=== PATIENT | female | born 1970 | race Caucasian/White ===

== ENCOUNTER → 2017-03-17 08:59 | Outpatient (CLI) | payer BC, SELFPAY ==
--- NOTE | 2017-03-17 09:24 | CA_ITS ---
PROCEDURE: 2-D echo Doppler study INDICATIONS FOR THE TEST: Chest pain COPD Heart MurmurX Tobacco Smoking Palpitations Fatigue Syncope Edema Hypertension Diabetes Mellitus Rheumatic Fever SOBXDOE Obesity HyperlipidemiaX Family History HD Additional History PATIENT INFORMATION HEIGHT: 62 WEIGHT:145 GENDER: Female B/P:121/84 2-D/M-MODE INTERPRETATION: 2-D MEASUREMENTS OBSERVED VALUES IN CMS Right Ventricular Dimension (RVDd) 1.9 Interventricular Septum (Thickness)(IVsd) .7 Left Ventricular Internal Dimensions(LVIDd) 5.2 Left Ventricular Posterior Wall (Thickness)(LVPWd) .6 Aortic Root 2.6 Aortic Cusp Separation 1.4 Left Atrial Dimensions (LAD) 2.6 2D 1. Left atrium is normal size, left ventricle is normal size hypertrophy, visually estimated ejection fraction 55% with no obvious regional wall motion abnormality. 2. The right atrium and right ventricle are normal size and contractility. 3. The aortic, mitral and tricuspid valve are structurally normal. 4. The pulmonic valve is poorly visualized 5. No significant pericardial effusion noted. DOPPLER INTERROGATION: Doppler interrogation of the aortic, mitral and tricuspid valvular presence of mild mitral and tricuspid regurgitation, tricuspid and jet velocity is insufficient for calculation of the right ventricular systolic pressure, diastolic parameters are within normal range. CONCLUSION: 1. Normal left ventricular size, preserved left ventricular systolic function, visually estimated ejection fraction 55% with no obvious regional wall motion abnormality. Diastolic parameters are within normal range. 2. Mild mitral and tricuspid regurgitation 3. No significant pericardial effusion noted.
== END ==
LOC: RT 08:59
PROVIDERS: Family Provider Emergency Medicine; PCP Emergency Medicine; Visit Provider Internal Medicine
DX: R06.02 Shortness of breath (principal)
CPT/HCPCS: 93306

== ENCOUNTER → 2017-04-28 13:20 | Outpatient (CLI) | payer BC, SELFPAY ==
[2017-04-28 14:14] LABS: Basophils % 0.6 % (0.1-2.0); Eosinophils # 0.2 K/mm3 (0.0-0.4); Eosinophils % 2.9 % (0.1-12.0); Hematocrit 43.7 % (37.0-47.0); Hemoglobin 14.5 g/dL (12.2-16.2); Lymphocytes # 2.5 K/mm3 (0.7-4.5); Lymphocytes % 31.9 K/mm3 (10-50); Mean Corpuscular HGB Conc 33.3 g/dL (31.8-35.4); Mean Corpuscular Hemoglobin 31.2 pg (27.0-31.2); Mean Corpuscular Volume 93.7 fl (81-99); Mean Platelet Volume 7.4 fl (7.4-10.4); Monocytes # 0.4 K/mm3 (0.1-1.0); Monocytes % 4.5 % (1.7-9.3); Neutrophils # 4.6 K/mm3 (1.8-7.8); Neutrophils % 60.1 % (37.0-80.0); Platelet Count 372 K/mm3 (142-424); Red Blood Count 4.66 M/mm3 (4.20-5.40); Red Cell Distribution Width 12.4 % (11.5-17.5); White Blood Count 7.7 K/mm3 (4.8-10.8)
[2017-04-28 14:33] LABS: Troponin I < 0.02 ng/ml (0.00-0.06)
[2017-04-28 14:38] LABS: Anion Gap 10.8 mEq/L (5-15); Blood Urea Nitrogen 12 mg/dL (7-18); Carbon Dioxide 30 mmol/L (21.0-32.0); Chloride 105 mmol/L (98-107); Creatinine,Serum 0.74 mg/dL (0.55-1.02); Estimated Glomerular Filt Rate 84 ml/min (>60); Free T4 (Free Thyroxine) 0.77 ng/dl (0.76-1.46); GFR (African American) 102 ML/MIN (>60); Glucose 87 mg/dL (74-106); Potassium 3.8 mmoL/L (3.5-5.1); Sodium 142 mmol/L (136-145); Thyroid Stimulating Hormone 2.61 uIU/ml (0.358-3.740)
== END ==
PROVIDERS: Visit Provider Internal Medicine
DX: R07.9 Chest pain, unspecified (principal)
CPT/HCPCS: 36415; 80048; 84439; 84443; 84484; 85025

== ENCOUNTER → 2017-05-04 08:05 | Outpatient (CLI) | payer BC, SELFPAY | LOC: RT 08:05 | PROVIDERS: Family Provider Emergency Medicine; PCP Emergency Medicine; Visit Provider Internal Medicine | DX: R07.9 Chest pain, unspecified (principal) | CPT/HCPCS: 93017 ==

== ENCOUNTER → 2017-05-15 15:24 | Outpatient (CLI) | payer BC, SELFPAY ==
[2017-05-15 18:23] LABS: Amphetamine/Metha Screen,Urine Negative ng/mL (<1000); Barbiturates Screen,Urine Negative ng/mL (<200); Benzodiazepines Screen,Urine Positive ng/mL (200); Cannabinoid Screen,Urine Negative ng/mL (<50); Cocaine Screen,Urine Negative ng/g (<300); Methadone Screen,Urine Negative ng/mL (<300); Opiate Screen,Urine Negative ng/mL (<300); Phencyclidine Screen,Urine Negative ng/mL (<25)
== END ==
PROVIDERS: Visit Provider Emergency Medicine
DX: Z79.899 Other long term (current) drug therapy (principal)
CPT/HCPCS: 80305

== ENCOUNTER → 2017-07-01 15:05 | Outpatient (REF) | payer BC, SELFPAY ==
[2017-07-01 18:56] LABS: Amphetamine/Metha Screen,Urine Negative ng/mL (<1000); Barbiturates Screen,Urine Negative ng/mL (<200); Benzodiazepines Screen,Urine Positive ng/mL (200); Cannabinoid Screen,Urine Negative ng/mL (<50); Cocaine Screen,Urine Negative ng/g (<300); Methadone Screen,Urine Negative ng/mL (<300); Opiate Screen,Urine Negative ng/mL (<300); Phencyclidine Screen,Urine Negative ng/mL (<25)
== END ==
LOC: LAB 15:05
PROVIDERS: Visit Provider Emergency Medicine
DX: Z79.891 Long term (current) use of opiate analgesic (principal)
CPT/HCPCS: 80305

== ENCOUNTER → 2017-08-12 15:31 | Outpatient (REF) | payer BC, SELFPAY ==
[2017-08-12 18:57] LABS: Amphetamine/Metha Screen,Urine Negative ng/mL (<1000); Barbiturates Screen,Urine Negative ng/mL (<200); Benzodiazepines Screen,Urine Positive ng/mL (200); Cannabinoid Screen,Urine Negative ng/mL (<50); Cocaine Screen,Urine Negative ng/g (<300); Methadone Screen,Urine Negative ng/mL (<300); Opiate Screen,Urine Negative ng/mL (<300); Phencyclidine Screen,Urine Negative ng/mL (<25)
== END ==
LOC: LAB 15:31
PROVIDERS: Visit Provider Emergency Medicine
DX: Z79.899 Other long term (current) drug therapy (principal)
CPT/HCPCS: 80305

== ENCOUNTER → 2017-11-04 16:19 | Outpatient (CLI) | payer BC, SELFPAY | PROVIDERS: Visit Provider Emergency Medicine | DX: R53.83 Other fatigue (principal) ==

== ENCOUNTER → 2017-12-29 13:23 | Outpatient (CLI) | payer OTHER, SELFPAY | PROVIDERS: Visit Provider Nurse Practitioner Family | DX: J02.9 Acute pharyngitis, unspecified (principal) ==

== ENCOUNTER → 2018-01-22 11:57 | Outpatient (CLI) | payer OTHER, SELFPAY ==
--- NOTE | 2018-01-22 12:13 | CT_ITS ---
CT angio chest HISTORY: Shortness of air, left anterior chest pain ITS.REASON: dyspnea ORDERING PHYSICIAN: Ant Cross MD PATIENT AGE: 47 years COMPARISON: None TECHNIQUE: Axial images obtained following the administration of 75 mL of Isovue 370 . Sagittal, and coronal reformatted images are also generated and reviewed. All CT scans at the facility use one or more dose reduction, viz: automated exposure control, ma/kV adjustment per patient size (including targeted exams where dose is matched to indication, i.e. head), or iterative reconstruction technique. FINDINGS: No evidence of aortic aneurysm, dissection, or pulmonary embolus. Normal heart size without evidence of pericardial effusion. No mediastinal or hilar mass or adenopathy. No lobar consolidation or collapse is evident. No suspicious pulmonary nodules infiltrates or effusions. No acute bony anomalies. Upper abdominal images are unremarkable. IMPRESSION: Negative CTA of the chest. No acute finding No evidence of pulmonary embolism aortic aneurysm or aortic dissection
== END ==
PROVIDERS: PCP Emergency Medicine; Visit Provider Internal Medicine Cardiovascular Disease
DX: R00.2 Palpitations (principal); R06.02 Shortness of breath; R53.83 Other fatigue; I10 Essential (primary) hypertension; E78.5 Hyperlipidemia, unspecified
CPT/HCPCS: 71275; 93270; Q9967

== ENCOUNTER → 2018-02-03 19:10 | Outpatient (CLI) | payer OTHER, SELFPAY ==
[2018-02-03 21:12] LABS: Amphetamine/Metha Screen,Urine Negative ng/mL (<1000); Barbiturates Screen,Urine Negative ng/mL (<200); Benzodiazepines Screen,Urine Positive ng/mL (<200); Cannabinoid Screen,Urine Negative ng/mL (<50); Cocaine Screen,Urine Negative ng/mL (<300); Methadone Screen,Urine Negative ng/mL (<300); Opiate Screen,Urine Negative ng/mL (<300); Phencyclidine Screen,Urine Negative ng/mL (<25)
== END ==
PROVIDERS: Visit Provider Emergency Medicine
DX: Z79.899 Other long term (current) drug therapy (principal)
CPT/HCPCS: 80305

== ENCOUNTER → 2018-08-02 18:31 | Outpatient (CLI) | payer OTHER, SELFPAY ==
[2018-08-02 20:23] LABS: Amphetamine/Metha Screen,Urine Negative ng/mL (<1000); Barbiturates Screen,Urine Negative ng/mL (<200); Benzodiazepines Screen,Urine Positive ng/mL (<200); Cannabinoid Screen,Urine Negative ng/mL (<50); Cocaine Screen,Urine Negative ng/mL (<300); Methadone Screen,Urine Negative ng/mL (<300); Opiate Screen,Urine Negative ng/mL (<300); Phencyclidine Screen,Urine Negative ng/mL (<25)
== END ==
PROVIDERS: Visit Provider Emergency Medicine
DX: F41.9 Anxiety disorder, unspecified (principal)
CPT/HCPCS: 80305

== ENCOUNTER → 2019-02-22 19:15 | Outpatient (CLI) | payer OTHER, SELFPAY ==
[2019-02-22 19:56] LABS: Amphetamine/Metha Screen,Urine Negative ng/mL (<1000); Barbiturates Screen,Urine Negative ng/mL (<200); Benzodiazepines Screen,Urine Positive ng/mL (<200); Cannabinoid Screen,Urine Negative ng/mL (<50); Cocaine Screen,Urine Negative ng/mL (<300); Methadone Screen,Urine Negative ng/mL (<300); Opiate Screen,Urine Negative ng/mL (<300); Phencyclidine Screen,Urine Negative ng/mL (<25)
== END ==
PROVIDERS: Visit Provider Emergency Medicine
DX: Z79.899 Other long term (current) drug therapy (principal)
CPT/HCPCS: 80305

== ENCOUNTER 2019-06-04 12:17 | Emergency (ER) | payer OTHER, SELFPAY ==
[2019-06-04 12:34] VITALS: BP 142/91; PULSE 80; RESP 19; TEMP 36.8; O2SAT 96; BMI 26.3
--- NOTE | 2019-06-04 12:37 | XR_ITS ---
PROCEDURE: XR CHEST 2V Patient Age:48Y CLINICAL HISTORY: cough congestion.. URI is stool Runny nose but nonsmoker.pPE. Patient in mask. COMPARISON: CXR CHEST(2 VIEWS-NOT PORTABLE) from 03/30/2013 ABDPELW/WO CT ABD PELVIS W/WO CONTRAST from 08/08/2015 CXR2V XR chest 2V from 01/20/[address] angio chest from 01/22/2018 FINDINGS: Prior CXR films are helpful as we again note mild mild accentuation of markings right infrahilar region towards right lower lobe a similar to the prior January 2018 CXR. Patient also had CT chest January 2018 which showed some atelectasis and minimal scarring infrahilar regions bilaterally.. However if symptoms progress follow-up two-view chest or CT warranted in this current [place] environment No pleural effusion but no pneumothorax. Heart is normal in size baljinder and mediastinal structures satisfactory. Chest wall unremarkable IMPRESSION: Mild accentuation of markings right infrahilar region appears similar to January 2018. More likely reflection of some of scarring and atelectasis features with similar appearance on Jan [address] . However if respiratory symptoms persist or progress, follow-up two-view CXR would be suggested to exclude early infiltrate here Dictated by: Tay Bowman MD 06/04/2019 13:53 Electronically signed by Tay Bowman MD in [place] 06/04/2019 13:53
[2019-06-04 12:47] LABS: UTC Influenza A Antigen Negative (Negative); UTC Influenza B Antigen Negative (Negative); UTC Strep Screen (Rapid) Negative (Negative)
--- NOTE | 2019-06-04 12:53 | HMH.EDUTC ---
[facility] [place] Disposition Clinical Impression: Bronchitis URI (upper respiratory infection) Qualifiers: URI type: unspecified URI Qualified Code(s): J06.9 - Acute upper respiratory infection, unspecified Disposition: Home, Self-Care Condition on Discharge: Good Instructions: Sore Throat, Sinusitis, Acute Bronchitis, Preventing the Spread of Coronavirus Discharge Instructions Additional Instructions: You was given a handout on what to do while waiting for your results of your COVID 19 test, please follow those instructions and self quarantine as discussed in [facility] Monitor Temp, Over the counter Motrin or Tylenol as directed/as needed Tylenol every 4 hours and Motrin every 6 hours (as long as your family doctor has told you that you can take it) for fever or pain. and straight to ER if unable to lower temp less than 101.0 after medication given *Warm salt water gargles may help to soothe the throat *Throat Lozenges *Warm fluids *Sleep elevated *Humidifier/Vaporizer Your throat swab was sent for culture. Those results are typically sent to your primary care. Be sure to follow up in 2-3 days with your family doctor/primary care physician if no improvement so they can review those result and treat if necessary. If you don?t have a primary care doctor, I recommend you get one but in the mean time, you will have to return to a walk in clinic Follow up IMMEDIATELY for new or worsening symptoms or no Noticeable improvement over the next 48-72 hours. 911 for difficulty breathing or swallowing Prescriptions: Azithromycin [Z-Wilder 250mg Tab] 250 mg PO DIRECTED #6 tab Transmission Status: Pending to [id number] Referrals: Deshaun Almanza MD [Primary Care Provider] - As needed Time of Disposition: 13:31 Medical Decision Making - Michele Inquiry Pt receiving controlled substance: No Michele was queried for this patient: No Vital Signs: 06/04/19 12:34 Temperature 98.2 F Temperature Source Oral Pulse Rate [Right Brachial] 80 Respiratory Rate 19 Blood Pressure [Right Arm] 142/91 H Blood Pressure Mean [Right Arm] 108 Blood Pressure Source [Right Arm] Automatic Cuff Blood Pressure Position [Right Arm] Sitting 02 Sat by Pulse Oximetry 96 Oxygen Delivery Method Room Air - Lab Data Lab Results 06/04/19 12:37: Influenza Type A Ag Negative, Influenza Type B Ag Negative 06/04/19 12:37: Strep Scn Rapid Clinic Negative Orders (Tests/Meds): ORDERS Category Date Time Status CXR 2 view (NOT portable) [XR chest 2V] Stat Exams 06/04/19 12:37 Taken SARS-CoV-2, DULCE MARIA Stat Lab 06/04/19 13:09 Ordered Strep Screen Confirmation Stat Micro 06/04/19 12:37 Received - Radiology Data #1 Image(s): Chest Image Reviewed: Yes I reviewed the patient's radiology image w/the ED provider Preliminary Findings: Normal/NAD - Reevaluation(s) Time: 13:23 Reevaluation #1: Patient discussed with COVID nurse and testing recommended, patient was tested and afterwards nose bleed small amount and was easily controlled with ice and pressure. Patient educated to go home and self quarantine and verbalized understanding Time: 13:33 Reevaluation #3: No bleeding from nose at this time. Patient dc'd home [facility] [place] HPI - General Stated complaint: cough, runny nose, headache sore throat tight ches Time Seen by Provider: 06/04/19 12:53 Mode of Arrival: Family Vehicle Source of Information: Patient Limitations: No Limitations Description of Symptoms (Recalled from Triage Doc. by RN): C/O COUGH,SORE THROAT,HEADACHE,RUNNY NOSE AND CHEST TIGHTNESS X 2 DAYS WITH NASTY TASTE IN MOUTH. PATIENTS SPOUSE WAS EXPOSED TO COVID POSITIVE PATIENT AT WORK HEENT Symptoms (Recalled from RN notes): Yes Resp Symptoms (Recalled from RN notes): Yes Skin Symptoms (Recalled from RN notes): No MS Symptoms (Recalled from RN notes): No Functional Status (Recalled from RN notes): N/A - History of Present Illness Provider Complaint: Patient states that her hu
[2019-06-04 13:33] VITALS: BP 142/91; PULSE 80; RESP 19; TEMP 36.8; O2SAT 96
[2019-06-05 16:45] LABS: Covid-19 Nasal PCR Sendout Lex NOT DETECTED
--- NOTE | 2019-06-05 20:21 | PC.NURSE ---
COVID 19 TEST RESULTS NEGATIVE. PATIENT NOTIFIED PER Renetta ZULETA RN @ [id number]. DR SILVA NOTIFIED AT 2020 PER Cindy BOYER RN
== END 2019-06-04 13:39 | disposition home or self-care (01) ==
PROVIDERS: Emergency Provider Nurse Practitioner; PCP Emergency Medicine
DX: J20.9 Acute bronchitis, unspecified (principal); I10 Essential (primary) hypertension; E78.5 Hyperlipidemia, unspecified; Z88.6 Allergy status to analgesic agent; Z79.899 Other long term (current) drug therapy
CPT/HCPCS: 71046; 87804; 87880; 99202; U0003

== ENCOUNTER → 2019-06-09 10:47 | Outpatient (CLI) | payer OTHER, SELFPAY ==
--- NOTE | 2019-06-09 10:54 | XR_ITS ---
PROCEDURE: XR CHEST 2V CLINICAL HISTORY: cough Cough and tightness in the chest COMPARISON: CXR CHEST(2 VIEWS-NOT PORTABLE) from 03/30/2013 CXR2V XR chest 2V from 01/20/[address] angio chest from 01/22/2018 XR CHEST 2V from 06/04/2019 FINDINGS: The cardiomediastinal silhouette and pulmonary vascularity are within normal limits. No lobar consolidation or collapse is evident. Faint nodular opacity is noted in the left lung base overlying the 6th rib anteriorly and may only be due to summation artifact and could be confirmed with follow-up chest x-ray with slightly different positioning. The remaining lungs are clear. No acute bony abnormalities. IMPRESSION: No acute finding. Faint nodular opacity left lung base possibly due to artifact and could be confirmed with follow-up Dictated by: Ankit Ware MD 06/09/2019 12:41 Electronically signed by Ankit Ware MD in [place] 06/09/2019 12:41
== END ==
PROVIDERS: PCP Emergency Medicine; Visit Provider Emergency Medicine
DX: R05 Cough (principal); R06.00 Dyspnea, unspecified; R53.83 Other fatigue
CPT/HCPCS: 71046

== ENCOUNTER → 2019-07-16 11:32 | Outpatient (CLI) | payer OTHER, SELFPAY ==
--- NOTE | 2019-07-16 11:42 | XR_ITS ---
PROCEDURE: XR HIP RT 2-3V W/PELVIS CLINICAL INDICATION: PAIN, RIGHT SIDE SCIATICA COMPARISON: No exams were available for comparison FINDINGS: No fracture or dislocation is evident. No significant degenerative change. No lytic or blastic change. Unremarkable soft tissues. Sutures are present in both sides of the pelvis IMPRESSION: Negative right hip Dictated by: Ankit Ware MD 07/16/2019 12:58 Electronically signed by Ankit Ware MD in [place] 07/16/2019 12:58
--- NOTE | 2019-07-16 11:42 | XR_ITS ---
PROCEDURE: XR LUMBAR SPINE MIN 4V CLINICAL INDICATION: LOWER BACK PAIN COMPARISON: LS5 LUMBAR SPINE 5 VIEWS from 01/24/2014 FINDINGS: There is mild lumbar scoliosis convex right. There are 4 non rib-bearing lumbar vertebra. There is mild degenerative disc disease with facet arthritic change at the lumbosacral junction with minimal retro listhesis of the lumbar spine at the lumbosacral junction. No acute fracture or dislocation. No lytic or blastic change. Mild osteitis pubis IMPRESSION: 1. Mild dextroscoliosis with degenerative changes and facet arthritic change at the lumbosacral junction Dictated by: Ankit Ware MD 07/16/2019 12:57 Electronically signed by Ankit Ware MD in [place] 07/16/2019 12:57
== END ==
PROVIDERS: PCP Emergency Medicine; Referring Provider Nurse Practitioner Family; Visit Provider Emergency Medicine
DX: M54.41 Lumbago with sciatica, right side (principal)
CPT/HCPCS: 72110; 73502

== ENCOUNTER → 2019-09-07 09:04 | Outpatient (CLI) | payer BC, SELFPAY ==
[2019-09-08 06:42] LABS: Covid-19 Nasal PCR Sendout Lex NOT DETECTED
== END ==
PROVIDERS: PCP Emergency Medicine; Visit Provider Emergency Medicine
DX: Z03.818 Encounter for observation for suspected exposure to other biological agents ruled out (principal)
CPT/HCPCS: U0004

== ENCOUNTER → 2019-09-27 11:08 | Outpatient (CLI) | payer BC, SELFPAY ==
[2019-09-27 11:52] LABS: Basophils # 0.1 K/mm3 (0-0.2); Basophils % 0.7 % (0.1-2.0); Eosinophils # 0.4 K/mm3 (0.0-0.4); Eosinophils % 4.2 % (0.1-12.0); Hematocrit 44.2 % (37.0-47.0); Hemoglobin 15.1 g/dL (12.2-16.2); Lymphocytes # 2.3 K/mm3 (0.7-4.5); Lymphocytes % 25.6 % (10-50); Mean Corpuscular HGB Conc 34.3 g/dL (31.8-35.4); Mean Corpuscular Hemoglobin 32.5 pg (27.0-31.2); Mean Corpuscular Volume 94.8 fl (81-99); Mean Platelet Volume 7.5 fl (7.4-10.4); Monocytes # 0.3 K/mm3 (0.1-1.0); Monocytes % 3.2 % (1.7-9.3); Neutrophils # 5.9 K/mm3 (1.8-7.8); Neutrophils % 66.3 % (37.0-80.0); Platelet Count 375 K/mm3 (142-424); Red Blood Count 4.66 M/mm3 (4.20-5.40); Red Cell Distribution Width 12.4 % (11.5-17.5); White Blood Count 8.9 K/mm3 (4.8-10.8)
[2019-09-27 12:51] LABS: Chloride 101 mmol/L (98-107)
[2019-09-27 12:52] LABS: Potassium 4.7 mmoL/L (3.5-5.1); Sodium 139 mmol/L (136-145)
[2019-09-27 12:54] LABS: Alanine Aminotransferase 18 U/L (12-78); Albumin Level 4.4 g/dl (3.5-5.0); Albumin/Globulin Ratio 1.4 (1.1-1.8); Alkaline Phosphatase 36 U/L (38-126); Anion Gap 12.7 mEq/L (5-15); Aspartate Amino Transferase 31 U/L (14-36); Bilirubin,Total 0.4 mg/dl (0.2-1.3); Blood Urea Nitrogen 12 mg/dl (7-17); Carbon Dioxide 30 mmol/L (22.0-30.0); Estimated Glomerular Filt Rate 77 ml/min (>60); GFR (African American) 93 ML/MIN (>60); Globulin 3.1 g/dL (1.3-3.2); Total Protein,Serum 7.5 g/dl (6.3-8.2)
[2019-09-27 12:55] LABS: Calcium 10.1 mg/dl (8.4-10.2); Chol/HDL Ratio 2.6 (1-3.5); Cholesterol 228 mg/dl (140-200); Glucose 94 mg/dl (74-100); HDL Cholesterol 89 mg/dl (40-60); Triglycerides 309 mg/dl (30-150); VLDL Cholesterol 62 mg/dL (0-40)
[2019-09-27 13:06] LABS: Coronavirus 19 IgG Antibody Negative (Negative); Coronavirus 19 IgM Antibody Negative (Negative); Direct LDL Cholesterol 99.58 mg/dL (100-129)
[2019-09-27 13:26] LABS: Thyroid Stimulating Hormone 1.17 uIU/mL (0.465-4.68)
== END ==
PROVIDERS: Visit Provider Nurse Practitioner Family
DX: Z03.818 Encounter for observation for suspected exposure to other biological agents ruled out (principal); R53.83 Other fatigue; E66.9 Obesity, unspecified; I10 Essential (primary) hypertension; E78.5 Hyperlipidemia, unspecified; E03.9 Hypothyroidism, unspecified
CPT/HCPCS: 36415; 80053; 80061; 84436; 84443; 85025; 86328

== ENCOUNTER → 2019-10-05 09:25 | Outpatient (CLI) | payer BC, SELFPAY ==
[2019-10-05 10:25] LABS: Hemoglobin A1C 5.3 % (4.0-6.0)
[2019-10-05 13:32] LABS: 25-OH Vitamin D, Total 39.3 ng/mL (30-100)
[2019-10-06 06:22] LABS: Vitamin B12 461 pg/mL (232-1245)
== END ==
PROVIDERS: Visit Provider Nurse Practitioner Family
DX: R53.83 Other fatigue (principal)
CPT/HCPCS: 36415; 82306; 82607; 83036

== ENCOUNTER 2019-12-05 15:27 | Emergency (ER) | payer BC, SELFPAY ==
[2019-12-05 15:57] VITALS: BP 153/79; PULSE 63; RESP 14; TEMP 36.7; O2SAT 96; BMI 27.1
[2019-12-05 15:59] LABS: UTC Strep Screen (Rapid) Negative (Negative)
--- NOTE | 2019-12-05 16:11 | HMH.EDUTC ---
[facility] [place] Disposition Clinical Impression: Pharyngitis Qualifiers: Pharyngitis/tonsillitis etiology: unspecified etiology Qualified Code(s): J02.9 - Acute pharyngitis, unspecified Disposition: Home, Self-Care Condition on Discharge: Good Instructions: Sore Throat, DI for Pharyngitis/Tonsillopharyngitis -- Adult Additional Instructions: Drink plenty of fluids. Take tylenol or ibuprofen for pain or fever. Take the medications as directed. Follow up with your regular doctor. GO TO THE ER FOR ANY WORSENING SYMPTOMS FOLLOW THE DIRECTIONS ON THE COVID-19 HAND OUT THAT WE GAVE YOU REGARDING SELF-ISOLATION UNTIL YOU KNOW YOUR COVID-19 RESULTS Prescriptions: Ondansetron [Zofran 4mg ODT] 4 mg PO Q8HP PRN #9 tab.rapdis PRN Reason: Nausea Transmission Status: Received by [id number] Azithromycin [Z-Wilder 250mg Tab*] 250 mg PO UD DOSE PK #6 tab Transmission Status[facility] Referrals: Deshaun Almanza MD [Primary Care Provider] - Forms: Work/School Release Time of Disposition: 16:21 Medical Decision Making - Medical Records Medical records reviewed: No: I reviewed the patient's medical records. - Michele Inquiry Pt receiving controlled substance: No Vital Signs: 12/05/19 15:57 12/05/19 16:35 Temperature 98.1 F 98.1 F Temperature Source Oral Oral Pulse Rate 63 Pulse Rate [Radial] 63 Respiratory Rate 14 14 Blood Pressure 153/79 H Blood Pressure [Right Arm] 153/79 H Blood Pressure Mean [Right Arm] 103 Blood Pressure Source Automatic Cuff Blood Pressure Source [Right Arm] Automatic Cuff Blood Pressure Position Sitting Blood Pressure Position [Right Arm] Sitting 02 Sat by Pulse Oximetry 96 Oxygen Delivery Method Room Air Room Air - Lab Data Lab Results 12/05/19 15:54: Strep Scn Rapid Clinic Negative Orders (Tests/Meds): ORDERS Category Date Time Status Covid-19 Nasal PCR Sendout Perez Routine Lab 12/05/19 16:22 Received Strep Screen Confirmation Stat Micro 12/05/19 15:54 Received [facility] [place] HPI - General Stated complaint: sore throatHA Time Seen by Provider: 12/05/19 16:11 Mode of Arrival: Ambulatory Source of Information: Patient Limitations: No Limitations Description of Symptoms (Recalled from Triage Doc. by RN): sore throat, prakash, diarrhea HEENT Symptoms (Recalled from RN notes): Yes Resp Symptoms (Recalled from RN notes): No Skin Symptoms (Recalled from RN notes): No MS Symptoms (Recalled from RN notes): No Functional Status (Recalled from RN notes): wnl - History of Present Illness Provider Complaint: She c/o sore throat for the past 2 days. She has also been having sinus congestion. - Related Data Previous Rx's Medication Instructions Recorded bisoprolol fumarate 5 mg tablet 2.5 mg PO DAILY #90 tab 09/21/19 levothyroxine 50 mcg tablet 50 mcg PO DAILY #90 tab 09/21/19 rosuvastatin 10 mg tablet 10 mg PO ONCE #90 tab 09/21/19 estradiol 2 mg tablet 2 mg PO DAILY #90 tab 09/26/19 alprazolam 0.5 mg tablet 0.5 mg PO TID #90 tab 11/11/19 Azithromycin [Z-Wilder 250mg Tab*] 250 mg PO UD DOSE PK #6 tab 12/05/19 Ondansetron [Zofran 4mg ODT] 4 mg PO Q8HP PRN #9 tab.rapdis 12/05/19 Allergies Allergy/AdvReac Type Severity Reaction Status Date / Time codeine Allergy Unknown Verified 11/11/19 09:20 adonis produc Allergy Anaphylaxis Uncoded 11/11/19 09:20 - Worker's Comp Is this a Worker's Comp case?: No [facility] History - Hepatitis A Screen Drug use history?: No High risk sexual behaviors?: No History of sexually transmitted infection?: No Currently employed?: No Childcare worker?: No Do you have indoor plumbing?: Yes Do you have electricity?: Yes Attestation statement:: This patient has been screened for Hepatitis A risk factors. I have reviewed the patient's past medical history: Yes Medical History: Reports:: Anxiety, Hyperlipidemia, Hypertension Other Medical History: Reports: Hypothyroidism, Thyroid Disease
[2019-12-05 16:35] VITALS: BP 153/79; PULSE 63; RESP 14; TEMP 36.7; O2SAT 96
== END 2019-12-05 16:36 | disposition home or self-care (01) ==
PROVIDERS: Emergency Provider Nurse Practitioner Family; PCP Emergency Medicine
DX: J02.9 Acute pharyngitis, unspecified (principal); Z20.828 Contact with and (suspected) exposure to other viral communicable diseases; E78.5 Hyperlipidemia, unspecified; I10 Essential (primary) hypertension; E03.9 Hypothyroidism, unspecified; Z79.899 Other long term (current) drug therapy
CPT/HCPCS: 87880; 99202; U0003; U0004

== ENCOUNTER 2019-12-09 11:47 | Emergency (ER) | payer OTHER, BC, SELFPAY ==
[2019-12-09 11:48] VITALS: BP 136/61; PULSE 53; RESP 16; TEMP 36.6; O2SAT 98; BMI 27.4
--- NOTE | 2019-12-09 12:12 | CT_ITS ---
PROCEDURE: CT ABDOMEN PELVIS W CON CLINICAL INDICATION: pain Upper abdominal pain, mid epigastric pain, distended COMPARISON: CT CT ABDOMEN PELVIS W CON from 09/28/2018 TECHNIQUE: IV Contrast: 75ML OPTIRAY 350 Oral Contrast None Axial images obtained with sagittal and coronal reformats. All CT scans at the facility use one or more dose reduction, viz: automated exposure control, ma/kV adjustment per patient size (including targeted exams where dose is matched to indication, i.e. head), or iterative reconstruction technique. FINDINGS: LOWER THORAX: Patchy ground-glass density is present in the right lung base medially. ABDOMEN & PELVIS: There has been a prior cholecystectomy. Small area of decreased attenuation is present in the falciform ligament region of liver and may be due to focal fatty infiltration. The spleen, adrenal glands, pancreas, and kidneys have an unremarkable appearance. No intestinal obstruction or free air. Unremarkable appendix. There is mild thickening of the cecum and ascending colon which may be due to nondistention or mild colitis. There is stranding of the pericolic fat in the left mid abdominal region anterior to the descending colon. There are no obvious diverticula in this region. This may be related to an area of epiploic appendagitis. No pelvic mass or abnormal fluid collection. There has been a prior hysterectomy. No acute bony findings. There is mild lumbar curvature convex right. IMPRESSION: 1. Mild stranding of the fat anterior to the descending colon which may be related to an area of epiploic appendagitis. 2. Mild amount of retained colonic feces with thickening of the cecum and ascending colon which may only be due to nondistention versus mild colitis. 3. Patchy ground-glass attenuation in the right lower lobe medially nonspecific but could be seen with atypical pneumonia. Dictated by: Ankit Ware MD 12/09/2019 13:38 Ankit Ware MD in [place] 12/09/2019 13:38
[2019-12-09 12:26] LABS: Microscopic, Urine URINE MICROSCOPIC (MICROSCOPIC)
[2019-12-09 12:28] LABS: Basophils # 0.1 K/mm3 (0-0.2); Basophils % 0.6 % (0.1-2.0); Eosinophils # 0.3 K/mm3 (0.0-0.4); Eosinophils % 3.6 % (0.1-12.0); Hematocrit 44.3 % (37.0-47.0); Hemoglobin 14.3 g/dL (12.2-16.2); Lymphocytes # 2.4 K/mm3 (0.7-4.5); Lymphocytes % 29.4 % (10-50); Mean Corpuscular HGB Conc 32.3 g/dL (31.8-35.4); Mean Corpuscular Hemoglobin 30.6 pg (27.0-31.2); Mean Corpuscular Volume 94.7 fl (81-99); Mean Platelet Volume 8.1 fl (7.4-10.4); Monocytes # 0.5 K/mm3 (0.1-1.0); Monocytes % 6.1 % (1.7-9.3); Neutrophils % 60.3 % (37.0-80.0); Platelet Count 427 K/mm3 (142-424); Red Blood Count 4.68 M/mm3 (4.20-5.40); White Blood Count 8.2 K/mm3 (4.8-10.8)
[2019-12-09 12:31] LABS: Appearance,Urine CLEAR (Clear); Bilirubin,Urine Negative (Negative); Blood, Urine Negative (Negative); Color,Urine YELLOW (Yellow); Glucose,Urine (UA) Negative (Negative); Ketones,Urine Negative (Negative); Leukocyte Esterase,Urine Negative (Negative); Nitrate,Urine Negative (Negative); Protein,Urine Negative (Negative); Specific Gravity, Urine <= 1.005 (1.005-1.030); Urobilinogen,Urine 0.2 EU/dl (0.2)
[2019-12-09 12:32] LABS: Chloride 102 mmol/L (98-107); Potassium 4.1 mmoL/L (3.5-5.1); Sodium 139 mmol/L (136-145)
[2019-12-09 12:35] LABS: Alanine Aminotransferase 16 U/L (12-78); Alkaline Phosphatase 32 U/L (38-126); Amylase 58 U/L (30-110); Anion Gap 12.1 mEq/L (5-15); Aspartate Amino Transferase 29 U/L (14-36); Bilirubin,Total 0.5 mg/dl (0.2-1.3); Blood Urea Nitrogen 14 mg/dl (7-17); Carbon Dioxide 29 mmol/L (22.0-30.0); Creatinine Clearance Estimated 91 mL/min (50-200); Estimated Glomerular Filt Rate 76 ml/min (>60); GFR (African American) 92 ML/MIN (>60)
[2019-12-09 12:36] LABS: Albumin Level 4.6 g/dl (3.5-5.0); Albumin/Globulin Ratio 1.3 (1.1-1.8); Calcium 10.1 mg/dl (8.4-10.2); Globulin 3.6 g/dL (1.3-3.2); Glucose 92 mg/dl (74-100); Lipase 199 U/L (23-300); Total Protein,Serum 8.2 g/dl (6.3-8.2)
--- NOTE | 2019-12-09 12:36 | HMH.EDABDPAI ---
ED Disposition Clinical Impression: Colitis Disposition: Home, Self-Care Condition on Discharge: Good Instructions: DI for Colitis Prescriptions: Dicyclomine HCl [Bentyl 10mg capsule] 10 mg PO TID 6 Days #18 cap Transmission Status: Pending to [id number] Referrals: Deshaun Almanza MD [Primary Care Provider] - - Critical Care Critical Care Time: No Attestation: On 12/09/19, the high probability of a clinically significant, sudden or life threatening deterioration of the following system(s) required my full and direct attention, intervention and personal management. The time I documented below is in addition to time spent performing reported procedures but includes the following listed in this critical care notation. Medical Decision Making - Medical Records Medical records reviewed: Yes: I reviewed the patient's medical records. - Michele Inquiry Pt receiving controlled substance: No Vital Signs: 12/09/19 11:48 Temperature 98 F Temperature Source Oral Pulse Rate [Radial] 53 L Respiratory Rate 16 Blood Pressure [Right Radial Artery] 136/61 Blood Pressure Mean [Right Radial Artery] 86 Blood Pressure Position [Right Radial Artery] Sitting 02 Sat by Pulse Oximetry 98 - Lab Data Lab Results 12/09/19 12:18: WBC 8.2, RBC 4.68, Hgb 14.3, Hct 44.3, MCV 94.7, MCH 30.6, MCHC 32.3, RDW 12.0, Plt Count 427 H, MPV 8.1, Neut % (Auto) 60.3, Lymph % (Auto) 29.4, [place] % (Auto) 6.1, Eos % (Auto) 3.6, Baso % (Auto) 0.6, Neut # (Auto) 5.0, Lymph # (Auto) 2.4, [place] # (Auto) 0.5, Eos # (Auto) 0.3, Baso # (Auto) 0.1 12/09/19 12:18: Sodium 139, Potassium 4.1, Chloride 102, Carbon Dioxide 29, Anion Gap 12.1, BUN 14, Creatinine 0.80, Estimated Creat Clear 91, Estimated GFR 76, Est GFR ( Amer) 92, Glucose 92, Calcium 10.1, Total Bilirubin 0.5, AST 29, ALT 16, Alkaline Phosphatase 32 L, Total Protein 8.2, Albumin 4.6, Globulin 3.6 H, Albumin/Globulin Ratio 1.3, Amylase 58, Lipase 199 12/09/19 12:20: Urine Color Yellow, Urine Appearance Clear, Urine pH 6.0, Ur Specific Har[place] <= 1.005, Urine Protein Negative, Urine Glucose (UA) Negative, Urine Ketones Negative, Urine Blood Negative, Urine Nitrate Negative, Urine Bilirubin Negative, Urine Urobilinogen 0.2, Ur Leukocyte Esterase Negative, Urine RBC Occasional, Urine WBC 3-5, Ur Squamous Epith Cells 5-10 Result diagrams: 12/09/19 12:18 12/09/19 12:18 Orders (Tests/Meds): ED MEDICATIONS Generic Name Dose Route Start Last Admin Trade Name Freq PRN Reason Stop Dose Admin Sodium Chloride 8 ml 12/09/19 12:28 Sodium Chloride 0.9% 10ml Vial IV 01/08/20 12:27 NEEDED PRN dilute pepcid Sodium Chloride 10 ml 12/09/19 12:28 Sodium Chloride 0.9% 10ml Flush Syringe IV 01/08/20 12:27 NEEDED PRN Maintain IV Site Discontinued Medications Generic Name Dose Route Start Last Admin Trade Name Freq PRN Reason Stop Dose Admin Famotidine 20 mg 12/09/19 12:28 12/09/19 12:41 Famotidine 20mg/2ml Vial IV 12/09/19 12:29 20 mg ONCE ONE Administration Sodium Chloride 1,000 mls @ 999 mls/hr 12/09/19 12:30 12/09/19 12:40 Sod Chlor 0.9% 1000ml Bag IV 12/09/19 13:30 999 mls/hr .Q1H1M PRIMO Administration Ioversol 75 ml 12/09/19 13:00 12/09/19 13:01 Ioversol-350 (74%) 100ml Vial IV 12/09/19 13:01 75 ml ONCE ONE Administration Protocol Ondansetron HCl 4 mg 12/09/19 12:28 12/09/19 12:41 Ondansetron 4mg/2ml Vial IV 12/09/19 12:29 4 mg ONCE ONE Administration Sodium Chloride 10 ml 12/09/19 13:00 12/09/19 13:01 Sodium Chloride 0.9% 10ml Syr (Rad Only) IV 12/09/19 13:01 10 ml ONCE ONE Administration - CT Data CT Scan: Abdomen, Pelvis Time Received: 13:[address] Reviewed: Yes: I have reviewed the patient's CT results, I have viewed the radiologist's interpretation Findings Narrative: IMPRESSION: 1. Mild stranding of the fat anterior to the descending colon which may be re
[2019-12-09 12:41] LABS: RBC,Urine Occasional #/hpf (0-3)
--- NOTE | 2019-12-09 12:50 | PC.NURSE ---
pt to rad
[2019-12-09 14:09] VITALS: BP 112/74; PULSE 78; RESP 16; TEMP 36.6; O2SAT 98
== END 2019-12-09 14:11 | disposition home or self-care (01) ==
PROVIDERS: Emergency Provider Emergency Medicine; PCP Emergency Medicine
DX: K52.9 Noninfective gastroenteritis and colitis, unspecified (principal); E78.5 Hyperlipidemia, unspecified; I10 Essential (primary) hypertension; Z79.899 Other long term (current) drug therapy
CPT/HCPCS: 74177; 80053; 81001; 82150; 83690; 85025; 96365; 96375; 99283; J2405; Q9967

== ENCOUNTER 2019-12-21 09:00 | Emergency (ER) | payer OTHER, BC, SELFPAY ==
[2019-12-21 09:13] VITALS: BP 122/79; PULSE 68; RESP 19; TEMP 36.8; O2SAT 98; BMI 27.4
--- NOTE | 2019-12-21 09:16 | HMH.EDUTC ---
[facility] [place] Disposition Clinical Impression: URI (upper respiratory infection) Qualifiers: URI type: unspecified URI Qualified Code(s): J06.9 - Acute upper respiratory infection, unspecified Disposition: Home, Self-Care Condition on Discharge: Good Instructions: Sore Throat, Sinusitis, DI for Cough -- Adult Additional Instructions: *Monitor Temp, Over the counter Motrin or Tylenol as directed/as needed Tylenol every 4 hours and Motrin every 6 hours (as long as your family doctor has told you that you can take it) for fever or pain. and straight to ER if unable to lower temp less than 101.0 after medication given *Warm salt water gargles may help to soothe the throat *Throat Lozenges *Warm fluids like tea with honey may help to soothe the throat *Sleep elevated *Humidifier/Vaporizer Follow up IMMEDIATELY for new or worsening symptoms or no Noticeable improvement over the next 48-72 hours. 911 for difficulty breathing or swallowing You was tested for today for COVID19 your test result should be back later this evening, you may call back later this evening to see if your test results are back and the result You was given a handout with instructions for Self Quarantine and Self isolation for while you wait on test results and what to do if they are positive Prescriptions: Fluticasone Propionate [Flonase 50mcg nasal spray 16gm] 1 - 2 spr NS DAILY #1 bottle Transmission Status: Pending to [facility] Referrals: Deshaun Almanza MD [Primary Care Provider] - As needed Medical Decision Making - Michele Inquiry Pt receiving controlled substance: No Michele was queried for this patient: No Vital Signs: 12/21/19 09:13 Temperature 98.3 F Temperature Source Oral Pulse Rate [Radial] 68 Respiratory Rate 19 Blood Pressure [Right Arm] 122/79 Blood Pressure Mean [Right Arm] 93 Blood Pressure Source [Right Arm] Automatic Cuff Blood Pressure Position [Right Arm] Sitting 02 Sat by Pulse Oximetry 98 Oxygen Delivery Method Room Air Orders (Tests/Meds): ED MEDICATIONS Discontinued Medications Generic Name Dose Route Start Last Admin Trade Name Freq PRN Reason Stop Dose Admin Ceftriaxone Sodium 1 gm 12/21/19 09:27 12/21/19 09:34 Ceftriaxone 1gm Vial IM 12/21/19 09:28 1 gm ONCE ONE Administration Protocol Lidocaine HCl 0 ml 12/21/19 09:27 12/21/19 09:34 Lidocaine 1% 5ml Pf Vial IM 12/21/19 09:28 2.1 ml ONCE ONE Administration Methylprednisolone Sodium Succinate 125 mg 12/21/19 09:27 12/21/19 09:35 Methylprednisolone Sod Succ 125mg Vial IM 12/21/19 09:28 Not Given ONCE ONE ORDERS Category Date Time Status Covid-19 Nasal PCR ([facility]) Routine Lab 12/21/19 09:13 Ordered Medical Decision Narrative: Patient states that she has taken Rocephin before without complication or reactions Initially Prescribed patient Tessalone perrles and patient states that she took them before and they made her throat feel funny, prescription was cancelled and patient informed to take OTC cough medication [facility] [place] HPI - General Stated complaint: sore throat,headache,runny nose Time Seen by Provider: 12/21/19 09:16 Mode of Arrival: Ambulatory Source of Information: Patient Limitations: No Limitations Description of Symptoms (Recalled from Triage Doc. by RN): cough, sore throat, runny nose, fatigue x 1 week. HEENT Symptoms (Recalled from RN notes): Yes Resp Symptoms (Recalled from RN notes): No Skin Symptoms (Recalled from RN notes): No MS Symptoms (Recalled from RN notes): No Functional Status (Recalled from RN notes): wnl - History of Present Illness Provider Complaint: Patient states that she was seen and treated about 2 weeks ago due to suspected strep throat State that her throat felt better after completing medication but now symptoms has started again Having sinus congestion, cough, runny nose and feeling tired States that she feels like she has a sinus infection States that she had to call int
[2019-12-21 10:06] VITALS: BP 122/79; PULSE 68; RESP 19; TEMP 36.8; O2SAT 98
[2019-12-22 17:30] LABS: Covid-19 Nasal PCR Sendout Lex Not Detected
== END 2019-12-21 10:07 | disposition home or self-care (01) ==
PROVIDERS: Emergency Provider Nurse Practitioner; PCP Emergency Medicine
DX: Z20.828 Contact with and (suspected) exposure to other viral communicable diseases (principal); J06.9 Acute upper respiratory infection, unspecified
CPT/HCPCS: 96372; 99202; U0004

== ENCOUNTER 2020-01-10 12:24 | Emergency (ER) | payer OTHER, BC, SELFPAY ==
[2020-01-10 12:30] VITALS: BP 144/77; PULSE 74; RESP 18; TEMP 36.6; O2SAT 98; BMI 27.4
[2020-01-10 12:50] LABS: UTC Strep Screen (Rapid) Positive (Negative)
--- NOTE | 2020-01-10 13:06 | HMH.EDUTC ---
[facility] [place] Disposition Clinical Impression: Strep throat, Encounter for laboratory testing for COVID-19 virus Disposition: Home, Self-Care Condition on Discharge: Good Instructions: Strep Throat, DI for Strep Throat, Amoxicillin Additional Instructions: *Monitor Temp, Over the counter Motrin or Tylenol as directed/as needed Tylenol every 4 hours and Motrin every 6 hours (as long as your family doctor has told you that you can take it) for fever or pain. and straight to ER if unable to lower temp less than 101.0 after medication given *Warm salt water gargles may help to soothe the throat *Throat Lozenges *Warm fluids like tea with honey may help to soothe the throat *Sleep elevated *Humidifier/Vaporizer *Flonase 2 sprays in each nostril daily but be aware that it may take 2-3 days before you notice improvement *If you did not take Penicillin shot or was unable to, start taking antibiotic immediately and make sure that you take it for the FULL length of time although you should start to feel better in 24-48 hours *change toothbrush and toothpaste 24-48 hours after starting to take antibiotics so you do not reinfect yourself Monitor Temp. Tylenol and/or Ibuprofen as needed. ER if fever is no less than 101 despite alternating Tylenol and Ibuprofen * Encourage fluids, water, Gatorade, powerade, pedialyte if infant/toddler/or child *Cold fluids, popsicles and ice cream may feel good on his throat Follow up IMMEDIATELY for new or worsening symptoms or no Noticeable improvement over the next 48-72 hours. 911 for difficulty breathing or swallowing You was tested for today for COVID19 your test result should be back in the next 24-48 hours, you may call to the [facility] tomorrow to see if your test results are back and the result [phone] [facility] hours are 9am-9pm You was given a handout with instructions for Self Quarantine and Self isolation for while you wait on test results and what to do if they are positive If you are positive the Health Dept will be contacting you also Prescriptions: Amoxicillin [Amoxicillin 500mg Cap] 500 mg PO BID 10 Days #20 cap Transmission Status: Pending to [facility] Referrals: Deshaun Almanza MD [Primary Care Provider] - As needed Forms: Work/School Release Time of Disposition: 13:09 Medical Decision Making - Michele Inquiry Pt receiving controlled substance: No Michele was queried for this patient: No Vital Signs: 01/10/20 12:30 Temperature 97.8 F Temperature Source Oral Pulse Rate [Right Brachial] 74 Respiratory Rate 18 Blood Pressure [Right Arm] 144/77 H Blood Pressure Mean [Right Arm] 99 Blood Pressure Source [Right Arm] Automatic Cuff Blood Pressure Position [Right Arm] Sitting 02 Sat by Pulse Oximetry 98 Oxygen Delivery Method Room Air - Lab Data Lab results reviewed: Yes: I reviewed the patient's lab results. Lab Results 01/10/20 12:48: Strep Scn Rapid Clinic Positive A Orders (Tests/Meds): ORDERS Category Date Time Status Covid-19 Nasal PCR Sendout Perez Stat Lab 01/10/20 12:30 Received [facility] [place] HPI - General Stated complaint: Runny nose, headache, nausea Time Seen by Provider: 01/10/20 13:06 Mode of Arrival: Ambulatory Source of Information: Patient Limitations: No Limitations Description of Symptoms (Recalled from Triage Doc. 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
[2020-01-10 13:16] VITALS: BP 144/77; PULSE 74; RESP 18; TEMP 36.6; O2SAT 98
[2020-01-11 15:30] LABS: Covid-19 Nasal PCR Sendout Lex Not Detected
== END 2020-01-10 13:20 | disposition home or self-care (01) ==
PROVIDERS: Emergency Provider Nurse Practitioner; PCP Emergency Medicine
DX: J02.0 Streptococcal pharyngitis (principal); Z20.828 Contact with and (suspected) exposure to other viral communicable diseases; I10 Essential (primary) hypertension; E03.9 Hypothyroidism, unspecified; E78.5 Hyperlipidemia, unspecified; F41.9 Anxiety disorder, unspecified; Z79.899 Other long term (current) drug therapy
CPT/HCPCS: 87880; 99202; U0004

== ENCOUNTER → 2020-04-13 18:14 | Outpatient (CLI) | payer OTHER, BC, SELFPAY ==
[2020-04-13 19:55] LABS: Amphetamine/Metha Screen,Urine Negative ng/ml (<1000)
[2020-04-13 19:56] LABS: Barbiturates Screen,Urine Negative ng/ml (<200); Benzodiazepines Screen,Urine Positive ng/ml (<200)
[2020-04-13 19:57] LABS: Cannabinoid Screen,Urine Negative ng/ml (<50)
[2020-04-13 19:58] LABS: Cocaine Screen,Urine Negative ng/ml (<300); Methadone Screen,Urine Negative ng/ml (<300)
[2020-04-13 19:59] LABS: Opiate Screen,Urine Negative ng/ml (<300)
[2020-04-13 20:00] LABS: Phencyclidine Screen,Urine Negative ng/ml (<25)
== END ==
PROVIDERS: Visit Provider Emergency Medicine
DX: Z79.899 Other long term (current) drug therapy (principal)
CPT/HCPCS: 80305

== ENCOUNTER → 2020-04-26 16:49 | Outpatient (CLI) | payer BC, SELFPAY ==
--- NOTE | 2020-04-26 16:49 | MM_ITS ---
PROCEDURE: MM DIG SCREENING MAMM BI W/CAD Digital Breast Tomosynthesis Included CLINICAL INDICATION: screening There is no personal or family history of breast cancer. Patient is currently on estrogen. COMPARISON: MG DMSB DIG MAMM-SCREEN VANESSA from 08/20/2012 MG D[facility]B DIG MAMM-SCREEN VANESSA from 12/22/2014 CT,MG DMSB DIG MAMM-SCREEN VANESSA W/CAD from 12/01/2016 TECHNIQUE: Standard CC and MLO images and 3D Tomosynthesis was obtained. R2 CAD reviewed. FINDINGS: Scattered fibroglandular densities are seen in the central portions of both breasts. There are no CAD markers. There is no suspicious lesion is breast and no suspicious microcalcifications. IMPRESSION: Fibrofatty parenchyma with no suspicious lesions seen BI-RAD Category: 1 Negative FOLLOW-UP: 1YR 1 Year Follow-up (A letter has been sent to the patient regarding results of the study.) Dictated by: Dr. Jem Carter MD 05/05/2020 09:56 Dr. Jem Carter MD in [place] 05/05/2020 09:56
== END ==
PROVIDERS: PCP Emergency Medicine; Visit Provider Emergency Medicine
DX: Z12.31 Encounter for screening mammogram for malignant neoplasm of breast (principal)
CPT/HCPCS: 77063; 77067

== ENCOUNTER 2020-05-07 16:55 | Emergency (ER) | payer BC, SELFPAY ==
[2020-05-07 17:00] VITALS: BP 147/74; PULSE 80; RESP 14; TEMP 37; O2SAT 96; BMI 27.4
--- NOTE | 2020-05-07 17:26 | HMH.EDUTC ---
[facility] [place]ression: Strep throat Disposition: Home, Self-Care Condition on Discharge: Good Instructions: Strep Throat, DI for Strep Throat Additional Instructions: Drink plenty of fluids. Take tylenol or ibuprofen for pain or fever. Take the medications as directed. Follow up with your regular doctor. GO TO THE ER FOR ANY WORSENING SYMPTOMS Prescriptions: Amoxicillin [Amoxicillin 500mg Tab] 500 mg PO TID 10 Days #30 tab Transmission Status: Received by [facility] predniSONE [Deltasone 10mg tablet] 10 mg PO BID 3 Days #6 tab Transmission Status: [facility] Referrals: Deshaun Almanza MD [Primary Care Provider] - Forms: Work/School Release Time of Disposition: 17:39 Medical Decision Making - Medical Records Medical records reviewed: No: I reviewed the patient's medical records. - Michele Inquiry Pt receiving controlled substance: No Vital Signs: 05/07/20 17:00 05/07/20 17:43 Temperature 98.6 F 98.6 F Temperature Source Oral Pulse Rate 80 Pulse Rate [Right Brachial] 80 Respiratory Rate 14 14 Blood Pressure 147/74 H Blood Pressure [Right Arm] 147/74 H Blood Pressure Mean [Right Arm] 98 Blood Pressure Source [Right Arm] Automatic Cuff Blood Pressure Position [Right Arm] Sitting 02 Sat by Pulse Oximetry 96 Oxygen Delivery Method Room Air - Lab Data Lab results reviewed: Yes: I reviewed the patient's lab results. [facility] [place] - General Stated complaint: sore throat, ear pain,[place] Time Seen by Provider: 05/07/20 17:27 Mode of Arrival: Ambulatory Source of Information: Patient Limitations: No Limitations Description of Symptoms (Recalled from Triage Doc. by RN): PATIENT C/O SORE THROAT, EAR ACHE, HEADACHE, AND FATIGUE SINCE THURSDAY HEENT Symptoms (Recalled from RN notes): Yes Resp Symptoms (Recalled from RN notes): No Skin Symptoms (Recalled from RN notes): No MS Symptoms (Recalled from RN notes): No Functional Status (Recalled from RN notes): WNL - History of Present Illness Provider Complaint: She c/o sore throat for the past 2 days. She has also had fatigue and chilling. She thinks that she has strep throat. - Related Data Home Medications Medication Instructions Recorded Confirmed Levothyroxine Sodium [Synthroid 50 mcg PO DAILY 05/07/20 05/07/20 50mcg (0.05mg) tab] Rosuvastatin Calcium See Rx Instructions .ROUTE .COMPLEX 05/07/20 05/07/20 bisoproloL fumarate [Bisoprolol See Rx Instructions .ROUTE .COMPLEX 05/07/20 05/07/20 Fumarate] Previous Rx's Medication Instructions Recorded estradiol 2 mg tablet 2 mg PO DAILY #90 tab 09/26/19 alprazolam 0.5 mg tablet 0.5 mg PO TID #90 tab 04/13/20 Amoxicillin [Amoxicillin 500mg Tab] 500 mg PO TID 10 Days #30 tab 05/07/20 predniSONE [Deltasone 10mg tablet] 10 mg PO BID 3 Days #6 tab 05/07/20 Allergies Allergy/AdvReac Type Severity Reaction Status Date / Time codeine Allergy Unknown Verified 04/13/20 14:55 adonis produc Allergy Anaphylaxis Uncoded 04/13/20 14:55 - Worker's Comp Is this a Worker's Comp case?: No [facility] History - Hepatitis A Screen Drug use history?: No High risk sexual behaviors?: No History of sexually transmitted infection?: No Currently employed?: No Childcare worker?: No Do you have indoor plumbing?: Yes Do you have electricity?: Yes Attestation statement:: This patient has been screened for Hepatitis A risk factors. I have reviewed the patient's past medical history: Yes Medical History: Reports:: Anxiety, Hyperlipidemia, Hypertension Other Medical History: Reports: Hypothyroidism, Thyroid Disease Other Surgeries: Yes: No Previous Surgery, Cardiac Catheterization, , Diagnostic Lap, Tubal Ligation Amputation: No Fractures: No Comment: 1996- PRIMARY . 2000- REPEAT . 2005- DX. LSC. 2006- LAVH,BSO. 2005-choleycystectomy. 2009- RT. LEG VEIN SURGERY WITH LASER - Social History Smoking Status
[2020-05-07 17:43] VITALS: BP 147/74; PULSE 80; RESP 14; TEMP 37; O2SAT 96
== END 2020-05-07 17:45 | disposition home or self-care (01) ==
PROVIDERS: Emergency Provider Nurse Practitioner Family; PCP Emergency Medicine
DX: J02.0 Streptococcal pharyngitis (principal); I10 Essential (primary) hypertension; E78.5 Hyperlipidemia, unspecified; E03.9 Hypothyroidism, unspecified; F41.9 Anxiety disorder, unspecified; Z79.899 Other long term (current) drug therapy
CPT/HCPCS: 99202; G0463

== ENCOUNTER 2020-06-25 11:06 | Emergency (ER) | payer BC, SELFPAY ==
[2020-06-25 11:20] VITALS: BP 146/83; PULSE 70; RESP 21; TEMP 36.9; O2SAT 98; BMI 26.1
--- NOTE | 2020-06-25 12:08 | HMH.EDUTC ---
[facility] [place]: Strep [place] Disposition: Home, Self-Care Condition on Discharge: Good Instructions: DI for Strep Throat Additional Instructions: Start antibiotics today be sure to take it as ordered with the full length of time although you should start feeling better in 24-48 hours. Change toothbrush and toothpaste 24-48 hours after starting antibiotics Tylenol or Motrin as needed for fever or pain Encourage fluids, water, Gatorade, Powerade, try cold fluids, popsicles, ice cream will make it feel better You are contagious for 24 hours. Avoid kissing anyone, no eating or drinking after anyone. You are contagious. Follow-up the ER for new or worsening symptoms or no noticeable improvement over the next 24-48 hours. Follow-up with PCP this week. Prescriptions: Azithromycin [Zithromax 250mg tab] 250 mg PO DIRECTED #6 tab Transmission Status: Pending to [facility] Referrals: Deshaun Almanza MD [Primary Care Provider] - Forms: Work/School Release Time of Disposition: 12:13 Medical Decision Making - Michele Inquiry Pt receiving controlled substance: No Vital Signs: 06/25/20 11:20 Temperature 98.4 F Temperature Source Oral Pulse Rate [Right Brachial] 70 Respiratory Rate 21 Blood Pressure [Right Arm] 146/83 H Blood Pressure Mean [Right Arm] 104 Blood Pressure Source [Right Arm] Automatic Cuff Blood Pressure Position [Right Arm] Sitting 02 Sat by Pulse Oximetry 98 Oxygen Delivery Method Room Air [facility] [place] - General Chief complaint: [facility] Stated complaint: sore throat Time Seen by Provider: 06/25/20 12:08 Mode of Arrival: Ambulatory Source of Information: Patient Limitations: No Limitations Description of Symptoms (Recalled from Triage Doc. by RN): PATIENT C/O SORE THROAT, COUGH, AND EARACHE X 1 WEEK HEENT Symptoms (Recalled from RN notes): Yes Resp Symptoms (Recalled from RN notes): Yes Skin Symptoms (Recalled from RN notes): No MS Symptoms (Recalled from RN notes): No Functional Status (Recalled from RN notes): WNL - History of Present Illness Provider Complaint: 49 yr old female presents for sore throat and ear pain for 1 week. freq strep - Related Data Home Medications Medication Instructions Recorded Confirmed Rosuvastatin Calcium See Rx Instructions .ROUTE .COMPLEX 05/07/20 05/07/20 bisoproloL fumarate [Bisoprolol See Rx Instructions .ROUTE .COMPLEX 05/07/20 05/07/20 Fumarate] Previous Rx's Medication Instructions Recorded estradiol 2 mg tablet 2 mg PO DAILY #90 tab 09/26/19 alprazolam 0.5 mg tablet 0.5 mg PO TID #90 tab 04/13/20 Amoxicillin [Amoxicillin 500mg Tab] 500 mg PO TID 10 Days #30 tab 05/07/20 predniSONE [Deltasone 10mg tablet] 10 mg PO BID 3 Days #6 tab 05/07/20 levothyroxine 50 mcg tablet See Rx Instructions .ROUTE 06/11/20 .COMPLEX #90 tab Azithromycin [Zithromax 250mg 250 mg PO DIRECTED #6 tab 06/25/20 tab] Allergies Allergy/AdvReac Type Severity Reaction Status Date / Time codeine Allergy Unknown Verified 04/13/20 14:55 adonis produc Allergy Anaphylaxis Uncoded 04/13/20 14:55 - Worker's Comp Is this a Worker's Comp case?: No [facility] History - Hepatitis A Screen Drug use history?: No High risk sexual behaviors?: No History of sexually transmitted infection?: No Currently employed?: No Childcare worker?: No Do you have indoor plumbing?: Yes Do you have electricity?: Yes Attestation statement:: This patient has been screened for Hepatitis A risk factors. I have reviewed the patient's past medical history: Yes Medical History: Reports:: Anxiety, Hyperlipidemia, Hypertension Other Medical History: Reports: Hypothyroidism, Thyroid Disease Other Surgeries: Yes: No Previous Surgery, Cardiac Catheterization, , Diagnostic Lap, Tubal Ligation Amputation: No Fractures: No Comment: 1996- PRIMARY . 2000- REPEAT . 2005- DX. LSC. 2006- LAVH,BSO. 2006-choleyc
[2020-06-25 12:12] LABS: UTC Strep Screen (Rapid) Positive (Negative)
[2020-06-25 12:14] VITALS: BP 146/83; PULSE 70; RESP 21; TEMP 36.9; O2SAT 98
== END 2020-06-25 12:19 | disposition home or self-care (01) ==
PROVIDERS: Emergency Provider Nurse Practitioner Family; PCP Emergency Medicine
DX: J02.0 Streptococcal pharyngitis (principal); I10 Essential (primary) hypertension; E78.5 Hyperlipidemia, unspecified; E03.9 Hypothyroidism, unspecified; F41.9 Anxiety disorder, unspecified; Z79.899 Other long term (current) drug therapy
CPT/HCPCS: 87880; 99202; G0463

== ENCOUNTER 2020-07-07 12:35 | Emergency (ER) | payer BC, SELFPAY ==
[2020-07-07 12:39] VITALS: BP 148/68; PULSE 70; RESP 19; TEMP 36.7; O2SAT 96; BMI 27.4
[2020-07-07 12:58] VITALS: BP 148/68; PULSE 70; RESP 19; TEMP 36.7; O2SAT 96
[2020-07-07 13:00] LABS: UTC Strep Screen (Rapid) Positive (Negative)
--- NOTE | 2020-07-07 13:16 | HMH.EDUTC ---
[facility] [place] Disposition Clinical Impression: Strep throat Disposition: Home, Self-Care Condition on Discharge: Good Instructions: DI for Strep Throat Additional Instructions: Drink plenty of fluids. Take tylenol or ibuprofen for pain or fever. Take the medications as directed. Follow up with your regular doctor. GO TO THE ER FOR ANY WORSENING SYMPTOMS Prescriptions: Cefdinir [Omnicef 300mg Capsule] 300 mg PO BID #20 cap Transmission Status: [facility] predniSONE [Prednisone 20mg Tab] 20 mg PO BID 3 Days #6 tab Transmission Status: [facility] Referrals: Deshaun Almanza MD [Primary Care Provider] - Forms: Work/School Release Time of Disposition: 13:38 Medical Decision Making - Medical Records Medical records reviewed: No: I reviewed the patient's medical records. - Michele Inquiry Pt receiving controlled substance: No Vital Signs: 07/07/20 12:39 07/07/20 12:58 Temperature 98.1 F 98.1 F Temperature Source Oral Pulse Rate 70 Pulse Rate [Left] 70 Respiratory Rate 19 19 Blood Pressure 148/68 H Blood Pressure [Right Arm] 148/68 H Blood Pressure Mean [Right Arm] 94 02 Sat by Pulse Oximetry 96 - Lab Data Lab results reviewed: Yes: I reviewed the patient's lab results. Lab Results 07/07/20 12:59: Strep Scn Rapid Clinic Positive A [facility] [place] HPI - General Stated complaint: sore throat,cough,headache Time Seen by Provider: 07/07/20 13:16 Mode of Arrival: Ambulatory Source of Information: Patient Limitations: No Limitations Description of Symptoms (Recalled from Triage Doc. by RN): Pt c/o sore throat, cough, weakness and headache. Tested positive for strep last week HEENT Symptoms (Recalled from RN notes): Yes Resp Symptoms (Recalled from RN notes): Yes Skin Symptoms (Recalled from RN notes): No MS Symptoms (Recalled from RN notes): No Functional Status (Recalled from RN notes): wnl - History of Present Illness Provider Complaint: She states that she has felt bad for the past 3 days. She has a sore throat, cough and low grade fever. She had strep throat around 3 weeks ago. She states that she took azithromycin and got better then, but then she started back feeling bad 3 days ago. She thinks that she may have caught strep back. - Related Data Home Medications Medication Instructions Recorded Confirmed Rosuvastatin Calcium See Rx Instructions .ROUTE .COMPLEX 05/07/20 05/07/20 bisoproloL fumarate [Bisoprolol See Rx Instructions .ROUTE .COMPLEX 05/07/20 05/07/20 Fumarate] Previous Rx's Medication Instructions Recorded estradiol 2 mg tablet 2 mg PO DAILY #90 tab 09/26/19 alprazolam 0.5 mg tablet 0.5 mg PO TID #90 tab 04/13/20 Amoxicillin [Amoxicillin 500mg Tab] 500 mg PO TID 10 Days #30 tab 05/07/20 predniSONE [Deltasone 10mg tablet] 10 mg PO BID 3 Days #6 tab 05/07/20 levothyroxine 50 mcg tablet See Rx Instructions .ROUTE 06/11/20 .COMPLEX #90 tab Azithromycin [Zithromax 250mg 250 mg PO DIRECTED #6 tab 06/25/20 tab] Cefdinir [Omnicef 300mg Capsule] 300 mg PO BID #20 cap 07/07/20 predniSONE [Prednisone 20mg 20 mg PO BID 3 Days #6 tab 07/07/20 Tab] Allergies Allergy/AdvReac Type Severity Reaction Status Date / Time codeine Allergy Unknown Verified 07/07/20 12:58 adonis produc Allergy Anaphylaxis Uncoded 04/13/20 14:55 - Worker's Comp Is this a Worker's Comp case?: No [facility] History - Hepatitis A Screen Drug use history?: No High risk sexual behaviors?: No History of sexually transmitted infection?: No Currently employed?: No Childcare worker?: No Do you have indoor plumbing?: Yes Do you have electricity?: Yes Attestation statement:: This patient has been screened for Hepatitis A risk factors. I have reviewed the patient's past medical history: Yes Medical History: Reports:: Anxiety, Hyperlipidemia, Hypertension Other Medical History: Reports: Hypothyroidism, Thyroid Disease O
== END 2020-07-07 13:46 | disposition home or self-care (01) ==
PROVIDERS: Emergency Provider Nurse Practitioner Family; PCP Emergency Medicine
DX: J02.0 Streptococcal pharyngitis (principal); E78.5 Hyperlipidemia, unspecified; I10 Essential (primary) hypertension; F41.9 Anxiety disorder, unspecified; E03.9 Hypothyroidism, unspecified; Z79.899 Other long term (current) drug therapy
CPT/HCPCS: 87880; 99202; G0463; U0003

== ENCOUNTER → 2020-07-11 19:12 | Outpatient (CLI) | payer BC, SELFPAY ==
[2020-07-11 20:09] LABS: Amphetamine/Metha Screen,Urine Negative ng/ml (<1000)
[2020-07-11 20:13] LABS: Methadone Screen,Urine Negative ng/ml (<300)
[2020-07-11 20:29] LABS: Benzodiazepines Screen,Urine Positive ng/ml (<200)
[2020-07-11 20:30] LABS: Cannabinoid Screen,Urine Negative ng/ml (<50)
[2020-07-11 20:31] LABS: Phencyclidine Screen,Urine Negative ng/ml (<25)
[2020-07-11 20:37] LABS: Barbiturates Screen,Urine Negative ng/ml (<200)
[2020-07-11 21:17] LABS: Opiate Screen,Urine Negative ng/ml (<300)
[2020-07-11 21:25] LABS: Cocaine Screen,Urine Negative ng/ml (<300)
== END ==
PROVIDERS: Visit Provider Emergency Medicine
DX: Z79.899 Other long term (current) drug therapy (principal)
CPT/HCPCS: 80305

== ENCOUNTER 2020-08-02 20:40 | Outpatient (CLI) | payer BC, SELFPAY ==
[2020-08-02 20:49] VITALS: BMI 28.7
[2020-08-02 20:55] VITALS: BP 120/78; PULSE 72; RESP 16; TEMP 36.7; O2SAT 97
== END 2020-08-02 20:56 | disposition home or self-care (01) ==
LOC: INF 20:44
PROVIDERS: PCP Emergency Medicine; Visit Provider Emergency Medicine
DX: M79.662 Pain in left lower leg (principal); M79.89 Other specified soft tissue disorders
CPT/HCPCS: 96372

== ENCOUNTER → 2020-08-03 14:16 | Outpatient (CLI) | payer BC, SELFPAY ==
--- NOTE | 2020-08-03 14:19 | CA_ITS ---
APPROVED REPORT Left Lower Extremity Venous Study for DVT. Criminal Research Specialist: CT Indications Lower Extremity Pain: Lower Extremity Edema: left lower leg swelling, muscle spasms for 1 week in calf at night. Pop fossa edema and tenderness, Medications Pt was given lovenox shot in er last night. Vein Imaging CFV (L): compressive, spontaneous, phasic, augmentation SFJ (L): compressive, spontaneous, phasic, augmentation FEM (L): compressive, spontaneous, phasic, augmentation POP (L): compressive, spontaneous, phasic, augmentation DFV (L): compressive, spontaneous, phasic, augmentation PTV (L): compressive, spontaneous, phasic, augmentation GSV (L): compressive, spontaneous, phasic, augmentation SSV (L): compressive, spontaneous, phasic, augmentation Peroneals (L):compressive, spontaneous, phasic, augmentation GAS (L): compressive, spontaneous, phasic, augmentation Findings LLE negative for DVT/SVT. Vessels fully compressible. Conclusion LLE negative for DVT/SVT. Vessels fully compressible. Electronically signed by : Rich Rodriguez MD 08/03/2020 15:20:50
== END ==
LOC: RT 14:18
PROVIDERS: PCP Emergency Medicine; Visit Provider Emergency Medicine
DX: M79.662 Pain in left lower leg (principal); M79.89 Other specified soft tissue disorders
CPT/HCPCS: 93971

== ENCOUNTER 2020-08-15 11:25 | Emergency (ER) | payer BC, SELFPAY ==
[2020-08-15 11:25] VITALS: BP 152/86; PULSE 91; RESP 18; TEMP 36.7; O2SAT 96; BMI 26.6
[2020-08-15 11:53] VITALS: BP 152/86; PULSE 91; RESP 18; TEMP 36.7; O2SAT 96
[2020-08-15 11:55] LABS: UTC Strep Screen (Rapid) Positive (Negative)
--- NOTE | 2020-08-15 11:55 | HMH.EDUTC ---
[facility] [place] Impression: Strep throat Low back pain Qualifiers: Chronicity: unspecified Back pain laterality: midline Sciatica presence: unspecified whether sciatica present Qualified Code(s): M54.5 - Low back pain Disposition: Home, Self-Care Condition on Discharge: Good Additional Instructions: *Monitor Temp, Over the counter Motrin or Tylenol as directed/as needed Tylenol every 4 hours and Motrin every 6 hours (as long as your family doctor has told you that you can take it) for fever or pain. and straight to ER if unable to lower temp less than 101.0 after medication given *Warm salt water gargles may help to soothe the throat *Throat Lozenges *Warm fluids like tea with honey may help to soothe the throat *Sleep elevated *Humidifier/Vaporizer *If you did not take Penicillin shot or was unable to, start taking antibiotic immediately and make sure that you take it for the FULL length of time although you should start to feel better in 24-48 hours *change toothbrush and toothpaste 24-48 hours after starting to take antibiotics so you do not reinfect yourself Monitor Temp. Tylenol and/or Ibuprofen as needed. ER if fever is no less than 101 despite alternating Tylenol and Ibuprofen * Encourage fluids, water, Gatorade, powerade, pedialyte if infant/toddler/or child *Cold fluids, popsicles and ice cream may feel good on his throat Follow up IMMEDIATELY for new or worsening symptoms or no Noticeable improvement over the next 48-72 hours. 911 for difficulty breathing or swallowing *Etodolac hodan 6 hours with meal as needed for pain/inflammation *Remember you had a Toradol shot in the clinic today, which is similar to Etodolac do not start oral medication for the next 8-10 hours *Not additional anti-inflammatory like Ibuprofen motrin, aleve, advil with the above amount of Etodolac. You can still take Tylenol every 4 hours as needed if you need something else for pain *Ice 20 minutes every 2 hours for the first 48 hours after the initial injury followed by moist heat every 20 minutes 3-4 times a day to affected area *Muscle relaxer every 8 hours as needed for muscle spasms but remember, it WILL cause drowsiness You cannot take it and drive, operate machinery or care for small children. *Keep this area active, no movement leads to more stiffness, However take it easy and avoid heavy lifting pushing or pulling *Follow up with you family doctor if no improvement for further treatment Prescriptions: Etodolac 200 mg PO Q6HP PRN #20 cap PRN Reason: Moderate Pain [facility] Amoxicillin [Amoxicillin 500mg Cap] 500 mg PO TID #30 cap [facility]: [facility] Cyclobenzaprine HCl [Flexeril 10mg tablet] 10 mg PO TID PRN #15 tab PRN Reason: Muscle Spasm [facility] Referrals: Deshaun Almanza MD [Primary Care Provider] - As needed Forms: Work/School Release Time of Disposition: 12:05 Medical Decision Making - Michele Inquiry Pt receiving controlled substance: No Michele was queried for this patient: No Vital Signs: 08/15/20 11:25 08/15/20 11:53 Temperature 98.1 F 98.1 F Temperature Source Temporal Artery Scan Pulse Rate 91 H Pulse Rate [Left Brachial] 91 H Respiratory Rate 18 18 Blood Pressure 152/86 H Blood Pressure [Left Arm] 152/86 H Blood Pressure Mean [Left Arm] 108 Blood Pressure Source [Left Arm] Automatic Cuff Blood Pressure Position [Left Arm] Sitting 02 Sat by Pulse Oximetry 96 - Lab Data Lab results reviewed: Yes: I reviewed the patient's lab results. Lab Results 08/15/20 11:54: Strep Scn Rapid Clinic Positive A Orders (Tests/Meds): ED MEDICATIONS Discontinued Medications Generic Name Dose Route Start Last Admin Trade Name Freq PRN Reason Stop Dose Admin Ketorolac Tromethamine 60 mg 08/15/20 11:44 08/15/20 11:53 Ketorolac 60mg/2ml Vial IM 08/15/20 1
== END 2020-08-15 12:09 | disposition home or self-care (01) ==
PROVIDERS: Emergency Provider Nurse Practitioner; PCP Emergency Medicine
DX: J02.0 Streptococcal pharyngitis (principal); M62.830 Muscle spasm of back; I10 Essential (primary) hypertension; M54.5 Low back pain; E03.9 Hypothyroidism, unspecified
CPT/HCPCS: 87880; 96372; 99202; G0463

== ENCOUNTER 2020-10-13 10:31 | Emergency (ER) | payer BC, SELFPAY ==
[2020-10-13 10:42] VITALS: BP 141/86; PULSE 92; RESP 18; TEMP 37; O2SAT 95; BMI 28.3
--- NOTE | 2020-10-13 11:16 | HMH.EDUTC ---
[facility] [place] Clinical Impression: Viral syndrome Disposition: Home, Self-Care Condition on Discharge: Good Instructions: DI for Viral Syndrome, DI for COVID-19 (Suspected or Confirmed ), Preventing the Spread of Coronavirus Discharge Instructions Additional Instructions: Drink plenty of fluids. Take tylenol or ibuprofen for pain or fever. Take the medications as directed. Follow up with your regular doctor. GO TO THE ER FOR ANY WORSENING SYMPTOMS Quarantine until you know the results of your covid-19 test. If it is positive, the health department should call you and give you further instructions about your length of Quarantine and other things. Notify your school or workplace of your results and follow their instructions regarding return to work/school. The cough medication (promethazine dm) will make you drowsy, so don't drive or operate heavy machinery after taking it. Prescriptions: Promethazine/Dextromethorphan [Promethazine-Dm Syrup] 5 ml PO Q6HP PRN #240 syrup PRN Reason: Cough Transmission Status: Received by [email or web address] Ondansetron [Zofran 4mg ODT] 4 mg PO Q8HP PRN #20 tab.rapdis PRN Reason: Nausea Transmission Status: Received by [email or web address] Azithromycin [Z-Wilder 250mg Tab*] 250 mg PO UD DOSE PK #6 tab Transmission Status: Received by [email or web address] Referrals: Deshaun Almanza MD [Primary Care Provider] - Forms: Work/School Release Time of Disposition: 11:33 Medical Decision Making - Medical Records Medical records reviewed: No: I reviewed the patient's medical records. - Michele Inquiry Pt receiving controlled substance: No Vital Signs: 10/13/20 10:42 10/13/20 11:27 Temperature 98.6 F 98.5 F Temperature Source Oral Pulse Rate 86 Pulse Rate [Left] 92 H Respiratory Rate 18 19 Blood Pressure 148/75 H Blood Pressure [Right Arm] 141/86 H Blood Pressure Mean [Right Arm] 104 02 Sat by Pulse Oximetry 95 Oxygen Delivery Method Room Air - Lab Data Lab Results 10/13/20 10:48: Strep Scn Rapid Clinic Negative 10/13/20 20:51: Influenza Type A Ag Negative, Influenza Type B Ag Negative Orders (Tests/Meds): ORDERS Category Date Time Status Covid-19 Nasal PCR ([facility]) Routine Lab 10/13/20 10:49 Received Strep Screen Confirmation Stat Micro 10/13/20 10:48 Received [facility] UTC HPI - General Stated complaint: sore throat, weakness Time Seen by Provider: 10/13/20 10:55 Mode of Arrival: Ambulatory Source of Information: Patient Limitations: No Limitations Description of Symptoms (Recalled from Triage Doc. by RN): pt c/o a HAMILTON, sore throat and body aches. HEENT Symptoms (Recalled from RN notes): Yes (sore throat and HAMILTON) Resp Symptoms (Recalled from RN notes): No Skin Symptoms (Recalled from RN notes): No MS Symptoms (Recalled from RN notes): No Functional Status (Recalled from RN notes): body aches - History of Present Illness Provider Complaint: She states that since last night she has had body aches, feels very bad, cough and sore throat. She has been vaccinated against covid. - Related Data Previous Rx's Medication Instructions Recorded levothyroxine 50 mcg tablet See Rx Instructions .ROUTE 06/11/20 .COMPLEX #90 tab Cyclobenzaprine HCl [Flexeril 10mg 10 mg PO TID PRN #15 tab 08/15/20 tablet] Etodolac 200 mg PO Q6HP PRN #20 cap 08/15/20 rosuvastatin 10 mg tablet See Rx Instructions .ROUTE 09/11/20 .COMPLEX #90 tablet estradiol 2 mg tablet 2 mg PO DAILY #90 tab 09/17/20 alprazolam 0.5 mg tablet 0.5 mg PO TID #90 tab 10/03/20 bisoprolol fumarate 5 mg tablet See Rx Instructions .ROUTE 10/08/20 .COMPLEX #90 tablet Azithromycin [Z-Wilder 250mg Tab*] 250 mg PO UD DOSE PK #6 tab 10/13/20 Ondansetron [Zofran 4mg ODT] 4 mg PO Q8HP PRN #20 tab.rapdis 10/13/20 Promethazine/Dextromethorphan 5 ml PO Q6HP PRN #240 syrup 10/13/20 [Promethazine-Dm Syrup] Allergies Allergy/AdvReac Type Severity Reaction Status Date /
[2020-10-13 11:27] VITALS: BP 148/75; PULSE 86; RESP 19; TEMP 36.9
[2020-10-13 21:12] LABS: UTC Strep Screen (Rapid) Negative (Negative)
[2020-10-13 21:13] LABS: UTC Influenza A Antigen Negative (Negative); UTC Influenza B Antigen Negative (Negative)
== END 2020-10-13 11:52 | disposition home or self-care (01) ==
LOC: ER 10:33 → UTC 10:35
PROVIDERS: Emergency Provider Nurse Practitioner Family; PCP Emergency Medicine
DX: B34.9 Viral infection, unspecified (principal); J02.9 Acute pharyngitis, unspecified; E03.9 Hypothyroidism, unspecified; I10 Essential (primary) hypertension; E78.5 Hyperlipidemia, unspecified; Z79.899 Other long term (current) drug therapy
CPT/HCPCS: 87804; 87880; 99203; G0463; U0003

== ENCOUNTER → 2020-12-18 14:02 | Outpatient (CLI) | payer OTHER, BC, SELFPAY | PROVIDERS: Visit Provider Physician Assistant | DX: Z20.822 Contact with and (suspected) exposure to COVID-19 (principal); R69 Illness, unspecified | CPT/HCPCS: C9803; U0003; U0005 ==

== ENCOUNTER → 2021-01-21 18:44 | Outpatient (CLI) | payer OTHER, SELFPAY ==
[2021-01-21 19:59] LABS: Amphetamine/Metha Screen,Urine Negative ng/ml (<1000)
[2021-01-21 20:00] LABS: Barbiturates Screen,Urine Negative ng/ml (<200)
[2021-01-21 20:01] LABS: Benzodiazepines Screen,Urine Positive ng/ml (<200); Cannabinoid Screen,Urine Negative ng/ml (<50)
[2021-01-21 20:02] LABS: Cocaine Screen,Urine Negative ng/ml (<300)
[2021-01-21 20:03] LABS: Methadone Screen,Urine Negative ng/ml (<300); Opiate Screen,Urine Negative ng/ml (<300)
[2021-01-21 20:04] LABS: Phencyclidine Screen,Urine Negative ng/ml (<25)
== END ==
PROVIDERS: Visit Provider Emergency Medicine
DX: Z79.899 Other long term (current) drug therapy (principal)
CPT/HCPCS: 80305

== ENCOUNTER 2021-02-26 15:29 | Emergency (ER) | payer OTHER, SELFPAY ==
[2021-02-26 17:08] LABS: UTC Strep Screen (Rapid) Positive (Negative)
[2021-02-26 17:09] VITALS: BP 146/82; PULSE 72; RESP 18; TEMP 36.6; O2SAT 97; BMI 25.4
--- NOTE | 2021-02-26 17:13 | HMH.EDUTC ---
[facility] – [place] Disposition Clinical Impression: Strep throat Disposition: Home, Self-Care Condition on Discharge: Good Instructions: DI for Strep Throat, Strep Throat, Amoxicillin Additional Instructions: *Monitor Temp, Over the counter Motrin or Tylenol as directed/as needed Tylenol every 4 hours and Motrin every 6 hours (as long as your family doctor has told you that you can take it) for fever or pain. and straight to ER if unable to lower temp less than 101.0 after medication given *Warm salt water gargles may help to soothe the throat *Throat Lozenges *Warm fluids like tea with honey may help to soothe the throat *Sleep elevated *Humidifier/Vaporizer *If you did not take Penicillin shot or was unable to, start taking antibiotic immediately and make sure that you take it for the FULL length of time although you should start to feel better in 24-48 hours *change toothbrush and toothpaste 24-48 hours after starting to take antibiotics so you do not reinfect yourself Monitor Temp. Tylenol and/or Ibuprofen as needed. ER if fever is no less than 101 despite alternating Tylenol and Ibuprofen * Encourage fluids, water, Gatorade, powerade, pedialyte if /toddler/or child *Cold fluids, popsicles and ice cream may feel good on his throat Follow up IMMEDIATELY for new or worsening symptoms or no Noticeable improvement over the next 48-72 hours. 911 for difficulty breathing or swallowing Prescriptions: Amoxicillin [Amoxicillin 500mg Cap] 500 mg PO TID #30 cap Transmission Status: Pending to [facility] Referrals: Deshaun Almanza MD [Primary Care Provider] - As needed Time of Disposition: 17:18 Medical Decision Making - Michele Inquiry Pt receiving controlled substance: No Michele was queried for this patient: No Vital Signs: 02/26/21 17:09 Temperature 97.8 F Temperature Source Oral Pulse Rate [Left Radial] 72 Respiratory Rate 18 Blood Pressure [Left Arm] 146/82 H Blood Pressure Mean [Left Arm] 103 Blood Pressure Source [Left Arm] Automatic Cuff Blood Pressure Position [Left Arm] Sitting 02 Sat by Pulse Oximetry 97 Oxygen Delivery Method Room Air - Lab Data Lab results reviewed: Yes: I reviewed the patient's lab results. Lab Results 02/26/21 17:01: Strep Scn Rapid Clinic Positive A Medical Decision Narrative: Patient state that she has taken amoxicillin before without reaction or complications [facility] [place] HPI - General Stated complaint: possible strep, sore throat, headache, earache Time Seen by Provider: 02/26/21 17:13 Mode of Arrival: Ambulatory Source of Information: Patient Limitations: No Limitations Description of Symptoms (Recalled from Triage Doc. by RN): C/O sore throat, HAMILTON, earache, fatigue x2 days HEENT Symptoms (Recalled from RN notes): Yes (HAMILTON, sore throat, earache) Resp Symptoms (Recalled from RN notes): No Skin Symptoms (Recalled from RN notes): No MS Symptoms (Recalled from RN notes): No Functional Status (Recalled from RN notes): n/a - History of Present Illness Provider Complaint: Patient state that she feels like she does when she gets strep throat States that she has been having sore throat, fever, pain/pressure in her ears and headache States that symptoms started 2-3 days ago and have continued to get worse today she came in to get checked - Related Data Previous Rx's Medication Instructions Recorded Cyclobenzaprine HCl [Flexeril 10mg 10 mg PO TID PRN #15 tab 08/15/20 tablet] rosuvastatin 10 mg tablet See Rx Instructions .ROUTE 09/11/20 .COMPLEX #90 tablet estradiol 2 mg tablet 2 mg PO DAILY #90 tab 09/17/20 bisoprolol fumarate 5 mg tablet See Rx Instructions .ROUTE 10/08/20 .COMPLEX #90 tablet levothyroxine 50 mcg tablet See Rx Instructions .ROUTE 11/10/20 .COMPLEX #90 tab alprazolam 0.5 mg tablet 0.5 mg PO TID #90 tab 01/21/21 Amoxicillin [Amoxicillin 500mg 500 mg PO TID #30 cap 02/26/21 Cap] Allergies Allergy/AdvReac Type Severity Re
[2021-02-26 17:30] VITALS: BP 146/82; PULSE 72; RESP 18; TEMP 36.6; O2SAT 97
== END 2021-02-26 17:30 | disposition home or self-care (01) ==
PROVIDERS: Emergency Provider Nurse Practitioner; PCP Emergency Medicine
DX: J02.0 Streptococcal pharyngitis (principal); I10 Essential (primary) hypertension; E78.5 Hyperlipidemia, unspecified; E03.9 Hypothyroidism, unspecified
CPT/HCPCS: 87880; 99202; G0463

== ENCOUNTER → 2021-03-08 15:16 | Outpatient (CLI) | payer OTHER, SELFPAY | PROVIDERS: Visit Provider Nurse Practitioner | DX: Z20.822 Contact with and (suspected) exposure to COVID-19 (principal) | CPT/HCPCS: C9803; U0003; U0005 ==

== ENCOUNTER 2021-05-30 12:20 | Emergency (ER) | payer OTHER, SELFPAY ==
[2021-05-30 12:39] VITALS: BP 135/72; PULSE 68; RESP 16; TEMP 36.9; O2SAT 98; BMI 30.2
--- NOTE | 2021-05-30 12:58 | HMH.EDUTC ---
[facility] [place]: Strep throat Disposition: Home, Self-Care Condition on Discharge: Good Instructions: DI for Strep Throat Additional Instructions: Start antibiotics today be sure to take it as ordered with the full length of time although you should start feeling better in 24-48 hours. Change toothbrush and toothpaste 24-48 hours after starting antibiotics Tylenol or Motrin as needed for fever or pain Encourage fluids, water, Gatorade, Powerade, try cold fluids, popsicles, ice cream will make it feel better You are contagious for 24 hours. Avoid kissing anyone, no eating or drinking after anyone. You are contagious. Follow-up the ER for new or worsening symptoms or no noticeable improvement over the next 24-48 hours. Follow-up with PCP this week. Prescriptions: Azithromycin [Zithromax 250mg tab] 250 mg PO DIRECTED #6 tab Transmission Status: Pending to [facility] Referrals: Deshaun Almanza MD [Primary Care Provider] - Forms: Work/School Release Time of Disposition: 13:03 Medical Decision Making - Michele Inquiry Pt receiving controlled substance: No Vital Signs: 05/30/21 12:39 Temperature 98.5 F Temperature Source Oral Pulse Rate [Left] 68 Respiratory Rate 16 Blood Pressure [Right Arm] 135/72 Blood Pressure Mean [Right Arm] 93 02 Sat by Pulse Oximetry 98 Orders (Tests/Meds): ORDERS Category Date Time Status Rapid Strep Scrn Group A [Strep Scrn Group A (Rapid)] Lab 05/30/21 12:39 Received Stat [facility] [place] - General Chief complaint: [facility] Stated complaint: sore throatm Time Seen by Provider: 05/30/21 12:59 Mode of Arrival: Ambulatory Source of Information: Patient Limitations: No Limitations Description of Symptoms (Recalled from Triage Doc. by RN): pt c/o a sore throat, HAMILTON and body aches since yesterday. HEENT Symptoms (Recalled from RN notes): Yes Resp Symptoms (Recalled from RN notes): No Skin Symptoms (Recalled from RN notes): No MS Symptoms (Recalled from RN notes): No Functional Status (Recalled from RN notes): wnl - History of Present Illness Provider Complaint: 50 yr old female presents for c/o a sore throat, HAMILTON and body aches since yesterday. pt states it feels like strep, works at a daycare - Related Data Previous Rx's Medication Instructions Recorded Cyclobenzaprine HCl [Flexeril 10mg 10 mg PO TID PRN #15 tab 08/15/20 tablet] rosuvastatin 10 mg tablet See Rx Instructions .ROUTE 09/11/20 .COMPLEX #90 tablet estradiol 2 mg tablet 2 mg PO DAILY #90 tab 09/17/20 levothyroxine 50 mcg tablet See Rx Instructions .ROUTE 03/12/21 .COMPLEX #90 tab bisoprolol fumarate 5 mg tablet See Rx Instructions .ROUTE 04/08/21 .COMPLEX #90 tab acyclovir 400 mg tablet 400 mg PO TID #21 tab 04/19/21 alprazolam 0.5 mg tablet 0.5 mg PO TID #90 tab 04/19/21 nystatin 100,000 unit/mL oral 30 ml PO TID #473 ml 04/19/21 suspension Azithromycin [Zithromax 250mg 250 mg PO DIRECTED #6 tab 05/30/21 tab] Allergies Allergy/AdvReac Type Severity Reaction Status Date / Time codeine Allergy Unknown Verified 04/19/21 15:00 adonis produc Allergy Anaphylaxis Uncoded 04/19/21 15:00 - Worker's Comp Is this a Worker's Comp case?: No [facility] History - Hepatitis A Screen Drug use history?: No High risk sexual behaviors?: No History of sexually transmitted infection?: No Currently employed?: No Childcare worker?: No Do you have indoor plumbing?: Yes Do you have electricity?: Yes Attestation statement:: This patient has been screened for Hepatitis A risk factors. I have reviewed the patient's past medical history: Yes Medical History: Reports:: Anxiety, Hyperlipidemia, Hypertension Other Medical History: Reports: Hypothyroidism, Thyroid Disease Other Surgeries: Yes: No Previous Surgery, Cardiac Catheterization, , Diagnostic Lap, Tubal Ligation Amputation: No Fractures: No Comment: 1996- PRIMARY .
[2021-05-30 13:03] LABS: Strep Scrn Group A (Rapid) Negative (Negative)
[2021-05-30 13:09] VITALS: BP 135/72; PULSE 68; RESP 16; TEMP 36.9
== END 2021-05-30 13:10 | disposition home or self-care (01) ==
PROVIDERS: Emergency Provider Nurse Practitioner Family; PCP Emergency Medicine
DX: J02.9 Acute pharyngitis, unspecified (principal); R07.9 Chest pain, unspecified; R00.2 Palpitations; R51.9 Headache, unspecified; M79.10 Myalgia, unspecified site; I10 Essential (primary) hypertension; E78.5 Hyperlipidemia, unspecified; E03.9 Hypothyroidism, unspecified; F41.9 Anxiety disorder, unspecified; Z88.5 Allergy status to narcotic agent; Z88.8 Allergy status to other drugs, medicaments and biological substances; Z79.890 Hormone replacement therapy
CPT/HCPCS: 87430; 99213; 99283; G0463

== ENCOUNTER → 2021-07-18 06:36 | Outpatient (CLI) | payer OTHER, SELFPAY ==
[2021-07-17 17:50] LABS: Alanine Aminotransferase 21 U/L (12-78); Albumin Level 4.2 g/dl (3.5-5.0); Albumin/Globulin Ratio 1.4 (1.1-1.8); Alkaline Phosphatase 52 U/L (38-126); Anion Gap 12.1 mEq/L (5-15); Aspartate Amino Transferase 34 U/L (14-36); Blood Urea Nitrogen 16 mg/dl (7-17); Calcium 9.8 mg/dl (8.4-10.2); Carbon Dioxide 25 mmol/L (22.0-30.0); Chloride 103 mmol/L (98-107); Chol/HDL Ratio 2.7 (1-3.5); Cholesterol 220 mg/dl (140-200); Estimated Glomerular Filt Rate 76 ml/min (>60); GFR (African American) 92 ML/MIN (>60); Glucose 92 mg/dl (74-100); HDL Cholesterol 82 mg/dl (40-60); Potassium 4.1 mmoL/L (3.5-5.1); Sodium 136 mmol/L (136-145); Total Protein,Serum 7.2 g/dl (6.3-8.2)
[2021-07-17 17:52] LABS: Bilirubin,Total < 0.1 mg/dl (0.2-1.3)
[2021-07-17 18:01] LABS: Direct LDL Cholesterol 76.12 mg/dL (100-129)
[2021-07-17 18:06] LABS: T4 (Thyroxine) 10.8 ug/dl (5.53-11.0)
[2021-07-17 18:07] LABS: 25-OH Vitamin D, Total 24.2 ng/mL (30-100)
[2021-07-17 18:15] LABS: Basophils # 0.1 K/mm3 (0-0.2); Basophils % 0.8 % (0.1-2.0); Eosinophils # 0.3 K/mm3 (0.0-0.4); Eosinophils % 3.1 % (0.1-12.0); Hematocrit 42.6 % (37.0-47.0); Hemoglobin 14.3 g/dL (12.2-16.2); Lymphocytes # 2.6 K/mm3 (0.7-4.5); Lymphocytes % 24.7 % (10-50); Mean Corpuscular HGB Conc 33.6 g/dL (31.8-35.4); Mean Corpuscular Hemoglobin 31.6 pg (27.0-31.2); Mean Corpuscular Volume 94.1 fl (81-99); Mean Platelet Volume 8.3 fl (7.4-10.4); Monocytes # 0.5 K/mm3 (0.1-1.0); Monocytes % 4.9 % (1.7-9.3); Neutrophils # 7.1 K/mm3 (1.8-7.8); Neutrophils % 66.5 % (37.0-80.0); Platelet Count 406 K/mm3 (142-424); Red Blood Count 4.53 M/mm3 (4.20-5.40); Red Cell Distribution Width 12.7 % (11.5-17.5); Triglycerides 578 mg/dl (30-150); White Blood Count 10.7 K/mm3 (4.8-10.8)
[2021-07-17 18:20] LABS: Thyroid Stimulating Hormone 2.65 uIU/mL (0.465-4.68)
[2021-07-17 18:39] LABS: Vitamin B12 963 pg/mL (239-931)
[2021-07-17 18:42] LABS: Amphetamine/Metha Screen,Urine Negative ng/ml (<1000)
[2021-07-17 18:43] LABS: Barbiturates Screen,Urine Negative ng/ml (<200)
[2021-07-17 18:44] LABS: Benzodiazepines Screen,Urine Positive ng/ml (<200); Cannabinoid Screen,Urine Negative ng/ml (<50)
[2021-07-17 18:45] LABS: Cocaine Screen,Urine Negative ng/ml (<300); Methadone Screen,Urine Negative ng/ml (<300)
[2021-07-17 18:46] LABS: Opiate Screen,Urine Negative ng/ml (<300)
[2021-07-17 18:47] LABS: Phencyclidine Screen,Urine Negative ng/ml (<25)
== END ==
LOC: LAB 06:37
PROVIDERS: PCP Emergency Medicine; Visit Provider Emergency Medicine
DX: Z79.899 Other long term (current) drug therapy (principal); F41.9 Anxiety disorder, unspecified; R53.83 Other fatigue; E55.9 Vitamin D deficiency, unspecified
CPT/HCPCS: 80053; 80061; 80305; 82306; 82607; 84436; 84443; 85025

== ENCOUNTER 2021-08-02 09:37 | Emergency (ER) | payer OTHER, SELFPAY ==
--- NOTE | 2021-08-02 09:57 | HMH.EDUTC ---
[facility] – [place] Disposition Clinical Impression: Pharyngitis Qualifiers: Pharyngitis/tonsillitis etiology: unspecified etiology Qualified Code(s): J02.9 - Acute pharyngitis, unspecified Disposition: Home, Self-Care Condition on Discharge: Good Instructions: DI for Strep Throat Additional Instructions: Drink plenty of fluids. Take tylenol or ibuprofen for pain or fever. Take the medications as directed. Follow up with your regular doctor. GO TO THE ER FOR ANY WORSENING SYMPTOMS Prescriptions: Amoxicillin [Amoxicillin 500mg Tab] 500 mg PO TID 10 Days #30 tab Transmission Status: Received by [facility] predniSONE [Deltasone 10mg tablet] 10 mg PO BID 3 Days #6 tab Transmission Status: Received by [facility] Referrals: Deshaun Almanza MD [Primary Care Provider] - Forms: Work/School Release Time of Disposition: 10:26 Medical Decision Making - Medical Records Medical records reviewed: No: I reviewed the patient's medical records. - Michele Inquiry Pt receiving controlled substance: No Vital Signs: 08/02/21 10:00 08/02/21 10:30 Temperature 98.2 F 98.2 F Temperature Source Oral Pulse Rate 65 Pulse Rate [Left Radial] 65 Respiratory Rate 17 17 Blood Pressure 119/67 Blood Pressure [Right Arm] 119/67 Blood Pressure Mean [Right Arm] 84 02 Sat by Pulse Oximetry 100 - Lab Data Lab results reviewed: Yes: I reviewed the patient's lab results. Lab Results 08/02/21 09:58: Group A Strep Rapid Negative 08/02/21 10:23: Chlamy pneumoniae PCR Not detected, Adenovirus (PCR) Not detected, B. pertussis DNA (PCR) Not detected, Coronavirus OC43 (PCR) Not detected, Coronavirus HKU1 (PCR) Not detected, Coronavirus 229E (PCR) Not detected, SARS-CoV-2 (PCR) Not detected, Coronavirus NL63 (PCR) Not detected, Human Metapneumovir PCR Not detected, Influenza A (H1) PCR Not detected, Influ A (H1N1/09) PCR Not detected, Influenza A (H3) PCR Not detected, Influenza Type A (PCR) Not detected, Influenza Type B (PCR) Not detected, M. pneumoniae (PCR) Not detected, Parainfluenza 1 (PCR) Not detected, Parainfluenza 2 (PCR) Not detected, Parainfluenza 3 (PCR) Not detected, Parainfluenza 4 (PCR) Not detected, RSV (PCR) Not detected, Entero/Rhino (PCR) Not detected [facility] – [place] HPI - General Stated complaint: sore throat, headache Time Seen by Provider: 08/02/21 09:57 - History of Present Illness Provider Complaint: She states that for the past 3 days she has had sore throat, malaise, and fatigue. 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 - Related Data Previous Rx's Medication Instructions Recorded Cyclobenzaprine HCl [Flexeril 10mg 10 mg PO TID PRN #15 tab 08/15/20 tablet] estradiol 2 mg tablet 2 mg PO DAILY #90 tab 09/17/20 nystatin 100,000 unit/mL oral 30 ml PO TID #473 ml 04/19/21 suspension alprazolam 0.5 mg tablet 0.5 mg PO TID #90 tab 07/17/21 bisoprolol fumarate 5 mg tablet See Rx Instructions .ROUTE 07/17/21 .COMPLEX #90 tab levothyroxine 50 mcg tablet See Rx Instructions .ROUTE 07/17/21 .COMPLEX #90 tab rosuvastatin 10 mg tablet See Rx Instructions .ROUTE 07/17/21 .COMPLEX #90 tablet ergocalciferol (vitamin D2) 1,250 1,250 mcg PO WEEKLY #13 cap 07/25/21 mcg (50,000 unit) capsule rosuvastatin 20 mg tablet 20 mg PO DAILY #90 tab 07/25/21 Amoxicillin [Amoxicillin 500mg Tab] 500 mg PO TID 10 Days #30 tab 08/02/21 predniSONE [Deltasone 10mg tablet] 10 mg PO BID 3 Days #6 tab 08/02/21 Allergies Allergy/AdvReac Type Severity Reaction Status Date / Time codeine Allergy Unknown Verified 08/02/21 10:03 adonis produc Allergy Anaphylaxis Uncoded 07/17/21 14:53 [facility] History - Hepatitis A Screen Attestation statement:: This patient has been screened for Hepatitis A risk factors. I have reviewed the patient's past medical history: Yes Medical History: Reports:: Anxiety, Hyperlipidemia, Hypertension Other Medical History: Rep
[2021-08-02 10:00] VITALS: BP 119/67; PULSE 65; RESP 17; TEMP 36.8; O2SAT 100; BMI 30.2
[2021-08-02 10:21] LABS: Strep Scrn Group A (Rapid) Negative (Negative)
[2021-08-02 10:30] VITALS: BP 119/67; PULSE 65; RESP 17; TEMP 36.8
[2021-08-02 10:32] LABS: Adenovirus,PCR Not Detected (NotDetected); Bordetella Pertussis Not Detected (NotDetected); Chlamydophila Pneumoniae, PCR Not Detected (NotDetected); Coronavirus 19, PCR Not Detected (NotDetected); Coronavirus 229E Not Detected (NotDetected); Coronavirus NL63 Not Detected (NotDetected); Coronavirus OC43 Not Detected (NotDetected); Coronovirus HKU1,PCR Not Detected (NotDetected); Human Metapneumovirus Not Detected (NotDetected); Influenza A, PCR Not Detected (NotDetected); Influenza AH1, 2009 Not Detected (NotDetected); Influenza AH1, PCR Not Detected (NotDetected); Influenza AH3,PCR Not Detected (NotDetected); Influenza B, PCR Not Detected (NotDetected); Mycoplasma Pneumoniae, PCR Not Detected (NotDetected); Parainfluenza 1, PCR Not Detected (NotDetected); Parainfluenza 2, PCR Not Detected (NotDetected); Parainfluenza 3, PCR Not Detected (NotDetected); Parainfluenza 4, PCR Not Detected (NotDetected); Respiratory Syncytial Virus Not Detected (NotDetected); Rhinovirus/Enterovirus Not Detected (NotDetected)
== END 2021-08-02 10:32 | disposition home or self-care (01) ==
PROVIDERS: Emergency Provider Nurse Practitioner Family; PCP Emergency Medicine
DX: J02.9 Acute pharyngitis, unspecified (principal); R51.9 Headache, unspecified; R53.81 Other malaise; Z20.822 Contact with and (suspected) exposure to COVID-19; I10 Essential (primary) hypertension; E78.5 Hyperlipidemia, unspecified; E03.9 Hypothyroidism, unspecified; F41.9 Anxiety disorder, unspecified; Z79.52 Long term (current) use of systemic steroids; Z79.899 Other long term (current) drug therapy; Z88.5 Allergy status to narcotic agent; Z82.49 Family history of ischemic heart disease and other diseases of the circulatory system; Z83.3 Family history of diabetes mellitus
CPT/HCPCS: 87430; 87581; 87632; 87798; 99213; C9803; G0463; U0003; U0005

== ENCOUNTER 2021-11-22 09:27 | Emergency (ER) | payer OTHER, SELFPAY ==
[2021-11-22 09:50] VITALS: BP 149/77; PULSE 62; RESP 18; TEMP 37.2; O2SAT 97; BMI 29.6
--- NOTE | 2021-11-22 10:03 | EXP.UTC ---
Discharge Plan Disposition Patient Disposition: Home, Self-Care Condition: Good Prescriptions Prescriptions: New azithromycin [Zithromax] 250 mg tablet 250 mg PO UD DOSE PK Qty: 6 0RF Rx Instructions: Take two (2) tablets today, then one (1) tablet days #2 thru #5 benzonatate [benzonatate] 100 mg capsule 100 mg PO TIDP PRN (Reason: Cough) Qty: 30 0RF methylprednisolone 4 mg Tablets,Dose Pack 4 mg PO DIRECTED Qty: 21 0RF No Action bisoprolol fumarate 5 mg tablet See Rx Instructions .ROUTE .COMPLEX Qty: 90 0RF Dose Instruction: TAKE 1/2 (ONE-HALF) TABLET BY MOUTH ONCE DAILY FOR HIGH BLOOD PRESSURE Rx Instructions: TAKE 1/2 (ONE-HALF) TABLET BY MOUTH ONCE DAILY FOR HIGH BLOOD PRESSURE levothyroxine 50 mcg tablet See Rx Instructions .ROUTE .COMPLEX Qty: 90 0RF Dose Instruction: Take 1 tablet by mouth once daily Rx Instructions: Take 1 tablet by mouth once daily cyclobenzaprine 10 mg tablet 10 mg PO TID PRN (Reason: Muscle Spasm) Qty: 30 0RF estradiol 2 mg tablet 2 mg PO DAILY Qty: 90 3RF metformin 500 mg tablet 500 mg PO BID Qty: 60 0RF alprazolam 0.5 mg tablet 0.5 mg PO TID Qty: 90 2RF rosuvastatin 20 mg tablet 20 mg PO DAILY Qty: 90 3RF ergocalciferol (vitamin D2) 1,250 mcg (50,000 unit) capsule 1,250 mcg PO WEEKLY Qty: 13 3RF bupropion HCl 75 mg tablet 75 mg PO BID Qty: 60 1RF Referrals Follow up/Referrals: Deshaun Almanza MD [Primary Care Provider] - See instructions Activity Restrictions/Add. Instructions Additional Instructions/Restrictions: Drink plenty of fluids. Take tylenol or ibuprofen for pain or fever. Take the medications as directed. Follow up with your regular doctor. GO TO THE ER FOR ANY WORSENING SYMPTOMS Quarantine until you know the results of your covid-19 test. Notify your school or workplace of your results and follow their instructions regarding return to work/school. Clinical Impressions Clinical Impression: Pharyngitis, Sinusitis Stand Alone Forms Stand Alone Forms: Work/School Release Instructions Patient Instructions: DI for Pharyngitis/Tonsillopharyngitis -- Adult, DI for Sinusitis Discharge ED Provider: Rich William [facility] [place] General Stated complaint: sore throat headache Mode of Arrival: Ambulatory Source of Information: Patient Limitations: No Limitations Time Seen by Provider: 11/22/21 10:03 HEENT Symptoms (Recalled from RN notes): Yes Resp Symptoms (Recalled from RN notes): Yes Skin Symptoms (Recalled from RN notes): No MS Symptoms (Recalled from RN notes): No Functional Status (Recalled from RN notes): n/a History of Present Illness Provider Complaint: pt comes in with c/o cough, sore throat, headache, bilateral ear ache. symptoms ongoing for 3 days. home covid test was negative. Related Data Previous Rx's Medication Instructions Recorded bisoprolol fumarate 5 mg tablet See Rx Instructions .Route 07/17/21 .COMPLEX #90 tabs levothyroxine 50 mcg tablet See Rx Instructions .Route 07/17/21 .COMPLEX #90 tabs ergocalciferol (vitamin D2) 1,250 1,250 mcg PO WEEKLY #13 caps 07/25/21 mcg (50,000 unit) capsule rosuvastatin 20 mg tablet 20 mg PO DAILY elevated 07/25/21 cholesterol #90 tabs cyclobenzaprine 10 mg tablet 10 mg PO TID PRN Muscle Spasm #30 09/17/21 tabs estradiol 2 mg tablet 2 mg PO DAILY HORMONE REPLACEMENT 09/24/21 #90 tabs alprazolam 0.5 mg tablet 0.5 mg PO TID Anxiety #90 tabs 10/14/21 metformin 500 mg tablet 500 mg PO BID #60 tabs 10/14/21 bupropion HCl 75 mg tablet 75 mg PO BID #60 tabs 11/21/21 azithromycin 250 mg tablet 250 mg PO UD DOSE PK #6 tabs 11/22/21 (Zithromax) benzonatate 100 mg capsule 100 mg PO TIDP PRN Cough #30 caps 11/22/21 methylprednisolone 4 mg tablets in 4 mg PO DIRECTED #21 tabs 11/22/21 a dose pack Allergies Allergy/AdvReac Type Severity Reaction Status Date / Time codeine Allergy Unkn
[2021-11-22 10:07] LABS: UTC Strep Screen (Rapid) Negative (Negative)
[2021-11-22 10:49] VITALS: BP 149/77; PULSE 62; RESP 18; TEMP 37.2
[2021-11-22 10:49] LABS: Adenovirus,PCR Not Detected (NotDetected); Bordetella Pertussis Not Detected (NotDetected); Chlamydophila Pneumoniae, PCR Not Detected (NotDetected); Coronavirus 19, PCR Not Detected (NotDetected); Coronavirus 229E Not Detected (NotDetected); Coronavirus NL63 Not Detected (NotDetected); Coronavirus OC43 Not Detected (NotDetected); Coronovirus HKU1,PCR Not Detected (NotDetected); Human Metapneumovirus Not Detected (NotDetected); Influenza A, PCR Not Detected (NotDetected); Influenza AH1, 2009 Not Detected (NotDetected); Influenza AH1, PCR Not Detected (NotDetected); Influenza AH3,PCR Not Detected (NotDetected); Influenza B, PCR Not Detected (NotDetected); Mycoplasma Pneumoniae, PCR Not Detected (NotDetected); Parainfluenza 1, PCR Not Detected (NotDetected); Parainfluenza 2, PCR Not Detected (NotDetected); Parainfluenza 3, PCR Not Detected (NotDetected); Parainfluenza 4, PCR Not Detected (NotDetected); Respiratory Syncytial Virus Not Detected (NotDetected); Rhinovirus/Enterovirus Not Detected (NotDetected)
== END 2021-11-22 10:50 | disposition home or self-care (01) ==
LOC: ER 09:29 → UTC 09:31
PROVIDERS: Emergency Provider Nurse Practitioner Family; PCP Emergency Medicine
DX: J02.9 Acute pharyngitis, unspecified (principal); J32.9 Chronic sinusitis, unspecified
CPT/HCPCS: 87581; 87632; 87798; 87880; 99212; C9803; G0463; U0003; U0005

== ENCOUNTER 2022-02-02 15:30 | Emergency (ER) | payer OTHER, SELFPAY ==
[2022-02-02 15:49] VITALS: BP 148/90; PULSE 76; RESP 18; TEMP 36.7; O2SAT 97; BMI 30.2
[2022-02-02 16:00] LABS: UTC Influenza A Antigen Negative (Negative); UTC Influenza B Antigen Negative (Negative)
--- NOTE | 2022-02-02 16:22 | EXP.UTC ---
Discharge Plan Disposition Patient Disposition: Home, Self-Care Condition: Good Prescriptions Prescriptions: No Action bisoprolol fumarate 5 mg tablet See Rx Instructions .ROUTE .COMPLEX Qty: 90 0RF Dose Instruction: TAKE 1/2 (ONE-HALF) TABLET BY MOUTH ONCE DAILY FOR HIGH BLOOD PRESSURE Rx Instructions: TAKE 1/2 (ONE-HALF) TABLET BY MOUTH ONCE DAILY FOR HIGH BLOOD PRESSURE cyclobenzaprine 10 mg tablet 10 mg PO TID PRN (Reason: Muscle Spasm) Qty: 30 0RF estradiol 2 mg tablet 2 mg PO DAILY Qty: 90 3RF alprazolam 0.5 mg tablet 0.5 mg PO TID Qty: 90 2RF rosuvastatin 20 mg tablet 20 mg PO DAILY Qty: 90 3RF ergocalciferol (vitamin D2) 1,250 mcg (50,000 unit) capsule 1,250 mcg PO WEEKLY Qty: 13 3RF levothyroxine [Euthyrox] 50 mcg tablet See Rx Instructions .ROUTE .COMPLEX Qty: 90 0RF Dose Instruction: Take 1 tablet by mouth once daily Rx Instructions: Take 1 tablet by mouth once daily bupropion HCl 75 mg tablet See Rx Instructions .ROUTE .COMPLEX Qty: 60 0RF Dose Instruction: Take 1 tablet by mouth twice daily Rx Instructions: Take 1 tablet by mouth twice daily benzonatate [benzonatate] 100 mg capsule 100 mg PO TIDP PRN (Reason: Cough) Qty: 30 0RF Referrals Follow up/Referrals: Deshaun Almanza MD [Primary Care Provider] - See instructions Clinical Impressions Clinical Impression: URI (upper respiratory infection) Instructions Patient Instructions: DI for Viral Upper Respiratory Infection -- Adult Discharge ED Provider: Silvia Patton [facility] General Stated complaint: body aches, sore throat, headache Mode of Arrival: Ambulatory Source of Information: Patient Limitations: No Limitations Time Seen by Provider: 02/02/22 16:22 Description of Symptoms (Recalled from Triage Doc. by RN): pt comes in with c/o headache, body ache, weak. 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 She states that she is concerned that with her body aches, runny nose, and weakness that she may have gotten the flu and wishes to be tested. Related Data Previous Rx's Medication Instructions Recorded bisoprolol fumarate 5 mg tablet See Rx Instructions .Route 07/17/21 .COMPLEX #90 tabs ergocalciferol (vitamin D2) 1,250 1,250 mcg PO WEEKLY #13 caps 07/25/21 mcg (50,000 unit) capsule rosuvastatin 20 mg tablet 20 mg PO DAILY elevated 07/25/21 cholesterol #90 tabs cyclobenzaprine 10 mg tablet 10 mg PO TID PRN Muscle Spasm #30 09/17/21 tabs estradiol 2 mg tablet 2 mg PO DAILY HORMONE REPLACEMENT 09/24/21 #90 tabs benzonatate 100 mg capsule 100 mg PO TIDP PRN Cough #30 caps 11/22/21 alprazolam 0.5 mg tablet 0.5 mg PO TID Anxiety #90 tabs 12/13/21 levothyroxine 50 mcg tablet See Rx Instructions .Route 12/13/21 (Euthyrox) .COMPLEX #90 tabs bupropion HCl 75 mg tablet See Rx Instructions .Route 01/24/22 .COMPLEX #60 tabs Allergies Allergy/AdvReac Type Severity Reaction Status Date / Time codeine Allergy Unknown Verified 02/02/22 15:53 adonis produc Allergy Anaphylaxis Uncoded 12/13/21 15:03 Worker's Comp Is this a Worker's Comp case?: No [facility] Disclaimer: The information contained in this section may have been updated after the patient was seen, as this information can be updated by other users. Medical History Anxiety Chest pain Fatigue HTN (hypertension) Hyperlipemia Palpitations Social History Smoking Status: Never smoker second hand exposure: No alcohol intake: never substance use
[2022-02-02 16:29] VITALS: BP 148/90; PULSE 76; RESP 18; TEMP 36.7
== END 2022-02-02 16:30 | disposition home or self-care (01) ==
PROVIDERS: Emergency Provider Nurse Practitioner Family; PCP Emergency Medicine
DX: J06.9 Acute upper respiratory infection, unspecified (principal)
CPT/HCPCS: 87804; 99212; G0463

== ENCOUNTER → 2022-02-27 06:19 | Outpatient (CLI) | payer OTHER, SELFPAY ==
[2022-02-27 18:05] LABS: Adenovirus,PCR Not Detected (NotDetected); Bordetella Pertussis Not Detected (NotDetected); Chlamydophila Pneumoniae, PCR Not Detected (NotDetected); Coronavirus 19, PCR Not Detected (NotDetected); Coronavirus 229E Not Detected (NotDetected); Coronavirus NL63 Not Detected (NotDetected); Coronavirus OC43 Not Detected (NotDetected); Human Metapneumovirus Not Detected (NotDetected); Influenza A, PCR Not Detected (NotDetected); Influenza AH1, 2009 Not Detected (NotDetected); Influenza AH1, PCR Not Detected (NotDetected); Influenza AH3,PCR Not Detected (NotDetected); Influenza B, PCR Not Detected (NotDetected); Mycoplasma Pneumoniae, PCR Not Detected (NotDetected); Parainfluenza 1, PCR Not Detected (NotDetected); Parainfluenza 2, PCR Not Detected (NotDetected); Parainfluenza 3, PCR Not Detected (NotDetected); Parainfluenza 4, PCR Not Detected (NotDetected); Respiratory Syncytial Virus Not Detected (NotDetected)
[2022-02-27 23:33] LABS: Coronovirus HKU1,PCR Detected (NotDetected); Rhinovirus/Enterovirus Detected (NotDetected)
== END ==
LOC: LAB.DROPOF 02-28 06:20
PROVIDERS: PCP Student in an Organized Health Care Education/Training Program; Visit Provider Student in an Organized Health Care Education/Training Program
DX: U07.1 COVID-19 (principal); J02.9 Acute pharyngitis, unspecified; B34.1 Enterovirus infection, unspecified
CPT/HCPCS: 87070; 87581; 87632; 87798; C9803; U0003; U0005

== ENCOUNTER → 2022-03-12 15:40 | Outpatient (CLI) | payer OTHER, SELFPAY ==
[2022-03-12 20:29] LABS: Amphetamine/Metha Screen,Urine Negative ng/ml (<1000)
[2022-03-12 20:30] LABS: Barbiturates Screen,Urine Negative ng/ml (<200); Benzodiazepines Screen,Urine Positive ng/ml (<200)
[2022-03-12 20:31] LABS: Cannabinoid Screen,Urine Negative ng/ml (<50)
[2022-03-12 20:33] LABS: Cocaine Screen,Urine Negative ng/ml (<300)
[2022-03-12 20:34] LABS: Methadone Screen,Urine Negative ng/ml (<300)
[2022-03-12 20:35] LABS: Opiate Screen,Urine Negative ng/ml (<300); Phencyclidine Screen,Urine Negative ng/ml (<25)
== END ==
LOC: LAB.DROPOF 03-13 07:22
PROVIDERS: PCP Emergency Medicine; Visit Provider Emergency Medicine
DX: Z79.899 Other long term (current) drug therapy (principal)
CPT/HCPCS: 80305

== ENCOUNTER 2022-04-23 18:28 | Emergency (ER) | payer OTHER, SELFPAY ==
[2022-04-23] VITALS (7 sets, daily range): BP systolic 101–138; BP diastolic 60–86; PULSE 69–88; RESP 16–18; TEMP 36.7–37; O2SAT 94–98; BMI 28.9
--- NOTE | 2022-04-23 18:42 | XR_ITS ---
PROCEDURE INFORMATION: Exam: XR Left Knee Exam date and time: 04/23/2022 7:21 PM Age: 51 years old Clinical indication: Pain; Knee; Left; Additional info: Post. Knee/popliteal pain, denies trauma, awoke wi TECHNIQUE: Imaging protocol: Radiologic exam of the left knee. Views: 3 views. COMPARISON: CA VENOUS DOPPLER LE LT 08/03/2020 2:28 PM FINDINGS: Bones/joints: No fracture. Normal alignment. Ill-defined approximately 2.5 x 1.4 by 0.7 cm zone of eccentric to intramedullary sclerosis in the anterolateral distal femoral metaphysis with wide zone of transition. No lytic elements. Mild smooth undulating overlying periosteal thickening. No cortical expansion. This is nonspecific in nature. Recommend prompt nonemergent pre and postcontrast MRI of the knee to fully include the femoral metaphyseal region to exclude features of primary or metastatic malignancy, or infection. No significant joint effusion is present. Joint spaces are well-maintained. Minimal medial joint line osteoarthritic spurring. Soft tissues: No gross soft tissue abnormalities. No foreign bodies. No gross abnormalities in the popliteal fossa. IMPRESSION: 1. Ill-defined area of eccentric to intramedullary sclerosis and mild overlying periosteal thickening in the anterolateral distal femoral metaphysis. This is nonspecific and might represent a chronic benign process such as remote prior trauma or involuted fibro-osseous lesion, however can not definitively exclude primary or metastatic malignancy, particularly given atraumatic knee pain. Recommend prompt nonemergent pre and postcontrast MRI of the knee. 2. These findings initiated a critical results reporting process. An addendum will be issued at the time of clinician notification.
--- NOTE | 2022-04-23 19:40 | PC.NURSE ---
Dr Yi speaking with ruben
--- NOTE | 2022-04-23 19:44 | PC.NURSE ---
Dr. Yi speaking with Dr. Santana
--- NOTE | 2022-04-23 19:51 | PC.NURSE ---
Spoke with [facility] about pt receiving follow-up care. Advised they would call us back.
--- NOTE | 2022-04-23 20:00 | PC.NURSE ---
Knee immobilizer applied to right knee
--- NOTE | 2022-04-23 20:04 | HMH.EDEXTP ---
Discharge Plan Disposition Patient Disposition: Home, Self-Care Condition: Good Prescriptions Prescriptions: No Action estradiol 2 mg tablet 2 mg PO DAILY Qty: 90 3RF bisoprolol fumarate 5 mg tablet See Rx Instructions .ROUTE .COMPLEX Qty: 90 0RF Dose Instruction: TAKE 1/2 (ONE-HALF) TABLET BY MOUTH ONCE DAILY FOR HIGH BLOOD PRESSURE Rx Instructions: TAKE 1/2 (ONE-HALF) TABLET BY MOUTH ONCE DAILY FOR HIGH BLOOD PRESSURE alprazolam 0.5 mg tablet 0.5 mg PO TID Qty: 90 2RF fluticasone propionate [Children's Flonase Allergy Rlf] 50 mcg/actuation spray,suspension 1 spray intranasal DAILY Qty: 16 2RF Rx Instructions: administer into each nostril rosuvastatin 20 mg tablet 20 mg PO DAILY Qty: 90 3RF ergocalciferol (vitamin D2) 1,250 mcg (50,000 unit) capsule 1,250 mcg PO WEEKLY Qty: 13 3RF levothyroxine 50 mcg tablet See Rx Instructions .ROUTE .COMPLEX Qty: 90 0RF Dose Instruction: Take 1 tablet by mouth once daily Rx Instructions: Take 1 tablet by mouth once daily bupropion HCl 75 mg tablet See Rx Instructions .ROUTE .COMPLEX Qty: 60 0RF Dose Instruction: Take 1 tablet by mouth twice daily Rx Instructions: Take 1 tablet by mouth twice daily Referrals Follow up/Referrals: Deshaun Almanza MD [Primary Care Provider] - See instructions Activity Restrictions/Add. Instructions Additional Instructions/Restrictions: Use the knee immobilizer and crutches and follow-up with [facility] orthopedic surgery service as discussed. Ice and elevate the knee as needed for discomfort. Tylenol and/or Motrin as needed for discomfort. Follow-up tomorrow morning at [address] Almanza Clinical Impressions Clinical Impression: Acute pain of left knee, Mass of joint of left knee Discharge ED Provider: Fritz Yi Extremity Problem HPI General Chief complaint: Extremity Injury, Lower Stated complaint: Pain L leg Time Seen by Provider: 04/23/22 19:59 Mode of Arrival: Wheelchair Limitations: Physical Limitations Description of Symptoms (Recalled from ER Triage Doc. by RN): Pt reports awakening this morning with posterior left knee pain, increasing throughout workday; denies trauma/fall/injury cause; NAD History of Present Illness HPI Narrative: Patient presents complaint of pain to the left knee with which she awoke this morning. She went to bed feeling well last night. She states she tossed and turned during the night but did not have known injury. States pain is most like to the posterior aspect of the knee. Pain is moderate and worse with weightbearing. Related Data Previous Rx's Medication Instructions Recorded ergocalciferol (vitamin D2) 1,250 1,250 mcg PO WEEKLY #13 caps 07/25/21 mcg (50,000 unit) capsule rosuvastatin 20 mg tablet 20 mg PO DAILY elevated 07/25/21 cholesterol #90 tabs estradiol 2 mg tablet 2 mg PO DAILY HORMONE REPLACEMENT 09/24/21 #90 tabs levothyroxine 50 mcg tablet See Rx Instructions .Route 03/07/22 .COMPLEX #90 tabs alprazolam 0.5 mg tablet 0.5 mg PO TID Anxiety #90 tabs 03/12/22 bisoprolol fumarate 5 mg tablet See Rx Instructions .Route 03/12/22 .COMPLEX #90 tabs bupropion HCl 75 mg tablet See Rx Instructions .Route 03/24/22 .COMPLEX #60 tabs fluticasone propionate 50 1 spray intranasal DAILY #16 grams 04/21/22 mcg/actuation nasal spray,suspension (Children's Flonase Allergy Relief) Allergies Allergy/AdvReac Type Severity Reaction Status Date / Time codeine Allergy Unknown Verified 04/21/22 11:01 adonis produc Allergy Anaphylaxis Uncoded 04/21/22 11:01 [facility] Disclaimer: The information contained in this section may have been updated after the patient was seen, as this information can be updated by other users. Medical History Anxiety Chest pain Fatigue HTN (hypertension) Hyperlipemia Palpitations Social Histor
--- NOTE | 2022-04-23 20:12 | PC.NURSE ---
faxed facesheet to [facility]
--- NOTE | 2022-04-23 20:29 | CT_ITS ---
PROCEDURE INFORMATION: Exam: CT Left Lower Extremity Without and With Contrast, Knee Exam date and time: 04/23/2022 9:22 PM Age: 51 years old Clinical indication: Pain; Knee; Left; Additional info: Pain and swelling, nki TECHNIQUE: Imaging protocol: CT of the left lower extremity without and with intravenous contrast was performed. Exam focused on the knee. Radiation optimization: All CT scans at this facility use at least one of these dose optimization techniques: automated exposure control; mA and/or kV adjustment per patient size (includes targeted exams where dose is matched to clinical indication); or iterative reconstruction. Contrast material: ISOVUE; Contrast volume: 75 ml; Contrast route: IV; REPORTING DATA: Count of CT and Cardiac NM exams in prior 12 months: This patient has received 0 known CTs and 0 known cardiac nuclear medicine studies in the 12 months prior to the current study. COMPARISON: CR XR KNEE LT 3V 04/23/2022 7:21 PM FINDINGS: Bones/joints: No acute fractures or evidence of bony stress reaction. There are no bone lesions corresponding to the vague area of increased sclerosis in the lateral aspect of the distal femoral metaphysis seen on x-ray. Presumably this was an artifactual appearance from compound trabecular shadows and mild local posterior cortical variability at the gastroc origins. There is a multilocular benign-appearing subcortical cystic focus along the posteromedial tibial plateau best seen on the sagittal reconstructions measuring 14 x 6 x 12 mm, with thin sclerotic peripheral margin, most consistent with incidental subcortical ganglion cyst. Soft tissues: There is no aggressive periostitis or osteolysis. There is a small knee joint effusion with partial distention of the subacromial/subdeltoid bursa producing a very small Pearl's cyst measuring 2.2 cm in length. No evidence of cyst rupture. Slightly varicose superficial veins in the medial subcutaneous tissues of the knee, greater saphenous distribution. IMPRESSION: 1. There are no bone lesions in the distal femoral metaphysis corresponding to the questioned sclerotic lesion seen on the knee radiographs, considered an artifactual appearance at this point. 2. Small knee joint effusion with very small Pearl's cyst and no evidence of cyst rupture. 3. Small multilocular subcortical intraosseous ganglion cyst along the posteromedial tibial plateau measuring up to 14 mm, demonstrating nonaggressive features.
--- NOTE | 2022-04-23 20:30 | HMH.EDEXTP ---
Discharge Plan Disposition Patient Disposition: Home, Self-Care Condition: Good Prescriptions Prescriptions: No Action estradiol 2 mg tablet 2 mg PO DAILY Qty: 90 3RF bisoprolol fumarate 5 mg tablet See Rx Instructions .ROUTE .COMPLEX Qty: 90 0RF Dose Instruction: TAKE 1/2 (ONE-HALF) TABLET BY MOUTH ONCE DAILY FOR HIGH BLOOD PRESSURE Rx Instructions: TAKE 1/2 (ONE-HALF) TABLET BY MOUTH ONCE DAILY FOR HIGH BLOOD PRESSURE levothyroxine 50 mcg tablet See Rx Instructions .ROUTE .COMPLEX Qty: 90 0RF Dose Instruction: Take 1 tablet by mouth once daily Rx Instructions: Take 1 tablet by mouth once daily alprazolam 0.5 mg tablet 0.5 mg PO TID Qty: 90 2RF fluticasone propionate [Children's Flonase Allergy Rlf] 50 mcg/actuation spray,suspension 1 spray intranasal DAILY Qty: 16 2RF Rx Instructions: administer into each nostril rosuvastatin 20 mg tablet 20 mg PO DAILY Qty: 90 3RF ergocalciferol (vitamin D2) 1,250 mcg (50,000 unit) capsule 1,250 mcg PO WEEKLY Qty: 13 3RF bupropion HCl 75 mg tablet See Rx Instructions .ROUTE .COMPLEX Qty: 60 2RF Dose Instruction: Take 1 tablet by mouth twice daily Rx Instructions: Take 1 tablet by mouth twice daily Referrals Follow up/Referrals: Joel Santana DO [Staff Physician] - See instructions Deshaun Almanza MD [Primary Care Provider] - See instructions Activity Restrictions/Add. Instructions Additional Instructions/Restrictions: Use the knee immobilizer and crutches and follow-up with [facility] orthopedic surgery service as discussed. Ice and elevate the knee as needed for discomfort. Tylenol and/or Motrin as needed for discomfort. Follow-up tomorrow morning at [address] Almanza Clinical Impressions Clinical Impression: Acute pain of left knee, Mass of joint of left knee, Internal derangement of left knee Stand Alone Forms Stand Alone Forms: Work/School Release Discharge ED Provider: Fritz Yi Extremity Problem HPI General Chief complaint: Extremity Injury, Lower Stated complaint: Pain L leg Time Seen by Provider: 04/23/22 19:59 Mode of Arrival: Wheelchair Limitations: Physical Limitations Description of Symptoms (Recalled from ER Triage Doc. by RN): Pt reports awakening this morning with posterior left knee pain, increasing throughout workday; denies trauma/fall/injury cause; NAD Related Data Previous Rx's Medication Instructions Recorded ergocalciferol (vitamin D2) 1,250 1,250 mcg PO WEEKLY #13 caps 07/25/21 mcg (50,000 unit) capsule rosuvastatin 20 mg tablet 20 mg PO DAILY elevated 07/25/21 cholesterol #90 tabs estradiol 2 mg tablet 2 mg PO DAILY HORMONE REPLACEMENT 09/24/21 #90 tabs bisoprolol fumarate 5 mg tablet See Rx Instructions .Route 03/12/22 .COMPLEX #90 tabs fluticasone propionate 50 1 spray intranasal DAILY #16 grams 04/21/22 mcg/actuation nasal spray,suspension (Children's Flonase Allergy Relief) bupropion HCl 75 mg tablet See Rx Instructions .Route 04/29/22 .COMPLEX #60 tabs alprazolam 0.5 mg tablet 0.5 mg PO TID Anxiety #90 tabs 06/06/22 levothyroxine 50 mcg tablet See Rx Instructions .Route 06/06/22 .COMPLEX #90 tabs Allergies Allergy/AdvReac Type Severity Reaction Status Date / Time codeine Allergy Unknown Verified 06/06/22 15:50 adonis produc Allergy Anaphylaxis Uncoded 06/06/22 15:50 [facility] Disclaimer: The information contained in this section may have been updated after the patient was seen, as this information can be updated by other users. Medical History Anxiety Chest pain Fatigue HTN (hypertension) Hyperlipemia Palpitations Social History Smoking Status: Never smoker second hand exposure: No alcohol intake: never substance use type: denies use current occupational status: other Travel in
--- NOTE | 2022-04-23 20:44 | PC.NURSE ---
Dr. Almanza at bedside speaking with pt. Decision made to line and lab pt and he gave VO for CT with contrast and wo of the left knee. Pt agreeable with POC.
[2022-04-23 20:52] LABS: Basophils # 0.2 K/mm3 (0-0.2); Basophils % 1.8 % (0.1-2.0); Eosinophils # 0.4 K/mm3 (0.0-0.4); Eosinophils % 3.9 % (0.1-12.0); Hematocrit 43.1 % (37.0-47.0); Hemoglobin 14.7 g/dL (12.2-16.2); Lymphocytes # 1.8 K/mm3 (0.7-4.5); Lymphocytes % 16.5 % (10-50); Mean Corpuscular HGB Conc 34.3 g/dL (31.8-35.4); Mean Corpuscular Hemoglobin 31.2 pg (27.0-31.2); Mean Platelet Volume 7.2 fl (7.4-10.4); Monocytes # 0.5 K/mm3 (0.1-1.0); Monocytes % 4.1 % (1.7-9.3); Neutrophils # 8.2 K/mm3 (1.8-7.8); Neutrophils % 73.7 % (37.0-80.0); Platelet Count 511 K/mm3 (142-424); Red Blood Count 4.73 M/mm3 (4.20-5.40); Red Cell Distribution Width 12.5 % (11.5-17.5); White Blood Count 11.1 K/mm3 (4.8-10.8)
[2022-04-23 20:57] LABS: Alanine Aminotransferase 23 U/L (12-78); Albumin Level 4.7 g/dl (3.5-5.0); Albumin/Globulin Ratio 1.3 (1.1-1.8); Alkaline Phosphatase 54 U/L (38-126); Anion Gap 11.1 mEq/L (5-15); Aspartate Amino Transferase 31 U/L (14-36); Bilirubin,Total 0.5 mg/dl (0.2-1.3); Blood Urea Nitrogen 10 mg/dl (7-17); Calcium 9.5 mg/dl (8.4-10.2); Carbon Dioxide 30 mmol/L (22.0-30.0); Chloride 103 mmol/L (98-107); Creatinine Clearance Estimated 84 mL/min (50-200); Estimated Glomerular Filt Rate 66 ml/min (>60); GFR (African American) 80 ML/MIN (>60); Globulin 3.5 g/dL (1.3-3.2); Glucose 114 mg/dl (74-100); Potassium 4.1 mmoL/L (3.5-5.1); Sodium 140 mmol/L (136-145); Total Protein,Serum 8.2 g/dl (6.3-8.2)
--- NOTE | 2022-04-23 21:17 | PC.NURSE ---
Pt gone to RAD via stretcher
[2022-04-23 21:26] LABS: Erythrocyte Sedimentation Rate 91 mm/hr (0-30)
--- NOTE | 2022-04-23 21:31 | PC.NURSE ---
Pt back from RAD
[2022-04-23 21:45] LABS: C-Reactive Protein 34.7 mg/L (0-4)
--- NOTE | 2022-04-23 22:06 | PC.NURSE ---
rounded on pt at this time. Advises pain feels better. Resting in bed and no new needs at this time
--- NOTE | 2022-04-23 22:15 | PC.NURSE ---
Dr. Santana pagegopi
--- NOTE | 2022-04-23 22:15 | PC.NURSE ---
Dr. Almanza speaking with Dr. Santana
--- NOTE | 2022-04-23 22:27 | PC.NURSE ---
Dr. Almanza at speaking with pt/family
== END 2022-04-23 22:42 | disposition home or self-care (01) ==
PROVIDERS: Emergency Provider Emergency Medicine; PCP Emergency Medicine
DX: M25.562 Pain in left knee (principal); M25.862 Other specified joint disorders, left knee; Z86.59 Personal history of other mental and behavioral disorders
CPT/HCPCS: 73562; 73702; 80053; 85025; 85651; 86140; 96374; 96375; 99285; J0131; J2405; Q9967

== ENCOUNTER → 2022-05-02 10:17 | Outpatient (CLI) | payer OTHER, SELFPAY ==
--- NOTE | 2022-05-02 10:17 | MR_ITS ---
FINAL REPORT CLINICAL HISTORY: knee pain pain behind knee x 1 week and swelling FINDINGS: Multiplanar MR imaging of the right knee was performed without contrast. There is a probable focal tear involving the posterior horn of the medial meniscus. The lateral meniscus is intact. The anterior and posterior cruciate ligaments are intact. The medial collateral ligament and lateral ligamentous complex are intact. The patellar and quadriceps tendons are intact. There is no evidence of fracture. There is focal distal patellar tendinitis. There is mild patellofemoral chondromalacia. Small joint effusion is seen. The musculature is intact. Small popliteal cyst is identified. IMPRESSION: Probable focal tear posterior horn medial meniscus. Patellofemoral chondromalacia. Reviewed, Interpreted and Dictated by Kavon Noble III, MD Transcribed by Kylie Haley Authenticated and [facility]
== END ==
LOC: RAD 10:17
PROVIDERS: PCP Emergency Medicine; Visit Provider Physician Assistant Surgical
DX: M25.562 Pain in left knee (principal); M25.862 Other specified joint disorders, left knee
CPT/HCPCS: 73721

== ENCOUNTER → 2022-05-27 23:33 | Outpatient (CLI) | payer OTHER, SELFPAY | PROVIDERS: PCP Student in an Organized Health Care Education/Training Program; Visit Provider Student in an Organized Health Care Education/Training Program | DX: Z20.822 Contact with and (suspected) exposure to COVID-19 (principal); J02.9 Acute pharyngitis, unspecified; R69 Illness, unspecified | CPT/HCPCS: C9803; U0003; U0005 ==

== ENCOUNTER → 2022-08-05 23:21 | Outpatient (CLI) | payer OTHER, SELFPAY | PROVIDERS: PCP Student in an Organized Health Care Education/Training Program; Visit Provider Student in an Organized Health Care Education/Training Program | DX: J02.9 Acute pharyngitis, unspecified (principal) ==

== ENCOUNTER 2022-08-30 15:31 | Emergency (ER) | payer OTHER, SELFPAY ==
[2022-08-30 15:31] VITALS: BP 151/80; PULSE 120; RESP 18; TEMP 38.1; O2SAT 95; BMI 29.8
[2022-08-30 15:50] LABS: UTC Strep Screen (Rapid) Positive (Negative)
--- NOTE | 2022-08-30 15:53 | EXP.UTC ---
Discharge Plan Disposition Patient Disposition: Home, Self-Care Condition: Good Prescriptions Prescriptions: New amoxicillin [amoxicillin] 500 mg tablet 500 mg PO TID 10 Days Qty: 30 0RF prednisone 10 mg tablet 10 mg PO BID 3 Days Qty: 6 0RF benzonatate [benzonatate] 100 mg capsule 100 mg PO TIDP PRN (Reason: Cough) Qty: 30 0RF No Action estradiol 2 mg tablet 2 mg PO DAILY Qty: 90 3RF bisoprolol fumarate 5 mg tablet See Rx Instructions .ROUTE .COMPLEX Qty: 90 0RF Dose Instruction: TAKE 1/2 (ONE-HALF) TABLET BY MOUTH ONCE DAILY FOR HIGH BLOOD PRESSURE Rx Instructions: TAKE 1/2 (ONE-HALF) TABLET BY MOUTH ONCE DAILY FOR HIGH BLOOD PRESSURE levothyroxine 50 mcg tablet See Rx Instructions .ROUTE .COMPLEX Qty: 90 0RF Dose Instruction: Take 1 tablet by mouth once daily Rx Instructions: Take 1 tablet by mouth once daily alprazolam 0.5 mg tablet 0.5 mg PO TID Qty: 90 2RF [id number] [Bromfed DM] 2-30-10 mg/5 mL syrup 7.5 ml PO Q4-6H PRN (Reason: allergy symptoms) Qty: 118 0RF levocetirizine 5 mg tablet 5 mg PO DAILY Qty: 30 2RF pseudoephedrine HCl 120 mg tablet extended release 120 mg PO Q12H PRN (Reason: nasal congestion) Qty: 20 0RF fluticasone propionate [Children's Flonase Allergy Rlf] 50 mcg/actuation spray,suspension 1 spray intranasal DAILY Qty: 16 2RF Rx Instructions: administer into each nostril ergocalciferol (vitamin D2) 1,250 mcg (50,000 unit) capsule 1,250 mcg PO WEEKLY Qty: 13 3RF bupropion HCl 75 mg tablet 75 mg PO BID Qty: 60 2RF meloxicam 15 mg tablet 15 mg PO DAILY Qty: 30 2RF rosuvastatin 20 mg tablet 20 mg PO DAILY Qty: 90 3RF Referrals Follow up/Referrals: Deshaun Almanza MD [Primary Care Provider] - See instructions Activity Restrictions/Add. Instructions Additional Instructions/Restrictions: Drink plenty of fluids. Take tylenol or ibuprofen for pain or fever. Take the medications as directed. Follow up with your regular doctor. GO TO THE ER FOR ANY WORSENING SYMPTOMS Clinical Impressions Clinical Impression: Pharyngitis Instructions Patient Instructions: DI for Pharyngitis/Tonsillopharyngitis -- Adult Discharge ED Provider: Rich William [facility] General Stated complaint: sore throat,nausea Mode of Arrival: Ambulatory Source of Information: Patient Limitations: No Limitations Time Seen by Provider: 08/30/22 15:52 Description of Symptoms (Recalled from Triage Doc. by RN): Patient reports temp, sore throat, earache, and body aches since yesterday. HEENT Symptoms (Recalled from RN notes): Yes Resp Symptoms (Recalled from RN notes): No Skin Symptoms (Recalled from RN notes): No MS Symptoms (Recalled from RN notes): No Functional Status (Recalled from RN notes): wnl History of Present Illness Provider Complaint: She states that for the past 3 days she has had sore throat, body aches, and chills. Related Data Previous Rx's Medication Instructions Recorded ergocalciferol (vitamin D2) 1,250 1,250 mcg PO WEEKLY #13 caps 07/25/21 mcg (50,000 unit) capsule estradiol 2 mg tablet 2 mg PO DAILY HORMONE REPLACEMENT 09/24/21 #90 tabs bisoprolol fumarate 5 mg tablet See Rx Instructions .Route 03/12/22 .COMPLEX #90 tabs fluticasone propionate 50 1 spray intranasal DAILY #16 grams 04/21/22 mcg/actuation nasal spray,suspension (Children's Flonase Allergy Relief) alprazolam 0.5 mg tablet 0.5 mg PO TID Anxiety #90 tabs 06/06/22 levothyroxine 50 mcg tablet See Rx Instructions .Route 06/06/22 .COMPLEX #90 tabs bupropion HCl 75 mg tablet 75 mg PO BID #60 tabs 07/07/22 meloxicam 15 mg tablet 15 mg PO DAILY Arthritis #30 tabs 07/18/22 knzdswoenwshhiz-vhndmewapfyzdps-DF 7.5 ml PO Q4-6H PRN allergy 07/24/22 2 mg-30 mg-10 mg/5 mL oral syrup symptoms #118 mL (Bromfed DM) rosuvastatin 20 mg tablet 20 mg PO DAILY elevated 07/28/22 cholesterol #90
[2022-08-30 16:22] VITALS: BP 151/80; PULSE 120; RESP 18; TEMP 38.1; O2SAT 95
== END 2022-08-30 16:23 | disposition home or self-care (01) ==
PROVIDERS: Emergency Provider Nurse Practitioner Family; PCP Emergency Medicine
DX: J02.0 Streptococcal pharyngitis (principal); R50.9 Fever, unspecified; I10 Essential (primary) hypertension; E78.5 Hyperlipidemia, unspecified; F41.9 Anxiety disorder, unspecified
CPT/HCPCS: 87880; 99212; 99214; G0463

== ENCOUNTER → 2022-09-01 15:58 | Outpatient (CLI) | payer OTHER, SELFPAY ==
[2022-09-01 18:43] LABS: Chol/HDL Ratio 2.3 (1-3.5); Cholesterol 255 mg/dl (140-200); HDL Cholesterol 109 mg/dl (40-60); Triglycerides 168 mg/dl (30-150); VLDL Cholesterol 34 mg/dL (0-40)
[2022-09-01 19:00] LABS: 25-OH Vitamin D, Total 58.4 ng/mL (30-100)
[2022-09-01 19:01] LABS: T4 (Thyroxine) 10.3 ug/dl (5.53-11.0)
[2022-09-01 19:05] LABS: Direct LDL Cholesterol 108.42 mg/dL (100-129)
[2022-09-01 19:14] LABS: Thyroid Stimulating Hormone 2.37 uIU/mL (0.465-4.68)
== END ==
LOC: LAB.DROPOF 09-02 07:08
PROVIDERS: PCP Emergency Medicine; Visit Provider Emergency Medicine
DX: E03.9 Hypothyroidism, unspecified (principal); E78.5 Hyperlipidemia, unspecified; I10 Essential (primary) hypertension; E66.9 Obesity, unspecified; Z68.29 Body mass index [BMI] 29.0-29.9, adult
CPT/HCPCS: 80061; 82306; 84436; 84443

== ENCOUNTER → 2022-11-06 15:35 | Outpatient (CLI) | payer OTHER, SELFPAY ==
--- NOTE | 2022-11-06 15:36 | MM_ITS ---
PROCEDURE INFORMATION: Exam: MG Bilateral Screening 3D Mammography Exam date and time: 11/06/2022 3:28 PM Age: 51 years old Clinical indication: Screening examination; No personal or family history of breast cancer TECHNIQUE: Imaging protocol: Bilateral Screening tomosynthesis and 2D mammography including computer-aided detection (CAD) when performed. COMPARISON: 1. MG MM DIG SCREENING MAMM BI W/CAD 04/26/2020 4:51 PM 2. MG DMSB DIG MAMM-SCREEN AVNESSA W/CAD 12/01/2016 5:01 PM FINDINGS: MAMMOGRAPHY: Breast composition: There are scattered areas of fibroglandular density. Mass: None. Architectural distortion: None. Calcifications: No suspicious calcifications. Asymmetric density: None. Skin thickening: None. Axillary adenopathy: None. IMPRESSION: No mammographic evidence of malignancy. Annual screening is recommended unless otherwise clinically indicated. ASSESSMENT: BI-RADS Category 1: Negative
== END ==
PROVIDERS: PCP Emergency Medicine; Visit Provider Obstetrics & Gynecology
DX: Z12.31 Encounter for screening mammogram for malignant neoplasm of breast (principal)
CPT/HCPCS: 77063; 77067

== ENCOUNTER → 2022-11-07 23:27 | Outpatient (CLI) | payer OTHER, SELFPAY ==
[2022-11-07 18:47] LABS: Basophils # 0.1 K/mm3 (0-0.2); Basophils % 0.8 % (0.1-2.0); Eosinophils # 0.3 K/mm3 (0.0-0.4); Eosinophils % 2.8 % (0.1-12.0); Hematocrit 45.2 % (37.0-47.0); Hemoglobin 14.4 g/dL (12.2-16.2); Lymphocytes # 2.8 K/mm3 (0.7-4.5); Lymphocytes % 29.3 % (10-50); Mean Corpuscular HGB Conc 31.8 g/dL (31.8-35.4); Mean Corpuscular Hemoglobin 30.1 pg (27.0-31.2); Mean Corpuscular Volume 94.6 fl (81-99); Mean Platelet Volume 8.7 fl (7.4-10.4); Monocytes # 0.5 K/mm3 (0.1-1.0); Monocytes % 4.9 % (1.7-9.3); Neutrophils # 5.8 K/mm3 (1.8-7.8); Neutrophils % 62.2 % (37.0-80.0); Platelet Count 434 K/mm3 (142-424); Red Blood Count 4.78 M/mm3 (4.20-5.40); Red Cell Distribution Width 12.8 % (11.5-17.5); White Blood Count 9.4 K/mm3 (4.8-10.8)
[2022-11-07 18:54] LABS: Alanine Aminotransferase 25 U/L (12-78); Albumin Level 4.3 g/dl (3.5-5.0); Albumin/Globulin Ratio 1.3 (1.1-1.8); Alkaline Phosphatase 44 U/L (38-126); Anion Gap 13.4 mEq/L (5-15); Aspartate Amino Transferase 32 U/L (14-36); Bilirubin,Total 0.2 mg/dl (0.2-1.3); Blood Urea Nitrogen 8 mg/dl (7-17); Carbon Dioxide 30 mmol/L (22.0-30.0); Chloride 102 mmol/L (98-107); Chol/HDL Ratio 2.1 (1-3.5); Cholesterol 184 mg/dl (140-200); Estimated Glomerular Filt Rate 66 ml/min (>60); GFR (African American) 80 ML/MIN (>60); Globulin 3.3 g/dL (1.3-3.2); Glucose 95 mg/dl (74-100); HDL Cholesterol 89 mg/dl (40-60); Potassium 4.4 mmoL/L (3.5-5.1); Sodium 141 mmol/L (136-145); Total Protein,Serum 7.6 g/dl (6.3-8.2); Triglycerides 224 mg/dl (30-150); VLDL Cholesterol 45 mg/dL (0-40)
[2022-11-07 19:02] LABS: Hemoglobin A1C 5.6 % (4.0-6.0)
[2022-11-07 19:11] LABS: Free T4 (Free Thyroxine) 0.87 ng/dl (0.78-2.19)
[2022-11-07 19:23] LABS: Erythrocyte Sedimentation Rate 34 mm/hr (0-30)
[2022-11-07 19:25] LABS: Thyroid Stimulating Hormone 1.92 uIU/mL (0.465-4.68)
[2022-11-07 19:44] LABS: Vitamin B12 580 pg/mL (239-931)
[2022-11-09 09:36] LABS: C-Reactive Protein 10.5 mg/L (0-4)
[2022-11-09 10:31] LABS: Direct LDL Cholesterol 72.44 mg/dL (100-129)
[2022-11-13 10:58] LABS: Antinuclear Antibodies (ANA) Negative
== END ==
LOC: LAB.DROPOF 23:28
PROVIDERS: PCP Emergency Medicine; Visit Provider Student in an Organized Health Care Education/Training Program
DX: R53.83 Other fatigue (principal); R73.9 Hyperglycemia, unspecified; E03.9 Hypothyroidism, unspecified; M25.50 Pain in unspecified joint; E78.5 Hyperlipidemia, unspecified; E55.9 Vitamin D deficiency, unspecified
CPT/HCPCS: 80053; 80061; 82306; 82607; 83036; 84439; 84443; 85025; 85651; 86038; 86140

== ENCOUNTER → 2022-11-17 14:22 | Outpatient (CLI) | payer OTHER, SELFPAY | LOC: RT 14:23 | PROVIDERS: PCP Emergency Medicine; Visit Provider Nurse Practitioner | DX: I10 Essential (primary) hypertension (principal); E78.5 Hyperlipidemia, unspecified; F41.9 Anxiety disorder, unspecified; R00.2 Palpitations; R53.83 Other fatigue; R60.9 Edema, unspecified; Z86.79 Personal history of other diseases of the circulatory system | CPT/HCPCS: 93270 ==

== ENCOUNTER 2022-11-20 11:27 | Emergency (ER) | payer OTHER, SELFPAY ==
[2022-11-20] VITALS (11 sets, daily range): BP systolic 107–148; BP diastolic 60–80; PULSE 54–64; RESP 13–18; TEMP 36.6; O2SAT 94–99; BMI 29.8
--- NOTE | 2022-11-20 11:21 | ECG_ITS ---
APPROVED REPORT Exam: Resting ECG HR:58 bpm ECG Measurements Heart Rate 58 AXES OR 192 P 60 QRSd 90 QRS -9 QT 387 T 20 QTc 383 Conclusion SINUS BRADYCARDIA LOW QRS VOLTAGE IN PRECORDIAL LEADS [QRS DEFLECTION < 1.0 mV IN CHEST LEADS] MODERATE VOLTAGE CRITERIA FOR LVH, CONSIDER NORMAL VARIANT [MEETS CRITERIA IN ONE OF: R(aVL), S(V1), R(V5), R(V5/V6)+S(V1)] BORDERLINE ECG UNCONFIRMED REPORT Electronically signed by : Luciano Andrade MD 11/22/2022 08:01:40
--- NOTE | 2022-11-20 11:37 | XR_ITS ---
FINAL REPORT CLINICAL HISTORY: chest pain/SOA COMPARISON: 06/09/19 FINDINGS: Two views of the chest were obtained. The heart size and pulmonary vascularity are within normal limits. The mediastinum is normal. No acute pulmonary abnormality is identified. There is no pneumothorax. The bony thorax is intact. IMPRESSION: No active cardiopulmonary disease. Reviewed, Interpreted and Dictated by Kavon Noble III, MD Transcribed by Emerita Vega Authenticated and [facility]
[2022-11-20 11:47] LABS: Chloride 102 mmol/L (98-107)
[2022-11-20 11:48] LABS: Potassium 3.7 mmoL/L (3.5-5.1); Sodium 137 mmol/L (136-145)
--- NOTE | 2022-11-20 11:48 | HMH.EDGENADL ---
Discharge Plan Disposition Patient Disposition: Still a Patient Condition: Good Prescriptions Prescriptions: No Action levocetirizine 5 mg tablet 5 mg PO DAILY PRN ergocalciferol (vitamin D2) 1,250 mcg (50,000 unit) capsule 1,250 mcg PO WEEKLY Qty: 13 3RF alprazolam 0.5 mg tablet 0.5 mg PO TID Qty: 90 2RF fluticasone propionate [Flonase Allergy Relief] 50 mcg/actuation spray,suspension 1 spray intranasal DAILY Rx Instructions: administer into each nostril bupropion HCl 100 mg tablet 100 mg PO BID Qty: 60 2RF meloxicam 15 mg tablet 15 mg PO DAILY Qty: 30 2RF rosuvastatin [Crestor] 40 mg tablet 40 mg PO DAILY Qty: 30 2RF levothyroxine 50 mcg tablet See Rx Instructions .ROUTE .COMPLEX Qty: 90 0RF Dose Instruction: Take 1 tablet by mouth once daily Rx Instructions: Take 1 tablet by mouth once daily bisoprolol fumarate 5 mg tablet See Rx Instructions .ROUTE .COMPLEX Qty: 90 0RF Dose Instruction: TAKE 1/2 (ONE-HALF) TABLET BY MOUTH ONCE DAILY FOR HIGH BLOOD PRESSURE Rx Instructions: TAKE 1/2 (ONE-HALF) TABLET BY MOUTH ONCE DAILY FOR HIGH BLOOD PRESSURE estradiol 2 mg tablet 2 mg PO DAILY Qty: 30 11RF Referrals Follow up/Referrals: Provider,Referral, MD [Referring] - See instructions Activity Restrictions/Add. Instructions Additional Instructions/Restrictions: You were evaluated in the emergency department today. Please keep your close follow-up with your primary care provider and your inside finisher. Keep your Holter monitor on. Continue taking your medications at home as prescribed. Return to the emergency department for new or worsening symptoms. Clinical Impressions Clinical Impression: Chest pain Instructions Patient Instructions: DI for Atypical Chest Pain Discharge ED Provider: Patsy Tee General Adult HPI General Chief complaint: Chest Pain Stated complaint: chest pain Time Seen by Provider: 11/20/22 11:31 Mode of Arrival: Ambulatory Source of Information: Patient Limitations: No Limitations Description of Symptoms (Recalled from ER Triage Doc. by RN): Patient reports midsternal chest pain that began approx 2 hours ago. States her left arm does feel funny . Patient currently has a heart monitor that was put on by Dr. Smith. History of Present Illness HPI narrative: This patient is a 52-year-old female with a history of valvular disease, hypertension, hyperlipidemia, anxiety, and hypothyroidism presented to the emergency department for evaluation with concern for chest pain. Patient reports that for the last 3 weeks, she has been feeling off. She states that she has had fatigue, generalized weakness, and has just not felt right. She has been seen by her primary care provider and was put on a heart monitor by Dr. Smith. She advises that last night, she was very tired and ended up going to bed right after getting home from work. Today, she does not feel right and got very lightheaded while at work. She called her inside finisher and was advised that she should go home and rest. She then called back and notified them that she was having chest pain, so she was instructed to come to the ER. She states that it is sharp and intermittent. She describes it as being substernal and radiating down her left arm. She also notes associated shortness of breath. She denies any fevers, chills, cough, abdominal pain, nausea, vomiting, diaphoresis, change in bowel movements, or other concerns. Related Data Home Medications Medication Instructions Recorded Confirmed fluticasone propionate 50 1 spray intranasal DAILY 10/30/22 11/17/22 mcg/actuation nasal spray,suspension (Flonase Allergy Relief) levocetirizine 5 mg tablet 5 mg PO DAILY PRN 11/17/22 11/17/22 Previous Rx's Medication Instructions Recorded meloxicam 15 mg tablet 15 mg PO DAILY Arthritis #30 tabs 07/18/22 alprazolam 0.5 mg tablet 0.5 mg PO TID Anx
[2022-11-20 11:50] LABS: Alanine Aminotransferase 29 U/L (12-78); Alkaline Phosphatase 39 U/L (38-126); Anion Gap 11.7 mEq/L (5-15); Aspartate Amino Transferase 40 U/L (14-36); Bilirubin,Total 0.3 mg/dl (0.2-1.3); Blood Urea Nitrogen 11 mg/dl (7-17); Carbon Dioxide 27 mmol/L (22.0-30.0); Creatinine Clearance Estimated 93 mL/min (50-200); Estimated Glomerular Filt Rate 75 ml/min (>60); GFR (African American) 91 ML/MIN (>60)
[2022-11-20 11:51] LABS: Albumin Level 4.4 g/dl (3.5-5.0); Albumin/Globulin Ratio 1.2 (1.1-1.8); Calcium 9.2 mg/dl (8.4-10.2); Globulin 3.7 g/dL (1.3-3.2); Glucose 133 mg/dl (74-100); Total Protein,Serum 8.1 g/dl (6.3-8.2)
[2022-11-20 11:54] LABS: Basophils # 0.1 K/mm3 (0-0.2); Basophils % 0.7 % (0.1-2.0); Eosinophils # 0.3 K/mm3 (0.0-0.4); Hemoglobin 14.6 g/dL (12.2-16.2); Lymphocytes # 2.9 K/mm3 (0.7-4.5); Lymphocytes % 30.8 % (10-50); Mean Corpuscular HGB Conc 31.7 g/dL (31.8-35.4); Mean Corpuscular Hemoglobin 30.1 pg (27.0-31.2); Mean Corpuscular Volume 94.9 fl (81-99); Mean Platelet Volume 8.2 fl (7.4-10.4); Monocytes # 0.3 K/mm3 (0.1-1.0); Monocytes % 3.4 % (1.7-9.3); Neutrophils # 5.9 K/mm3 (1.8-7.8); Neutrophils % 62.1 % (37.0-80.0); Platelet Count 415 K/mm3 (142-424); Red Blood Count 4.84 M/mm3 (4.20-5.40); Red Cell Distribution Width 12.8 % (11.5-17.5); White Blood Count 9.5 K/mm3 (4.8-10.8)
[2022-11-20 12:04] LABS: Troponin I < 0.01 ng/ml (0.00-0.034)
--- NOTE | 2022-11-20 12:07 | PC.NURSE ---
pt to xray via wheelchair
[2022-11-20 12:22] LABS: Thyroid Stimulating Hormone 1.85 uIU/mL (0.465-4.68)
--- NOTE | 2022-11-20 13:06 | PC.NURSE ---
Assumed patient care at this time.
--- NOTE | 2022-11-20 14:06 | PC.NURSE ---
Rounded on pt was given a warm blanket and turned light off no other needs ,call light at bs
--- NOTE | 2022-11-20 14:30 | PC.NURSE ---
Rounded on patient; updated on plan of care. Call light within reach of patient
[2022-11-20 15:45] LABS: Troponin I 0.02 ng/ml (0.00-0.034)
--- NOTE | 2022-11-20 15:45 | PC.NURSE ---
calling lab to get and eta on second troponin she says 2minutes
--- NOTE | 2022-11-20 15:47 | PC.NURSE ---
Rounded on patient; updated on plan of care call light within reach
== END 2022-11-20 16:20 | disposition still patient (30) ==
PROVIDERS: Emergency Medicine; Emergency Provider Emergency Medicine; PCP Emergency Medicine
DX: R07.89 Other chest pain (principal); R00.1 Bradycardia, unspecified; R06.02 Shortness of breath; R53.83 Other fatigue; I35.9 Nonrheumatic aortic valve disorder, unspecified; I10 Essential (primary) hypertension; E78.5 Hyperlipidemia, unspecified; E03.9 Hypothyroidism, unspecified; F41.9 Anxiety disorder, unspecified
CPT/HCPCS: 71046; 80053; 84436; 84443; 84484; 85025; 93005; 99284

== ENCOUNTER → 2022-11-28 07:50 | Outpatient (CLI) | payer OTHER, SELFPAY ==
--- NOTE | 2022-11-28 09:16 | CA_ITS ---
APPROVED REPORT Exam: Exercise Treadmill Technologist: Leticia Begum, Ht: 5 ft 1 in Wt: 158 lbs BSA: 1.71 m2 HR: 58 bpm BP: 137/71 mmHg Rhythm: NSR Medical History Medications: Alprazolam,,,,, Levothyroxine,,,,, Flonase,,,,, Estradiol,,,,, MeLOXICAM,,,,, BisOPROLOL Fumarate,,,,, RoSUVASTATIN,,,,, Levocetrizine,,,,, Vit D2,,,,, BuPROPION HCI,,,,, Stress Test Details Test: Charles HR Resting HR: 58 bpm Max Heart Rate (APMHR): 168 bpm Max HR Achieved: 155 bpm Target HR (85% APMHR): 143 bpm % of APMHR: 92 Recovery HR: 75 bpm HR response to stress: Normal HR response to stress BP Resting BP: 133.0/76 mmHg Max BP: 196/76 mmHg Recovery BP: 144.0/72.0 mmHg BP response to stress: Normal blood pressure response to stress. ECG Resting ECG: Sinus bradycardia Stress ECG: < 0.[address] depression Arrhythmia: None Recovery ECG: Return to baseline within 3 minutes of recovery Recovery Arrhythmia: None Clinical Exercise duration: 07:23 min Highest Stage Achieved: III Exercise capacity: 10.1 METs Overall Exercise Capacity for Age: Average Stress ECG Conclusion The patient was able to exercise for a total of 7 minutes, 23 seconds. She achieved a total of 10.1 METS. She has average exercise capacity compared to age and sex matched peers. She has normal HR and BP response to exercise. Max HR: 155 % of PM: 92% Max BP: 196/76 METs: 10.1 Test stopped due to: SOA, CP, possible panic attack Symptoms: CP (sharp, then tightness, then prickly), SOA Arrhythmias/Ectopy: None ST-T Changes: Normal ST response to exercise. Conclusion: Average exercise capacity. Chest pain at peak stress. Normal EKG response at peak stress. GXT only (no imaging) Test Summary REST . . . . . . . Sitting REST . . . . . . . Standing REST 04:28 0.0 0.0 58 . 133/ 76 . . Stage 1 01:00 10.0 1.7 78 . . . . Stage 1 02:00 10.0 1.7 97 . . . . Stage 1 03:00 10.0 1.7 96 . 162/ 80 . . Stage 2 01:00 12.0 2.5 104 . . . . Stage 2 02:00 12.0 2.5 113 . . . . Stage 2 03:00 12.0 2.5 118 . 196/ 76 . . Stage 3 01:00 14.0 3.4 143 . . . . Stage 3 01:23 14.0 3.4 148 . . . Stop exercise at 07:23 RECOVERY 01:00 0.0 0.0 128 . . . . RECOVERY 02:00 0.0 0.0 91 . . . . RECOVERY 03:00 0.0 0.0 84 . 164/ 65 . . RECOVERY 04:00 0.0 0.0 81 . 164/ 65 . . RECOVERY 05:00 0.0 0.0 77 . 145/ 71 . . RECOVERY 06:00 0.0 0.0 75 . 144/ 72 . . RECOVERY 06:24 0.0 0.0 73 . 144/ 72 . . Electronically signed by : Nallely Hairston MD 12/06/2022 23:11:22
== END ==
LOC: RT 07:50
PROVIDERS: PCP Emergency Medicine; Visit Provider Nurse Practitioner Family
DX: R07.9 Chest pain, unspecified (principal); R00.2 Palpitations; I10 Essential (primary) hypertension; E78.5 Hyperlipidemia, unspecified; F41.9 Anxiety disorder, unspecified; R53.83 Other fatigue; Z86.79 Personal history of other diseases of the circulatory system
CPT/HCPCS: 93017

== ENCOUNTER → 2022-12-10 09:32 | Outpatient (CLI) | payer OTHER, SELFPAY | PROVIDERS: PCP Nurse Practitioner Family; Visit Provider Nurse Practitioner Family | DX: J02.9 Acute pharyngitis, unspecified (principal) | CPT/HCPCS: 87070 ==

== ENCOUNTER → 2022-12-12 23:27 | Outpatient (CLI) | payer OTHER, SELFPAY | PROVIDERS: PCP Emergency Medicine; Visit Provider Student in an Organized Health Care Education/Training Program | DX: R06.02 Shortness of breath (principal); R50.9 Fever, unspecified; J02.9 Acute pharyngitis, unspecified; R05.1 Acute cough; R09.89 Other specified symptoms and signs involving the circulatory and respiratory systems | CPT/HCPCS: 87635 ==

== ENCOUNTER → 2023-01-02 14:11 | Outpatient (CLI) | payer OTHER, SELFPAY ==
--- NOTE | 2023-01-02 14:11 | CA_ITS ---
APPROVED REPORT EXAM: Comprehensive 2D, Doppler, and color-flow Echocardiogram Clinical Application Specialist: Lena Tellez RDCS Ht: 5 ft 1 in Wt: 160lbs BSA: 1.72 BP: 134/70 mmHg Indications: CP,HTN,PALPS,HLP 2D Dimensions LVOT 1.65 cm (M/F) 1.5-2.5 M-Mode Dimensions RVDd 2.28 cm (0.9-2.6) LA Diam 3.30 cm (1.9-4.0) LVDd 4.78 cm (3.5-5.7) Ao Diam 2.46 cm (2.0-3.7) LVDs 2.78 cm (3.5-5.7) IVSd 0.94 cm (0.6-1.1) PWd 0.77 cm (0.6-1.1) EF (Teich) 72.80% FS 41.80% EDV (Teich) 106.50 mL ESV (Teich) 29.00 mL LV Diastology E Decel Time 210.00 (160-240 msec) E/A Ratio 1.3 MED E' 8.90 (< 7 cm/sec) E'/MED E' Ratio 8.82 (>14) LAT E' 11.50 (<10 cm/sec) E/LAT E' Ratio 6.83 (>14) Mitral Valve MV E Max Grzegorz. 79.00 (40-130 cm/s) MV A Velocity 63.00 (40-130 cm/s) E/A Ratio 1.25 MV Decel. Time 210.00 (160-240 ms) MV PHT 62.00 ms Left Ventricle The left ventricle is normal size. The left ventricular systolic function is normal. The left ventricular ejection fraction is within the normal range. There is normal left ventricular wall thickness. There is normal LV segmental wall motion. The left ventricular diastolic function is normal. LVEF is 60%. Right Ventricle The right ventricle is normal size. The right ventricular systolic function is normal. Atria The left atrium size is normal. The right atrium size is normal. There is no Doppler evidence of interatrial shunt. Aortic Valve The aortic valve opens well. There is no aortic valvular stenosis. Mild aortic regurgitation. Mitral Valve The mitral valve is normal in structure. Trace mitral regurgitation. Tricuspid Valve The tricuspid valve leaflets are thin and pliable. Trace tricuspid regurgitation. RVSP is normal. Pulmonic Valve The pulmonary valve is normal in structure. Trace pulmonic regurgitation. Great Vessels The aortic root is normal in size. The ascending aorta is normal in size. IVC is normal in size and collapses >50% with inspiration. Pericardium There is no pericardial effusion. Other Information Study Quality: Fair Conclusion Normal biventricular systolic function. Mild AI. Electronically signed by : Nallely Hairston MD 01/05/2023 15:27:22
== END ==
PROVIDERS: PCP Emergency Medicine; Visit Provider Nurse Practitioner Family
DX: E78.5 Hyperlipidemia, unspecified (principal); I10 Essential (primary) hypertension; R00.2 Palpitations; R07.9 Chest pain, unspecified; R53.83 Other fatigue; F41.9 Anxiety disorder, unspecified; Z86.79 Personal history of other diseases of the circulatory system
CPT/HCPCS: 93306

== ENCOUNTER → 2023-01-12 15:05 | Outpatient (CLI) | payer OTHER, SELFPAY ==
[2023-01-12 16:08] LABS: Blood Urea Nitrogen 21 mg/dl (7-17); Estimated Glomerular Filt Rate 58 ml/min (>60); GFR (African American) 70 ML/MIN (>60)
== END ==
PROVIDERS: PCP Internal Medicine; Visit Provider Internal Medicine
DX: I10 Essential (primary) hypertension (principal); R06.02 Shortness of breath; R07.89 Other chest pain; R53.83 Other fatigue
CPT/HCPCS: 36415; 82565; 84520

== ENCOUNTER 2023-01-15 08:51 | Outpatient (CLI) | payer OTHER, SELFPAY ==
[2023-01-15] VITALS (8 sets, daily range): BP systolic 110–157; BP diastolic 48–90; PULSE 56–60; RESP 16–19; TEMP 36.4; O2SAT 96–99
--- NOTE | 2023-01-15 08:52 | CT_ITS ---
APPROVED REPORT Virtual Reality Specialist: CLINICAL INDICATION Chest Pain TECHNIQUE Image Acquisition: A 128 slice MDCT scanner (Blue Roostera View) was used for data acquisition. A noncontrast coronary calcium scan was performed. A CT attenuation threshold of 130 Hounsfield units (HU) was used for the detection of calcium in contiguous voxels of 1 sq mm in area to be counted as individual lesions. Bolus tracking in the ascending aorta with a threshold of 180 HU was performed. Immediately afterwards, ECG synchronized cardiac CT was then performed from the cardiac base to apex using retrospective gating with ECG tube current modulation. A total of 85 mL of Isovue 370 mg/mL contrast medium was administered at 5 mL/sec followed by a saline flush using a biphasic injection protocol. A tube voltage of 120 KVp was used. The patient received the following medications prior to the cardiac CT. 25 mg of oral metoprolol 0.8 mg of sublingual nitroglycerin The average heart rate at the time of acquisition was 66 bpm and regular. Image Reconstruction Transaxial images were reconstructed at 0.67 mm slide thickness. Data was reviewed interactively on an advanced workstation capable of 2 and 3-dimensional displays in all conventional reconstruction formats, including multiplanar reformations, maximum intensity projections, curved multiplanar reformations, and volume rendered reconstructions. When applicable, selected routine images describing the relevant coronary anatomy and pathology were saved and sent to PACS. Complications None Technical Quality Overall image quality was good. Coronary artery opacification was adequate. Total DLP (Dose-Length Product) is 1142.4 mGy-cm. The reported value represents the total of one or more individual components during the CT acquisition of this date and at this time, and as such, the same value may appear in more than one CT report depending on the interpreting/reporting physicians. COMPARISON None FINDINGS CT Coronary Calcium Scoring LMA (Left Main Artery) = 0 LAD (Left Anterior Descending) = 0 LCX (Left Coronary Circumflex) = 0 RCA (Right Coronary Artery) = 0 Total Calcium Score = 0 using the AJ-130 method. The interpretation of the calcium heart score is based on the following continuum*: 0 = no calcified plaque detected (risk of coronary artery disease is very low ??? less than 5%) 1-10 = calcium detected in extremely minimal levels (risk of coronary diseases is still low ??? less than 10%) 11-100 = mild levels of plaque detected with certainty (mild or minimal narrowing of heart arteries is likely) 101-400 = definite,at least moderate levels of plaque detected (relatively high risk of a heart attack within 3-5 years) >401-999 = extensive levels of plaque detected (high risk of heart attack, high levels of vascular disease are present, high likelihood of at least one significant coronary narrowing) *The calcium heart score quantifies the burden of coronary calcification/plaque in the coronary arteries. The calcium heart score is not able to evaluate the presence or burden of non-calcified (i.e. soft) plaque. There is no identifiable calcification in the aortic valve, mitral annulus or mitral valve, pericardium, or myocardium. Coronary CT Angiography Coronaries have normal origin and proximal course. The coronary arterial system is left dominant. Note: Stenosis is reported as maximum percentage diameter stenosis. Quantitative Stenosis Grading: Left Main (LM): The left main originates normally from the left sinus of Valsalva. The LM bifurcates into the left anterior descending artery and left circumflex artery. The LM is patent with no evidence of atherosclerosis. Left Anterior Descending (LAD) an
== END 2023-01-15 11:00 | disposition home or self-care (01) ==
PROVIDERS: PCP Internal Medicine; Visit Provider Nurse Practitioner Family
DX: R06.09 Other forms of dyspnea (principal); R07.89 Other chest pain; R94.30 Abnormal result of cardiovascular function study, unspecified
CPT/HCPCS: 75571; 75574; Q9967

== ENCOUNTER → 2023-01-16 12:06 | Outpatient (CLI) | payer OTHER, SELFPAY ==
[2023-01-16 12:13] LABS: Microscopic, Urine URINE MICROSCOPIC (MICROSCOPIC)
[2023-01-16 12:22] LABS: Appearance,Urine CLEAR (Clear); Bilirubin,Urine Negative (Negative); Blood, Urine 1+ (Negative); Color,Urine YELLOW (Yellow); Glucose,Urine (UA) Negative (Negative); Ketones,Urine Negative (Negative); Leukocyte Esterase,Urine Negative (Negative); Nitrate,Urine Negative (Negative); Protein,Urine Negative (Negative); Specific Gravity, Urine <= 1.005 (1.005-1.030); Urobilinogen,Urine 0.2 EU/dl (0.2)
[2023-01-16 12:53] LABS: Bacteria,Urine Trace /lpf; RBC,Urine Occasional #/hpf (0-3); Squamous Epithelial Cell,Urine Occasional #/hpf (0-5)
== END ==
PROVIDERS: Nurse Practitioner Family; PCP Internal Medicine; Visit Provider Obstetrics & Gynecology
DX: R30.0 Dysuria (principal)
CPT/HCPCS: 81001

== ENCOUNTER 2023-02-23 23:27 | Outpatient (CLI) | payer OTHER, SELFPAY ==
[2023-02-23 20:38] LABS: Amphetamine/Metha Screen,Urine Negative ng/ml (<1000); Barbiturates Screen,Urine Negative ng/ml (<200); Benzodiazepines Screen,Urine Positive ng/ml (<200); Cannabinoid Screen,Urine Negative ng/ml (<50); Cocaine Screen,Urine Negative ng/ml (<300); Methadone Screen,Urine Negative ng/ml (<300); Opiate Screen,Urine Negative ng/ml (<300); Phencyclidine Screen,Urine Negative ng/ml (<25)
[2023-02-28 19:09] LABS: Alprazolam Negative (Cutoff=100); Benzodiazepines Negative ng/mL (Cutoff=100); Clonazepam Negative (Cutoff=100); Flurazepam Negative (Cutoff=100); Lorazepam Negative (Cutoff=100); Midazolam Negative (Cutoff=100); Temazepam Negative (Cutoff=100); Triazolam Negative (Cutoff=100)
== END 2023-02-23 23:59 ==
LOC: LAB.DROPOF 23:27
PROVIDERS: PCP Internal Medicine; Visit Provider Family Medicine
DX: Z79.899 Other long term (current) drug therapy (principal)
CPT/HCPCS: 80307; 80346

== ENCOUNTER 2023-03-23 19:59 | Outpatient (CLI) | payer OTHER, SELFPAY ==
[2023-03-23 19:56] LABS: Triiodothryronine (T3) Uptake 23 % (23.5-40.5)
[2023-03-23 19:57] LABS: Free Thyroxine Index 2.1 ug/dL (5.93-13.13); T4 (Thyroxine) 9.1 ug/dl (5.53-11.0)
== END 2023-03-23 23:59 ==
LOC: LAB.DROPOF 20:00
PROVIDERS: PCP Family Medicine; Visit Provider Family Medicine
DX: E03.9 Hypothyroidism, unspecified (principal)
CPT/HCPCS: 84436; 84443; 84479

== ENCOUNTER 2023-04-18 09:22 | Emergency (ER) | payer OTHER, SELFPAY ==
[2023-04-18 09:40] VITALS: BP 149/81; PULSE 81; RESP 20; TEMP 37.2; O2SAT 95; BMI 30.6
[2023-04-18 10:12] LABS: UTC Influenza A Antigen Negative (Negative); UTC Influenza B Antigen Negative (Negative)
--- NOTE | 2023-04-18 10:13 | EXP.UTC ---
Discharge Plan Disposition Patient Disposition: Home, Self-Care Condition: Good Prescriptions Prescriptions: No Action bisoprolol fumarate 10 mg tablet 10 mg PO DAILY Qty: 30 5RF bupropion HCl 100 mg tablet 100 mg PO BID Qty: 60 2RF levothyroxine 50 mcg tablet See Rx Instructions .ROUTE .COMPLEX Qty: 90 0RF Dose Instruction: Take 1 tablet by mouth once daily Rx Instructions: Take 1 tablet by mouth once daily estradiol 2 mg tablet 2 mg PO DAILY Qty: 30 11RF rosuvastatin 40 mg tablet 40 mg PO DAILY Rx Instructions: Take 1 tablet by mouth once daily Referrals Follow up/Referrals: Maritza Ibrahim APRN [Primary Care Provider] - See instructions Activity Restrictions/Add. Instructions Additional Instructions/Restrictions: No sign of a bacterial infection. Likely viral. Viruses can take 7-14 days to run their course. Nasal saline and bulb syringe or nose Danyelle to remove nasal drainage to help with nasal congestion. Hard to eat, drink, sleep with nasal congestion so important to keep this cleaned out. Monitor temp. Tylenol or Motrin as needed for pain or fever Encourage fluids, water, Gatorade, Powerade, Pedialyte if infant/toddler/child Warm salt water gargles Warm fluids Sore throat lozenges Sleep elevated Humidifier/vaporizer Follow-up immediately for new or worsening symptoms or no noticeable improvement over the next 48-72 hours. Clinical Impressions Clinical Impression: Upper respiratory infection Qualifiers: URI type: unspecified viral URI Qualified Code(s): J06.9 - Acute upper respiratory infection, unspecified Instructions Patient Instructions: DI for Viral Upper Respiratory Infection -- Adult Discharge ED Provider: Pablo ([facility])Sarah [facility] [place] HPI General Stated complaint: body aches, fever Mode of Arrival: Ambulatory Source of Information: Patient Limitations: No Limitations Time Seen by Provider: 04/18/23 10:14 Description of Symptoms (Recalled from Triage Doc. by RN): PATIENT C/O BODY ACHES, HEADACHE, COUGH, AND LOW-GRADE FEVER SINCE THURSDAY. RECENTLY EXPOSED TO FLU HEENT Symptoms (Recalled from RN notes): No Resp Symptoms (Recalled from RN notes): Yes Skin Symptoms (Recalled from RN notes): No MS Symptoms (Recalled from RN notes): No Functional Status (Recalled from RN notes): WNL History of Present Illness Provider Complaint: 52 yr old female presents for c/o body aches,prakash,cough, low grade fever since . RECENTLY EXPOSED TO FLU Related Data Home Medications Medication Instructions Recorded Confirmed rosuvastatin 40 mg tablet 40 mg PO DAILY 04/18/23 04/18/23 Previous Rx's Medication Instructions Recorded estradiol 2 mg tablet 2 mg PO DAILY #30 tabs 11/06/22 bisoprolol fumarate 10 mg tablet 10 mg PO DAILY #30 tabs 02/23/23 bupropion HCl 100 mg tablet 100 mg PO BID #60 tabs 02/23/23 levothyroxine 50 mcg tablet See Rx Instructions .Route 02/23/23 .COMPLEX #90 tabs Allergies Allergy/AdvReac Type Severity Reaction Status Date / Time codeine Allergy Unknown Verified 04/08/23 14:53 benzocaine [From Cetacaine] Allergy Verified 04/18/23 09:57 butamben [From Cetacaine] Allergy Verified 04/18/23 09:57 latex Allergy Verified 04/08/23 14:53 lidocaine Allergy Verified 04/18/23 09:57 tetracaine [From Cetacaine] Allergy Verified 04/18/23 09:57 adonis produc Allergy Anaphylaxis Uncoded 01/21/23 15:05 Worker's Comp Is this a Worker's Comp case?: No [facility] Disclaimer: The information contained in this section may have been updated after the patient was seen, as this information can be updated by other users. Medical History , HUMAN RESOURCES EXECUTIVE ASSISTANT) Abnormal result of cardiovascular function study Abnormal stress test Acute pain of left knee Anxiety Chest pain Dizziness Drug-induced nausea and vomiting Encounter for laboratory testing for COVID-19 virus Fatigue History of COVID-19 History of gastroesophageal reflux (GERD) HTN (hypertension) Hyperlipemia Hypothyroid Lightheadedness Low back pain Mass of joint of left knee Palpitations Pharyngitis SOB (shortness of breath) Sore throat URI (upper respiratory infection) Viral syndrome Surgical History , HUMAN RESOURCES EXECUTIVE ASSISTANT) History of section History of cholecystectomy History of total abdominal hysterectomy History of tubal ligation Family History , HUMAN RESOURCES EXECUTIVE ASSISTANT) Diabetes Mother Father Heart disease Mother Hypertension Mother Father Social History , HUMAN RESOURCES EXECUTIVE ASSISTANT) Smoking Status: Never smoker second hand exposure: No alcohol intake: never substance use type: denies use current occupational status: employed Travel in the last 8 weeks: None household members: family housing: house ROS Obtained: Yes All systems reviewed & no additional complaints except as documented Constitutional Constitutional: Reports system reviewed and no additional complaints, except as documented, Reports as per HPI, Reports body ache and Reports headache(s) Eyes Eyes: Reports system reviewed and no additional complaints, except as documented ENT Ears, Nose, Mouth, and Throat: Reports system reviewed and no additional complaints, except as documented, Reports as per HPI, Reports otalgia, Reports headache(s), Reports nasal congestion and Reports nasal discharge Cardiovascular Cardiovascular: Reports system reviewed and no additional complaints, except as documented Respiratory Respiratory: Reports system reviewed and no additional complaints, except as documented, Reports as per HPI and Reports cough Gastrointestinal Gastrointestingal: Reports system reviewed and no additional complaints, except as documented Integumentary/Breasts Skin/Breast: Reports system reviewed and no additional complaints, except as documented Neurologic Neurologic: Reports system reviewed and no additional complaints, except as documented and Reports headache(s) Endocrine Endocrine: Reports system reviewed and no additional complaints, except as documented Allergic/Immunologic Allergic/Immunologic: Reports system reviewed and no additional complaints, except as documented Physical Exam General General appearance: alert and in no apparent distress Eye Eye exam: Present normal appearance and PERRL ENT ENT exam: Present normal exam, normal oropharynx, mucous membranes moist, TM's normal bilaterally and normal external ear exam Neck Neck exam: Present normal inspection, full ROM and trachea midline; Absent meningismus or lymphadenopathy Chest Chest inspection: Present normal inspection and symmetric chest wall rise; Absent tenderness Respiratory Respiratory exam: Present normal lung sounds bilaterally; Absent respiratory distress Cardiovascular Cardiovascular exam: Present regular rate and normal rhythm; Absent JVD Neurological Exam Neurological exam: Present alert and oriented X3 Psychiatric Psychiatric exam: Present normal affect and normal mood Skin Skin exam: Present warm, dry, intact and normal color Lymphatic Lymphatic Findings: no adenopathy Medical Decision Making Medical Records Medical records reviewed: Yes I reviewed the patient's medical records. Michele Inquiry Pt receiving controlled substance: No Michele was queried for this patient: No Vital Signs: 03/02/24 09:40 Temperature 98.9 F Temperature Source Oral Pulse Rate [Left Brachial] 81 Respiratory Rate 20 Blood Pressure [Left Arm] 149/81 H Blood Pressure Mean [Left Arm] 103 Blood Pressure Source [Left Arm] Automatic Cuff Blood Pressure Position [Left Arm] Sitting 02 Sat by Pulse Oximetry 95 Oxygen Delivery Method Room Air Lab Data Lab results reviewed: Yes I reviewed the patient's lab results. Lab Results 04/18/23 09:52: Influenza Type A Ag Negative, Influenza Type B Ag Negative
[2023-04-18 10:18] VITALS: BP 149/81; PULSE 81; RESP 20; TEMP 37.2; O2SAT 95
[2023-04-18 10:25] LABS: Coronavirus 19, PCR Not Detected (NotDetected); Influenza A, PCR Not Detected (NotDetected); Influenza B, PCR Not Detected (NotDetected)
== END 2023-04-18 10:27 | disposition home or self-care (01) ==
PROVIDERS: Emergency Provider Nurse Practitioner Family; PCP Family Medicine
DX: J06.9 Acute upper respiratory infection, unspecified (principal); R51.9 Headache, unspecified; J01.90 Acute sinusitis, unspecified; R05.9 Cough, unspecified; R50.9 Fever, unspecified; M79.18 Myalgia, other site; B34.9 Viral infection, unspecified; K21.9 Gastro-esophageal reflux disease without esophagitis; E78.5 Hyperlipidemia, unspecified; E03.9 Hypothyroidism, unspecified; I10 Essential (primary) hypertension
CPT/HCPCS: 87636; 87804; 99212; 99213; G0463

== ENCOUNTER 2023-07-03 16:28 | Outpatient (CLI) | payer OTHER, SELFPAY | END 2023-07-03 23:59 | disposition home or self-care (01) | LOC: LAB.DROPOF 16:28 | PROVIDERS: PCP Obstetrics & Gynecology; Visit Provider Obstetrics & Gynecology | DX: L02.91 Cutaneous abscess, unspecified (principal) | CPT/HCPCS: 87070; 87205 ==

== ENCOUNTER 2023-07-04 09:57 | Outpatient (CLI) | payer OTHER, SELFPAY ==
[2023-07-04 10:05] VITALS: BP 126/76; PULSE 56; RESP 18; TEMP 36.5; O2SAT 95
--- NOTE | 2023-07-04 11:11 | P.PN_ITS ---
Subjective *Date: 07/04/23 *Time: 11:11 Interval history: [place] came in for evaluation of her right gluteal abscess. There was a small approximately 4 cm packing that was removed. The incision drainage site looks very healthy and it is healing well. There is no redness induration or yessy thema. She states that it is still bleeding a little bit with a small amount of discharge. She denies any fevers or chills. Exam Constitutional Constitutional: no acute distress *Routine HEENT Exam Head: Present normocephalic Eye: Present EOMI and PERRL ENT: Present mucous membranes moist *Routine Neck Exam Neck: Present supple; Absent lymphadenopathy *Routine Respiratory Exam Respiratory: Present CTA bilaterally *Routine Cardiovascular Exam Cardiovascular: Present RRR *Routine Abdominal Exam Abdominal: Present soft and normoactive bowel sounds; Absent tenderness *Routine Exam Comments: Small incision and drainage site is healing well. No signs of cellulitis or skin infection. No significant drainage. No bleeding noted. Area was irrigated with normal saline and a bandage was applied over the site. Patient was instructed to clean this area 1-2 times a day and reapply the Band-Aid. *Routine Extremities Exam Extremities: Absent cyanosis, clubbing or edema *Routine Skin Exam Skin: Present warm; Absent rash *Routine Neurological Exam Neurological: Present alert and oriented X3 Assessment and Plan *Assessment and plan (1) Abscess, gluteal, right: Status: Acute Category: Medical Code(s): L02.31 - Cutaneous abscess of buttock Plan: Continues to heal well. Patient was instructed on hygiene of the area. Instructed on how and when to clean the area. Patient will follow-up so that I can check on it on Thursday when she gets off work. Patient has not started her p.o. antibiotic but will fill it and start it today.
== END 2023-07-04 23:59 | disposition home or self-care (01) ==
LOC: INF 10:01
PROVIDERS: PCP Family Medicine; Visit Provider Obstetrics & Gynecology
DX: L02.31 Cutaneous abscess of buttock (principal)
CPT/HCPCS: G0463

== ENCOUNTER 2023-08-27 10:45 | Outpatient (CLI) | payer OTHER, SELFPAY | END 2023-08-27 23:59 | disposition home or self-care (01) | LOC: LAB.DROPOF 08-28 09:47 | PROVIDERS: PCP Student in an Organized Health Care Education/Training Program; Visit Provider Student in an Organized Health Care Education/Training Program | DX: J02.9 Acute pharyngitis, unspecified (principal) | CPT/HCPCS: 87070; 87077 ==

== ENCOUNTER 2023-12-04 11:14 | Outpatient (CLI) | payer OTHER, SELFPAY ==
[2023-12-04 17:46] LABS: Adenovirus,PCR Not Detected (NotDetected); Coronavirus 229E Not Detected (NotDetected); Coronavirus NL63 Not Detected (NotDetected); Coronavirus OC43 Not Detected (NotDetected); Coronovirus HKU1,PCR Not Detected (NotDetected); Human Metapneumovirus Not Detected (NotDetected); Influenza A, PCR Not Detected (NotDetected); Influenza AH1, 2009 Not Detected (NotDetected); Influenza AH1, PCR Not Detected (NotDetected); Influenza AH3,PCR Not Detected (NotDetected); Influenza B, PCR Not Detected (NotDetected); Parainfluenza 1, PCR Not Detected (NotDetected); Parainfluenza 2, PCR Not Detected (NotDetected); Parainfluenza 3, PCR Not Detected (NotDetected); Parainfluenza 4, PCR Not Detected (NotDetected); Respiratory Syncytial Virus Not Detected (NotDetected); Rhinovirus/Enterovirus Not Detected (NotDetected)
[2023-12-04 21:26] LABS: Bordetella Pertussis Not Detected (NotDetected); Chlamydophila Pneumoniae, PCR Not Detected (NotDetected); Coronavirus 19, PCR Not Detected (NotDetected); Mycoplasma Pneumoniae, PCR Not Detected (NotDetected)
== END 2023-12-04 23:59 | disposition home or self-care (01) ==
LOC: LAB.DROPOF 12-07 11:14
PROVIDERS: PCP Student in an Organized Health Care Education/Training Program; Visit Provider Student in an Organized Health Care Education/Training Program
DX: R50.9 Fever, unspecified (principal)
CPT/HCPCS: 87070; 87265; 87486; 87581; 87632; 87635

== ENCOUNTER 2024-01-18 15:50 | Outpatient (CLI) | payer OTHER, SELFPAY ==
[2024-01-18 19:08] LABS: Alanine Aminotransferase 18 U/L (12-78); Albumin Level 4.3 g/dl (3.5-5.0); Albumin/Globulin Ratio 1.4 (1.1-1.8); Alkaline Phosphatase 40 U/L (38-126); Anion Gap 12.2 mEq/L (5-15); Aspartate Amino Transferase 32 U/L (14-36); Bilirubin,Total 0.4 mg/dl (0.2-1.3); Blood Urea Nitrogen 14 mg/dl (7-17); Calcium 9.9 mg/dl (8.4-10.2); Carbon Dioxide 29 mmol/L (22.0-30.0); Chloride 102 mmol/L (98-107); Chol/HDL Ratio 2.3 (1-3.5); Cholesterol 205 mg/dl (140-200); Estimated Glomerular Filt Rate 65 ml/min (>60); GFR (African American) 79 ML/MIN (>60); Glucose 84 mg/dl (74-100); HDL Cholesterol 91 mg/dl (40-60); Potassium 4.2 mmoL/L (3.5-5.1); Sodium 139 mmol/L (136-145); Total Protein,Serum 7.3 g/dl (6.3-8.2); Triglycerides 300 mg/dl (30-150); VLDL Cholesterol 60 mg/dL (0-40)
[2024-01-18 19:19] LABS: Direct LDL Cholesterol 86.58 mg/dL (100-129)
== END 2024-01-18 23:59 | disposition home or self-care (01) ==
LOC: LAB.DROPOF 01-19 15:04
PROVIDERS: PCP Family Medicine; Visit Provider Family Medicine
DX: Z00.00 Encounter for general adult medical examination without abnormal findings (principal)
CPT/HCPCS: 80053; 80061; 84443

== ENCOUNTER 2024-01-22 15:15 | Outpatient (CLI) | payer OTHER, SELFPAY ==
[2024-01-22 18:16] LABS: Basophils # 0.1 K/mm3 (0-0.2); Basophils % 1.1 % (0.1-2.0); Eosinophils # 0.2 K/mm3 (0.0-0.4); Eosinophils % 1.5 % (0.1-12.0); Hematocrit 41.3 % (37.0-47.0); Hemoglobin 14.6 g/dL (12.2-16.2); Lymphocytes # 2.8 K/mm3 (0.7-4.5); Mean Corpuscular HGB Conc 35.2 g/dL (31.8-35.4); Mean Corpuscular Hemoglobin 31.9 pg (27.0-31.2); Mean Corpuscular Volume 90.6 fl (81-99); Mean Platelet Volume 8.1 fl (7.4-10.4); Monocytes # 0.6 K/mm3 (0.1-1.0); Monocytes % 6.1 % (1.7-9.3); Neutrophils # 6.6 K/mm3 (1.8-7.8); Neutrophils % 64.4 % (37.0-80.0); Platelet Count 371 K/mm3 (142-424); Red Blood Count 4.56 M/mm3 (4.20-5.40); Red Cell Distribution Width 12.7 % (11.5-17.5); White Blood Count 10.2 K/mm3 (4.8-10.8)
== END 2024-01-22 23:59 | disposition home or self-care (01) ==
LOC: LAB.DROPOF 01-24 08:59
PROVIDERS: PCP Family Medicine; Visit Provider Family Medicine
DX: I10 Essential (primary) hypertension (principal); Z00.00 Encounter for general adult medical examination without abnormal findings
CPT/HCPCS: 85025

== ENCOUNTER 2024-06-16 15:45 | Outpatient (CLI) | payer OTHER, SELFPAY ==
[2024-06-16 18:57] LABS: Hemoglobin A1C 5.1 % (4.0-6.0)
[2024-06-16 19:00] LABS: Chol/HDL Ratio 2.9 (1-3.5); Cholesterol 195 mg/dl (140-200); HDL Cholesterol 68 mg/dl (40-60); Triglycerides 287 mg/dl (30-150); VLDL Cholesterol 57 mg/dL (0-40)
[2024-06-16 19:11] LABS: Direct LDL Cholesterol 68.18 mg/dL (100-129)
[2024-06-16 19:26] LABS: Triiodothryronine (T3) Uptake 25 % (23.5-40.5)
[2024-06-16 19:32] LABS: Free Thyroxine Index 2.4 ug/dL (5.93-13.13); T4 (Thyroxine) 9.4 ug/dl (5.53-11.0)
[2024-06-16 19:45] LABS: Thyroid Stimulating Hormone 1.92 uIU/mL (0.465-4.68)
== END 2024-06-16 23:59 | disposition home or self-care (01) ==
LOC: LAB.DROPOF 06-17 12:50
PROVIDERS: PCP Family Medicine; Visit Provider Family Medicine
DX: R73.03 Prediabetes (principal); E03.9 Hypothyroidism, unspecified; I10 Essential (primary) hypertension; Z79.85 Long-term (current) use of injectable non-insulin antidiabetic drugs
CPT/HCPCS: 80061; 83036; 84436; 84443; 84479

== ENCOUNTER 2025-02-15 08:32 | Outpatient (CLI) | payer OTHER, SELFPAY ==
[2025-02-15 15:07] LABS: Hematocrit 41.5 % (37.0-47.0); Hemoglobin 13.5 g/dL (12.2-16.2); Immature Granulocytes % 0.2 %; Mean Corpuscular HGB Conc 32.5 g/dL (31.8-35.4); Mean Corpuscular Hemoglobin 30.6 pg (27.0-31.2); Mean Corpuscular Volume 94.1 fl (81-99); Nucleated Red Blood Cells % 0 %; Platelet Count 351 K/mm3 (142-424); Red Blood Count 4.41 M/mm3 (4.20-5.40); Red Cell Distribution Width-SD 41.6 fL; White Blood Count 9.0 K/mm3 (4.8-10.8)
[2025-02-15 15:34] LABS: Alanine Aminotransferase 40 U/L (12-78); Albumin Level 4.0 g/dl (3.5-5.0); Albumin/Globulin Ratio 1.4 (1.1-1.8); Alkaline Phosphatase 47 U/L (38-126); Anion Gap 9.4 mEq/L (5-15); Aspartate Amino Transferase 46 U/L (14-36); Bilirubin,Total 0.4 mg/dl (0.2-1.3); Blood Urea Nitrogen 15 mg/dl (7-17); Calcium 9.3 mg/dl (8.4-10.2); Carbon Dioxide 29 mmol/L (22.0-30.0); Chloride 105 mmol/L (98-107); Cholesterol 188 mg/dl (140-200); Creatinine,Serum 1.00 mg/dl (0.52-1.04); Estimated Glomerular Filt Rate 58 ml/min (>60); GFR (African American) 70 ML/MIN (>60); Globulin 2.9 g/dL (1.3-3.2); Glucose 89 mg/dl (74-100); HDL Cholesterol 89 mg/dl (40-60); Potassium 4.4 mmoL/L (3.5-5.1); Sodium 139 mmol/L (136-145); Total Protein,Serum 6.9 g/dl (6.3-8.2); Triglycerides 204 mg/dl (30-150)
[2025-02-15 15:46] LABS: 25-OH Vitamin D, Total 67.8 ng/mL (30-100)
[2025-02-15 16:02] LABS: Thyroid Stimulating Hormone 0.86 uIU/mL (0.465-4.68)
--- OUTSIDE RECORDS SUMMARY | 2025-02-17 08:36 | XMS_ITS ---
Author Organization Unknown ENCOUNTERS Encounter Performer Location Date Diagnosis Diagnosis Status Pre Admit Sarah Shah ([facility]) [facility] [address] [facility] [address] [place] [address] [phone] Emergency Bari Luis Manuel ([facility]) [facility] [address] [facility] [address] [place] [address] [id number] VIMAL Pre Admit Patsy Tee [facility] [address] [facility] [address] [place] [address] [id number] Emergency Bassam Diggs [facility] [address] [facility] [address] [place] [address] [id number] PAT Emergency [facility] [address] [facility] [address] [place] [address] [id number] VIMAL [facility] [address] [facility] [address] [place] [address] [id number] VIMAL Emergency Silvia Patton [facility] [address] [facility] [address] [place] [address] [id number] VIMAL Emergency [facility] [address] [facility] [address] [place] [address] [id number] VIMAL Emergency [facility] [address] [facility] [address] [place] [address] [id number] VIMAL Emergency Sarah Shah [facility] [address] [facility] [address] [place] [address] [id number] VIMAL Emergency [facility] [address] [facility] [address] [place] [address] [id number] [facility]IMAL Emergency [facility] [address] [facility] [address] [place] [address] [id number] VIMAL Emergency [facility] [address] [facility] [address] [place] [address] [id number] VIMAL Emergency [facility] [address] [facility] [address] [place] [address] [id number] VIMAL Emergency Sarah Shah [facility] [address] [facility] [address] [place] [address] [id number] VIMAL Emergency Rich William [facility] [address] [facility] [address] [place] [address] [phone] VIMAL *Note: Encounters from your own facility or health system may be excluded. Allergies, Adverse Reactions, Alerts Allergen Type Severity Identification Date tetracaine drug allergy 1 [id number] lidocaine drug allergy 1 [id number] adonis produc propensity to adverse reactions 0 [id number] codeine drug allergy 0 [id number] butamben drug allergy 1 48816360 latex drug allergy 1 [id number] benzocaine drug allergy 1 [id number] Medications Name Date Quantity Days Supplied GPI Number
--- OUTSIDE RECORDS SUMMARY | 2025-02-17 08:36 | XMS_ITS | Clinical Summary ---
Author Organization [facility] Address [address] [place] [phone] Phone [email or web address] Care Team Providers Care Pig Sticker Name Role Phone Unavailable Primary Care Provider Unavailabl e Allergies Active Allergy Reactions Criticality Noted Date Comments Codeine GI intolerance Low 03/15/2020 N/V Medications Euthyrox 50 MCG tablet 1 Active estradiol (ESTRACE) 2 MG tablet TAKE 1 TABLET BY MOUTH ONCE DAILY FOR HORMONE REPLACEMENT 0 Active ALPRAZolam (XANAX) 0.5 MG tablet TAKE 1 TABLET BY MOUTH THREE TIMES DAILY FOR ANXIETY 0 Active rosuvastatin (CRESTOR) 10 MG tablet Take 10 mg by mouth 1 (one) time each day. Active bisoprolol (ZEBETA) 5 MG tablet Take 5 mg by mouth 1 (one) time each day. 1/2 tablet daily Active Active Problems No known active problems Social History Tobacco Use Types Packs/Day Years Used Date Smoking Tobacco: Never Smokeless Tobacco: Never Intimate Partner Violence Answer Date R ecorded Insults You Not on file 05/28/2020 Threatens You Not on file 05/28/2020 Screams at You Not on file 05/28/2020 Physically Hurt Not on file 05/28/2020 Intimate Partner Violence Score Not on file 05/28/2020 Stress Answer Date Recorded Stress in your Life Not on file 12/23/2023 Dealing with Stress 3 12/23/2023 Comments Unknown Sex and Gender Information Value Date Recorded Sex Assigned at Not on file Legal Sex Female 8:30 AM [employer] Gender Identity Not on file Sexual Orientation Not on file Last Filed Vital Signs Vital Sign Reading Time Taken Comments Blood Pressure - - Pulse 89 12/28/2020 10:44 AM EST Temperature 37.8 C (100 F) 12/28/2020 10:44 AM EST Respiratory Rate - - Oxygen Saturation 91% 12/28/2020 10:44 AM EST Inhaled Oxygen Concentration - - Weight - - Height - - Body Mass Index - - Plan of Treatment Health Maintenance Due Date Last Done Comments CT Colonography 1970 Cervical Cancer Screening Combo 1970 Colonoscopy 1970 Colorectal Cancer Screening Combo 1970 DNA Cologuard 1970 Dental Cleaning/Exam 1970 FIT or FOBT Test 1970 HIV Screening 1970 HPV only / HPV + Pap 1970 Hepatitis C Screening 1970 Pap only testing 1970 Sigmoidoscopy 1970 Annual Preventive Exam 1988 Hep B Infection Screening - Triple Screen 1988 Hepatitis B Immunization (1 of 3 - 19+ 3-dose series) 1989 Tetanus Diphtheria and Pertu ssis Immunization (1 - Tdap) 1989 Breast Cancer Screening 2000 Pneumococcal: 50+ Years (1 o f 1 - PCV) 2020 Zoster Immunization (1 of 2) 2020 Covid-19 Immunization (1 - 2 025-26 season) 2024 Influenza Immunization (#1) 2024 HIB Immunization Aged Out No longer e ligible based on patient's age to complete this topic HPV Immunization Aged Out No longer e ligible based on patient's age to complete this topic Hepatitis A Immunization Aged Out No longer eligible based on patient's age to complete this topic Polio Immunization Aged Out No longer eligible based on patient's age to complete this topic Insurance
== END 2025-02-15 23:59 | disposition home or self-care (01) ==
LOC: LAB.DROPOF 02-17 08:33
PROVIDERS: PCP Family Medicine; Visit Provider Family Medicine
DX: E03.9 Hypothyroidism, unspecified (principal); I10 Essential (primary) hypertension; E88.810 Metabolic syndrome; E55.9 Vitamin D deficiency, unspecified
CPT/HCPCS: 80053; 80061; 82306; 84443; 85025